=== PATIENT | female | born 1940 ===

== ENCOUNTER 2016-12-27 13:27 | Inpatient (IN) | payer MEDICARE, OTHER ==
[2016-12-27 13:27] VITALS: BMI 23.6
[2016-12-27] MEDS ORDERED: Albuterol-Ipratrop 3 mg / 0.5 (3 ml) UD ONE ×3 (13:31→19:40)
[2016-12-27] MEDS: Albuterol-Ipratrop 3 mg / 0.5 (3 ml) UD INH SCH ×2 (13:40→14:10)
[2016-12-27] MEDS ORDERED: Magnesium Sulfate 1 gm in D5W 200 ML IVPB ONE (13:47)
[2016-12-27 14:09] LABS: BASO # 0.1 K/uL (0.0-0.2); EOS # 0.5 K/uL (0.0-0.7); EOS % 6.2 % (0.0-4.0); LYMPH # 1.6 K/uL (1.0-4.3); LYMPH % 21.1 % (20.0-40.0); MEAN CELL VOLUME 73.1 fL (81.0-99.0); MEAN CORPUSCULAR HEMOGLOBIN 22.8 pg (27.0-31.0); MEAN CORPUSCULAR HGB CONC 31.2 g/dL (33.0-37.0); MEAN PLATELET VOLUME 8.6 fL (7.2-11.7); MONO # 0.5 K/uL (0.0-0.8); MONO % 6.4 % (0.0-10.0); RED CELL DISTRIBUTION WIDTH 17.7 % (11.5-14.5); WHITE BLOOD COUNT 7.8 K/uL (4.8-10.8)
[2016-12-27 14:13] LABS: CHLORIDE 101 mmol/L (98-107)
[2016-12-27 14:14] LABS: DRAW SITE RRA
[2016-12-27 14:14] LABS: POTASSIUM 4.4 mmol/L (3.6-5.2); SODIUM 138 mmol/L (132-148)
[2016-12-27 14:16] LABS: ALB/GLOB RATIO 1.4 (1.0-2.1); AST/SGOT 26 U/L (14-36); BILIRUBIN,TOTAL 0.2 mg/dL (0.2-1.3); BLOOD UREA NITROGEN 33 mg/dL (7-17); CARBON DIOXIDE 23 mmol/L (22-30); GFR AFRICAN-AMERICAN 44; TOTAL PROTEIN 7.4 g/dL (6.3-8.3)
[2016-12-27 14:17] LABS: ALKALINE PHOSPHATASE 54 U/L (38-126); ALT/SGPT 11 U/L (9-52); CALCIUM 9.2 mg/dl (8.6-10.4); GLUCOSE,RANDOM 108 mg/dL (65-105)
[2016-12-27] MEDS ORDERED: Albuterol 0.083% Inhal Sol (2.5 mg/3 mL) UD IH STA ×2 (14:49)
--- NOTE | 2016-12-27 15:22 | C.PDOC ---
History Of Present Illness 76 year old female presents to the ED C/O shortness of breath. Patient is audibly wheezing and speaking only 2-3 words at a time. Prior records reviewed show she has a history of asthma. HPI and ROS limited secondary to clinical condition. Time Seen by Provider: 12/27/16 13:41 Chief Complaint (Nursing): Respiratory Distress History Per: EMS History/Exam Limitations: clinical condition Onset/Duration Of Symptoms: Hrs Current Symptoms Are (Timing): Still Present Severity: Moderate Past Medical History Reviewed: Historical Data, Nursing Documentation, Vital Signs Vital Signs: Last Vital Signs Temp 98.4 F 01/01/17 07:00 Pulse 89 01/01/17 07:00 Resp 18 01/01/17 07:00 BP 147/81 01/01/17 07:00 Pulse Ox 98 01/01/17 07:00 - Medical History PMH: Anxiety, Arthritis, Asthma, Diabetes, Gastritis, HTN, Kidney Stones (3 MONTHS), Chronic Kidney Disease - [facility] Procedures INFLUENZA VACCINATION (09/24/14) VACCINATION NEC (07/20/13) Family History: States: Other Other Family History: noncontributory - Social History Hx Tobacco Use: No Hx Alcohol Use: No Hx Substance Use: No - Immunization History Hx Tetanus Toxoid Vaccination: No Hx Influenza Vaccination: No Hx Pneumococcal Vaccination: No Review Of Systems Review Of Systems: ROS cannot be obtained secondary to pt's inabilty to answer questions. (Limited secondary to clinical condition) Cardiovascular: Negative for: Chest Pain, Palpitations Respiratory: Positive for: Shortness of Breath, Wheezing Gastrointestinal: Negative for: Nausea, Vomiting, Abdominal Pain, Diarrhea Genitourinary: Negative for: Dysuria, Hematuria Physical Exam - Physical Exam Appears: Non-toxic, Other (+Moderate respiratory distress) Skin: Normal Color, Warm, Dry Head: Normacephalic Eye(s): bilateral: Normal Inspection Oral Mucosa: Moist Chest: Symmetrical, No Deformity Cardiovascular: Rhythm Regular (+Tachycardic) Respiratory: Accessory Muscle Use (+Moderate accessory muscle use), No Rales, No Rhonchi, Wheezing (+Diffuse expiratory wheezing bilaterally), Other (+ Audible wheezing, speaking in 1-2 word sentences) Gastrointestinal/Abdominal: Normal Exam, Bowel Sounds, Soft, No Tenderness Extremity: Normal ROM, No Pedal Edema, No Calf Tenderness, No Deformity Neurological/Psych: Oriented x3 ED Course And Treatment - Laboratory Results Result Diagrams: 01/01/17 11:09 01/01/17 11:09 ECG: Interpreted By Me, Viewed By Me ECG Rhythm: Sinus Tachycardia ECG Interpretation: Abnormal (tachycardic ) Interpretation Of ECG: Normal axis. No acute ST/T wave changes. Rate From EC (bpm) O2 Sat by Pulse Oximetry: 100 (RA) Pulse Ox Interpretation: Normal - Radiology CXR: Interpreted by Me, Viewed By Me (no infiltrates/effusions) Progress Note: Blood work, CXR, EKG ordered and reviewed. Patient placed on Bipap emergently. She was given IV solumedrol 125mg, IV magnesium sulfate 2g, Terbutaline SC, and duoneb treatments. Reevaluation Time: 15:35 Reassessment Condition: Improved (Patient reassessed, states she feels better. On exam, she has (decreased) expiratory wheezing B/L without accessory muscle use. Will need admission for asthma exacerbation.) - Physician Consult Information Physician Contacted: Valentina Farmer Outcome Of Conversation: Discussed patient with hospitalist, she agrees with admission for asthma exacerbation. Critical Care Time - Critical Care Note Total Time (in mins): 45 Documented critical care: time excludes all time spent performing seperately billable procedures. Medical Decision Making Medical Decision Making: differential diagnoses considered: asthma exacerbation, copd, chf, ID/ACS, pneumonia, PE, lung CA, pleural effusion, cardiac tamponade/pericardial effusion Disposition - Disposition Disposition: HOME/ ROUTINE Disposition Time: 15:43 Condition: FAIR - Clinical Impression Clinical Impression: Exacerbation of asthma, Dyspnea - Scribe Statement The provider has reviewed the documentation as recorded by the Scribe Santana Markham. Provider Attestation: All medical record entries made by the Scribe were at my direction and personally dictated by me. I have reviewed the chart and agree that the record accurately reflects my personal performance of the history, physical exam, medical decision making, and the department course for this patient. I have also personally directed, reviewed, and agree with the discharge instructions and disposition. Decision To Admit - Pt Status Changed To: Hospital Disposition Of: Inpatient - Admit Certification Admit to Inpatient:: After my assessment, the patient will require hospitalization for at least two midnights. This is because of the severity of symptoms shown, intensity of services needed, and/or the medical risk in this patient being treated as an outpatient. - InPatient: Physician Admission Certification: I certify that this patient requires 2 or more midnights of care for the following reason:: see notes - . Bed Request Type: Telemetry Admitting Physician: Valentina Farmer Patient Diagnosis: Exacerbation of asthma
[2016-12-27] MEDS ORDERED: Albuterol 0.083% Inhal Sol (2.5 mg/3 mL) UD ONE (15:38)
--- NOTE | 2016-12-27 15:50 | CP.PCM.HP ---
<Nilda Stafford - Last Filed: 12/27/16 17:30> History of Present Illness - History of Present Illness History of Present Illness: CC: shortness of breath for 2 days HPI: Patient is a 76 year old female with past medical history of DM, HTN, osteoporosis, asthma and shingles presenting with worsening shortness of breath and a cough for two days. Patient reports an extensive history of asthma but reports that over the past two days her symptoms would not resolve with her home medications. She also reported a cough over the past two days that was productive at first with yellow colored phlegm which was now more dry with some clear sputum. Patient was also complaining of body aches and pains in her legs bilaterally and in her lower back towards her left side. Patient denied any fever, chills, chest pain, palpitations, abdominal pain, nausea, vomiting, bowel /bladder complaints. Patient denied any recent travel or sick contacts. Patient denies ever being intubated. She was last seen and admitted at in September 2016 for similar complaints and was treated with IV steroids and nebulizers and had a negative septic workup and discharged on PO antibiotics and a medrol dose back and continued on her home medications. 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 absent: Chills, Fever - EENT Eyes: As Per HPI. absent: Change in Vision Ears: As Per HPI. absent: Dizziness Nose/Mouth/Throat: As Per HPI, Sore Throat. absent: Nasal Congestion - Cardiovascular Cardiovascular: As Per HPI, Dyspnea. absent: Chest Pain, Edema, Leg Edema, Palpitations - Respiratory Respiratory: As Per HPI, Cough, Dyspnea, Dyspnea on Exertion, Wheezing, Chest Congestion, Pain with Coughing. absent: Hemoptysis, Stridor, Excessive Mucous Production, Change in Mucous Color - Gastrointestinal Gastrointestinal: As Per HPI. absent: Abdominal Pain, Constipation, Diarrhea, Nausea, Vomiting - Genitourinary Genitourinary: As Per HPI. absent: Dysuria, Hematuria, Pyuria, Urinary Frequency - Musculoskeletal Musculoskeletal: As Per HPI, Arthralgias, Back Pain, Myalgias. absent: Numbness , Tingling - Integumentary Integumentary: As Per HPI. absent: Pruritus, Rash - Neurological Neurological: As Per HPI. absent: Dizziness, Weakness - Endocrine Endocrine: As Per HPI. absent: Palpitations - Hematologic/Lymphatic Hematologic: As Per HPI. absent: Easy Bleeding, Easy Bruising Past Patient History - Infectious Disease Hx of Infectious Diseases: None - Past Medical History & Family History Past Medical History?: Yes - Past Social History Smoking Status: Former Smoker - CARDIAC Hx Hypertension: Yes - PULMONARY Hx Asthma: Yes - NEUROLOGICAL Hx Neurological Disorder: No - HEENT Hx HEENT Problems: Yes Hx Cataracts: Yes - RENAL Hx Chronic Kidney Disease: Yes Hx Kidney Stones: Yes (3 MONTHS) - ENDOCRINE/METABOLIC Hx Endocrine Disorders: Yes Hx Diabetes Mellitus Type 2: Yes - HEMATOLOGICAL/ONCOLOGICAL Hx Blood Disorders: No - INTEGUMENTARY Hx Dermatological Problems: No - MUSCULOSKELETAL/RHEUMATOLOGICAL Hx Arthritis: Yes - GASTROINTESTINAL Hx Gastritis: Yes - GENITOURINARY/GYNECOLOGICAL Hx Genitourinary Disorders: No - PSYCHIATRIC Hx Anxiety: Yes Hx Substance Use: No - SURGICAL HISTORY Hx Surgeries: Yes Hx Section: Yes - ANESTHESIA Hx Anesthesia: Yes Hx Anesthesia Reactions: No Hx Malignant Hyperthermia: No Meds Allergies/Adverse Reactions: Allergies Allergy/AdvReac Type Severity Reaction Status Date / Time No Known Allergies Allergy Verified 02/05/17 15:52 Physical Exam - Constitutional Appears: Non-toxic, No Acute Distress - Head Exam Head Exam: NORMAL INSPECTION - Eye Exam Eye Exam: Normal appearance, PERRL. absent: Conjunctival injection, Scleral icterus Pupil Exam: NORMAL ACCOMODATION Additional comments: b/l cataracts - ENT Exam ENT Exam: Mucous Membranes Moist Additional comments: Patient on BiPAP - Neck Exam Neck exam: Positive for: Normal Inspection. Negative for: Lymphadenopathy, Tenderness - Respiratory Exam Respiratory Exam: Prolonged Expiratory Phase, Rhonchi (diffuse bilateral), Wheezes (diffuse bilateral). absent: Accessory Muscle Use, Chest Wall Tenderness, Clear to Auscultation Bilateral, Rales, Respiratory Distress, Stridor - Cardiovascular Exam Cardiovascular Exam: Tachycardia, REGULAR RHYTHM - GI/Abdominal Exam GI & Abdominal Exam: Normal Bowel Sounds, Soft. absent: Distended, Firm, Rigid , Tenderness - Extremities Exam Extremities exam: Positive for: normal inspection. Negative for: calf tenderness, pedal edema, tenderness - Back Exam Back exam: NORMAL INSPECTION. absent: rash noted, tenderness - Neurological Exam Neurological exam: Alert, Oriented x3 - Psychiatric Exam Psychiatric exam: Normal Affect, Normal Mood - Skin Skin Exam: Dry, Intact, Normal Color, Warm Results - Vital Signs Recent Vital Signs: Last Vital Signs Temp 97.9 F 12/27/16 13:36 Pulse 103 H 12/27/16 14:32 Resp 24 12/27/16 14:32 BP 161/67 H 12/27/16 14:32 Pulse Ox 100 12/27/16 15:28 - Labs Result Diagrams: 12/27/16 14:02 12/27/16 14:02 Labs: Laboratory Results - last 24 hr 12/27/16 12/27/16 12/27/16 13:40 14:02 14:08 WBC 7.8 RBC 3.97 Hgb 9.0 L Hct 29.0 L MCV 73.1 L D MCH 22.8 L MCHC 31.2 L RDW 17.7 H Plt Count 267 MPV 8.6 Neut % (Auto) 65.3 Lymph % (Auto) 21.1 [place] % (Auto) 6.4 Eos % (Auto) 6.2 H Baso % (Auto) 1.0 Neut # 5.1 Lymph # 1.6 [place] # 0.5 Eos # 0.5 Baso # 0.1 PT 11.5 INR 1.0 APTT 26 Puncture Site Rra pCO2 27 L pO2 326 H HCO3 26.3 ABG pH 7.54 H ABG Total CO2 23.9 ABG O2 Saturation 99.5 H ABG Base Excess 1.7 Yuri Test N/a ABG Potassium 3.9 A-a O2 Difference -3.0 Respiratory Index 0 Glucose 165 H Lactate 2.5 H FiO2 50.0 Inspiratory BiPAP 12 Expiratory BiPAP 6 Sodium 138 136.0 Potassium 4.4 Chloride 101 112.0 H Carbon Dioxide 23 Anion Gap 19 BUN 33 H Creatinine 1.4 H Est GFR ( Amer) 44 Est GFR (Non-Af Amer) 37 POC Glucose (mg/dL) 134 H Random Glucose 108 H Calcium 9.2 Total Bilirubin 0.2 AST 26 ALT 11 Alkaline Phosphatase 54 Total Creatine Kinase 157 H CK-MB (Mass) 4.08 H Troponin I < 0.0120 NT-Pro-B Natriuret Pep 476 Total Protein 7.4 Albumin 4.3 Globulin 3.1 Albumin/Globulin Ratio 1.4 Arterial Blood Potassium 3.9 Assessment & Plan - Assessment and Plan (Free Text) Assessment: 76 year old female PMHx asthma, DM, HTN, osteoporosis, shigles presenting with shortness of breath and cough for two days Plan: (1) Asthma Exacerbation Assessment and Plan: * In the ED, given Duonebs and Solumedrol 125mg IV X1, IV mag sulfate, terbutaline SC and placed on BiPAP * Solumedrol 40mg IV [id number] * Duoneb 3ml q4h * Peak flow: 40 * Singular 10mg PO HS * Phenergan with codeine for cough 5ml PO Q6H PRN * Mucinex 600mg PO BID * f/u repeat CXR in the AM * f/u d-dimer * f/u Strep pneumonaie, Legionella, Influenza AB, and Mycoplasma Igm * Avelox IVPB Q24 for pneumonia coverage Status: Acute (2) Chronic Anemia Assessment and Plan: * monitor H/H Status: chronic (3) Diabetes mellitus Assessment and Plan: * held metformin 500mg BID * ISS/Accuchecks ACHS * Gabapentin 100mg PO BID * follow up HgbA1c * Moderate consistent carb diet Status: Chronic (4) Hypertension Assessment and Plan: * verapamil 240mg po daily * HCTZ 25mg PO daily * hold SBP < 100, HR <60 Status: Chronic (5) Post herpetic neuralgia Assessment and Plan: * History of shingles * hold tramadol 50mg PO Q6hprn Status: Chronic (6) Lung nodule, solitary Assessment and Plan: * Patient with history on imaging CT chest noted for 3.5 nodule * Monitor Status: Chronic (7) Unspecified bladder mass Assessment and Plan: * Patient did not follow up with urology for cystoscopy * f/u UA and renal u/s Status: Chronic (8) Prophylactic measure Assessment and Plan: SCDs protonix 40mg IV daily heparin 5000 units [id number] NS @ 60cc/hr Heart healthy moderate consistent carb diet Status: Acute Plan discussed with Dr. Marleny Stafford PGY1 <Valentina Farmer V - Last Filed: 04/05/17 22:29> Results - Vital Signs Recent Vital Signs: Last Vital Signs Temp 98.3 F 01/05/17 15:12 Pulse 92 H 01/05/17 15:12 Resp 20 01/05/17 15:12 BP 165/85 H 01/05/17 15:12 Pulse Ox 99 01/05/17 15:12 - Labs Result Diagrams: 01/05/17 06:28 01/05/17 06:28 Attending/Attestation - Attestation I have personally seen and examined this patient.: Yes I have fully participated in the care of the patient.: Yes I have reviewed all pertinent clinical information: Yes Notes (Text): This is late computer entry for 12/27/16. Patient seen, examined, and case discussed with day-time resident. Discussed and agree with the assessment/plan written by the day-time resident.
[2016-12-27] MEDS ORDERED: Albuterol-Ipratrop 3 mg / 0.5 (3 ml) UD INH PRN ×2 (15:54→16:15)
[2016-12-27] MEDS ORDERED: Sodium Chloride 0.9% 1,000 ML IV SCH (16:45)
--- NOTE | 2016-12-27 16:57 | RAD ---
PROCEDURE: CHEST RADIOGRAPH, 1 VIEW HISTORY: SOB COMPARISON: Comparison made with chest radiograph 09/24/2016 and CTA chest 06/19/2016 FINDINGS: LUNGS: Hyperinflation with centrilobular emphysematous changes upper lobe predominance again noted however these changes were seen to better advantage on prior CTA. Suspect minor bibasilar atelectasis. Note is made of a curvilinear tubelike artifact overlying the right suprahilar and hilar region possibly representing overlying surface artifact. Clinical correlation with physical exam recommended. PLEURA: No pneumothorax or pleural fluid seen. CARDIOVASCULAR: Heart appears upper limits of normal/ borderline enlarged. OSSEOUS STRUCTURES: No significant abnormalities. VISUALIZED UPPER ABDOMEN: Normal. OTHER FINDINGS: None. IMPRESSION: Hyperinflation with centrilobular emphysematous changes upper lobe predominance again noted however these changes were seen to better advantage on prior CTA. Suspect minor bibasilar atelectasis. Note is made of a curvilinear tubelike artifact overlying the right suprahilar and hilar region possibly representing overlying surface artifact. Clinical correlation with physical exam recommended.
[2016-12-27] MEDS: MethylPREDNISolone 40 mg Vial IVP SCH (17:26)
[2016-12-27] MEDS: Moxifloxacin IV 400mg/250ml NS 250 ML IVPB SCH (17:36)
[2016-12-27] MEDS: guaiFENesin 600 mg ER Tab PO SCH (18:53)
[2016-12-27] MEDS: (Novolog) Insulin Aspart, Recombinant 100 u/ml 10 ml vial SC SCH (22:57)
[2016-12-27 23:00] LABS: VENOUS BLOOD GAS BASE EXCESS -7.6 mmol/L (0.0-2.0); VENOUS BLOOD GAS PCO2 27 mmHg (40-60); VENOUS BLOOD PH 7.38 (7.32-7.43)
--- NOTE | 2016-12-27 23:26 | CARD ---
APPROVED REPORT EKG Measurement Heart [id number] <Conclusion> Sinus tachycardia Otherwise normal ECG
[2016-12-27 23:34] LABS: VENOUS BLOOD GAS BASE EXCESS -6.5 mmol/L (0.0-2.0); VENOUS BLOOD GAS PCO2 25 mmHg (40-60); VENOUS BLOOD PH 7.42 (7.32-7.43)
[2016-12-28] MEDS: Sodium Chloride 0.9% 1,000 ML IV SCH ×4 (00:40→22:16)
[2016-12-28] MEDS: MethylPREDNISolone 40 mg Vial IVP SCH ×4 (01:00→23:50)
[2016-12-28] MEDS ORDERED: MethylPREDNISolone 40 mg Vial ONE ×2 (01:03→09:02)
[2016-12-28] MEDS ORDERED: Iohexol 240 (50 ml) ONE (01:36)
--- NOTE | 2016-12-28 03:57 | CT ---
EXAM: CT Abdomen and Pelvis With Intravenous Contrast CLINICAL HISTORY: 76 years old, female; Pain; Other: Lactic acidosis TECHNIQUE: Axial computed tomography images of the abdomen and pelvis with intravenous contrast. This CT exam was performed using one or more of the following dose reduction techniques: automated exposure control, adjustment of the mA and/or kV according to patient size, and/or use of iterative reconstruction technique. Coronal and sagittal reformatted images were created and reviewed. CONTRAST: 240 mL of oral administered intravenously. EXAM DATE/TIME: 12/28/2016 12:59 AM COMPARISON: No relevant prior studies available. FINDINGS: LIMITATIONS: Exam is somewhat limited by mild streak/motion artifact. LOWER THORAX: Very small pericardial effusion. Dense septum sign noted in the heart, a finding which can be seen with anemia. ABDOMEN: LIVER: No acute abnormality of the liver identified. GALLBLADDER AND BILE DUCTS: No CT evidence of acute cholecystitis. No evidence of significant biliary ductal dilatation. PANCREAS: No CT evidence of acute pancreatitis. SPLEEN: No acute abnormality of the spleen identified. ADRENALS: No acute abnormality of the adrenal glands identified. KIDNEYS AND URETERS: Moderate to severe right hydroureteronephrosis. No causative obstructing stones are seen, and this is suspected to be secondary to obstruction of the right ureter, at the level of the right UVJ, by the right sided bladder mass. Right renal cortical thinning, suggestive of chronic right hydronephrosis. Tiny, nonobstructing right renal stone. Low density lesion in the right kidney, measuring 2.8 cm, most likely a cyst. STOMACH AND BOWEL: Retained stool noted throughout the colon. No evidence of large bowel obstruction. No evidence of small bowel obstruction. No acute abnormality of the stomach or duodenum identified. APPENDIX: Appendix is seen, and is within normal limits in appearance. PELVIS: BLADDER: Rounded, masslike area of soft tissue density is seen in the bladder lumen posteriorly and on the right, which has a CT attenuation of 26 Hounsfield units. This measures 4.2 cm maximally, and is suspicious for a bladder mass, less likely resolving clot. Similar appearing but smaller round, masslike density in the bladder lumen anteriorly and on the left, measuring 1.1 cm, suspicious for a second bladder mass. REPRODUCTIVE:No acute abnormality of the reproductive organs is seen. No acute abnormality of the uterus identified. No evidence of large adnexal masses. ABDOMEN and PELVIS: INTRAPERITONEAL SPACE: No evidence of free intraperitoneal air or fluid. BONES/JOINTS: Small sclerotic lesion in the left ischial tuberosity. Tiny sclerotic lesion in the right iliac bone. These could represent bone islands, however, consider followup bone scan to exclude early sclerotic bony metastases, on a nonemergent basis. Bony structures appear demineralized. SOFT TISSUES: No acute abnormality of the visualized soft tissues is seen. VASCULATURE: No evidence of abdominal aortic aneurysm. No evidence of periaortic hemorrhage. LYMPH NODES: No evidence of diffuse lymphadenopathy. IMPRESSION: - Findings suspicious for bilateral bladder masses (less likely resolving bladder clot). The larger mass, located on the right posteriorly, measures 4.2 cm, and appears to be causing obstruction of the right ureter/right hydroureteronephrosis. Further workup is recommended. - Findings which can be seen with anemia. Recommend clinical correlation. - Small sclerotic bony lesions. See above. - See above for remaining findings.
[2016-12-28] MEDS ORDERED: Albuterol-Ipratrop 3 mg / 0.5 (3 ml) UD INH SCH (04:00)
[2016-12-28 04:24] LABS: BASO % 0.6 % (0.0-2.0); HEMATOCRIT 24.9 % (34.0-47.0); LYMPH # 0.7 K/uL (1.0-4.3); LYMPH % 12.8 % (20.0-40.0); MEAN CELL VOLUME 71.9 fL (81.0-99.0); MEAN CORPUSCULAR HEMOGLOBIN 23.1 pg (27.0-31.0); MEAN CORPUSCULAR HGB CONC 32.1 g/dL (33.0-37.0); MEAN PLATELET VOLUME 8.7 fL (7.2-11.7); MONO # 0.1 K/uL (0.0-0.8); RED CELL DISTRIBUTION WIDTH 17.3 % (11.5-14.5); WHITE BLOOD COUNT 5.7 K/uL (4.8-10.8)
[2016-12-28 04:43] LABS: POTASSIUM 4.1 mmol/L (3.6-5.2)
[2016-12-28 04:44] LABS: VENOUS BLOOD GAS BASE EXCESS -2.6 mmol/L (0.0-2.0); VENOUS BLOOD GAS PCO2 36 mmHg (40-60); VENOUS BLOOD PH 7.39 (7.32-7.43)
[2016-12-28 04:45] LABS: ALB/GLOB RATIO 1.3 (1.0-2.1); BILIRUBIN,TOTAL 0.2 mg/dL (0.2-1.3); TOTAL PROTEIN 6.9 g/dL (6.3-8.3)
[2016-12-28 04:46] LABS: CALCIUM 8.5 mg/dl (8.6-10.4); MAGNESIUM 1.8 mg/dL (1.6-2.3); PHOSPHOROUS 4.7 mg/dL (2.5-4.5)
[2016-12-28 05:15] LABS: RBC URINE 121 /hpf (0-3); URINE BILIRUBIN NEGATIVE (NEGATIVE); URINE BLOOD 2+ (NEGATIVE); URINE COLOR Yellow (YELLOW); URINE GLUCOSE (UA) NORMAL (Normal); URINE HYALINE CAST 0-2 /lpf (0-2); URINE KETONE NEGATIVE (NEGATIVE); URINE LEUKOCYTE ESTERASE NEG Leu/uL (Negative); URINE PROTEIN 2+ mg/dL (NEGATIVE); URINE UROBILINOGEN NORMAL mg/dL (0.2-1.0); WBC URINE 6 /hpf (0-5)
[2016-12-28] MEDS: (Novolog) Insulin Aspart, Recombinant 100 u/ml 10 ml vial SC SCH ×4 (09:02→22:08)
[2016-12-28] MEDS ORDERED: (Novolog) Insulin Aspart, Recombinant 100 u/ml 10 ml vial ONE ×2 (09:02→13:19)
[2016-12-28 09:52] LABS: VENOUS BLOOD GAS BASE EXCESS 0.4 mmol/L (0.0-2.0); VENOUS BLOOD GAS PCO2 31 mmHg (40-60); VENOUS BLOOD PH 7.48 (7.32-7.43)
[2016-12-28] MEDS: guaiFENesin 600 mg ER Tab PO SCH ×2 (10:01→18:07)
[2016-12-28] MEDS: Verapamil 240 mg ER Tab PO SCH (10:01)
--- NOTE | 2016-12-28 11:35 | RAD ---
HISTORY: cough COMPARISON: 12/27/2016 TECHNIQUE: Chest PA and lateral FINDINGS: LUNGS: Developing hazy opacities in the lung bases. PLEURA: Possible small right-sided pleural effusion. Biapical pleural parenchymal thickening noted. CARDIOVASCULAR: Normal. OSSEOUS STRUCTURES: The osseous structures demonstrate degenerative changes. Calcific tendinosis was in the right shoulder. VISUALIZED UPPER ABDOMEN: Upper abdomen is suboptimally evaluated. OTHER FINDINGS: None. IMPRESSION: Possible small right-sided pleural effusion. Developing hazy opacities in the lung bases. Underlying infection cannot be excluded.
--- NOTE | 2016-12-28 15:42 | US ---
PROCEDURE: Ultrasound of the Kidneys HISTORY: ckd COMPARISON: 06/22/2016 ultrasound of the kidneys. TECHNIQUE: Sonogram of the kidneys. FINDINGS: RIGHT KIDNEY: Measures: 10.7 x 4.9 x 4.4 cm. Thin and mildly echogenic renal cortex. Severe hydronephrosis with echogenic debris within the collecting system. LEFT KIDNEY: Measures: 9.1 x 5.1 x 5.2 cm. Mildly echogenic cortex. No hydronephrosis. OTHER FINDINGS: Heterogeneous echogenicity mass in the urinary bladder measuring 3.4 x 3.6 x 4.4 centimeters. Doppler interrogation demonstrates vascularity within it. Additional smaller mass measuring 1.5 x 1.4 x 1.5 centimeter also noted from the nondependent aspect of the urinary bladder wall. IMPRESSION: Re- demonstration severe hydronephrosis (worse than the prior ultrasound from 06/22/2016) of the right renal collecting system with echogenic debris within it. Bladder mass at least to identified the larger measuring 3.4 x 3.6 x 4.4 centimeters. This mass has increased in size since the prior ultrasound. Direct visualization with cystoscopy recommended. Bilateral echogenic cortex suggestive of renal parenchymal disease.
[2016-12-28] MEDS: Promethazine/Cod 6.25mg-10mg/5ml Syr UD PO PRN ×2 (17:12→23:58)
[2016-12-28] MEDS: Moxifloxacin IV 400mg/250ml NS 250 ML IVPB SCH (18:57)
--- NOTE | 2016-12-28 20:31 | CP.PCM.PN ---
<Phill Ruiz - Last Filed: 12/28/16 21:52> Subjective - Date & Time of Evaluation Date of Evaluation: 12/28/16 Time of Evaluation: 09:30 - Subjective Subjective: 76 year old female with past medical history of DM, HTN, osteoporosis, asthma and shingles presenting with worsening shortness of breath and productive cough for two days. Pt's lactic acid has been as high as 9.5, but has normalized over the last 2 days to 2.1. She has improved after breathing treatments and Solumedrol. Possible etiologies could be due to asthma exacerbation vs anemia vs tremors vs Metformin. Also, pt. failed to follow up with her urologist in regards to a bladder tumor, which has grown in size and is causing a right hydroureteronephrosis. Today, pt. was very pleasant, off her Bipap and denied headache, fever, chills, chest pain but has mild shortness of breath. Objective - Vital Signs/Intake and Output Vital Signs (last 24 hours): Temp Pulse Resp BP Pulse Ox 98.4 F 93 H 20 108/61 96 12/28/16 15:22 12/28/16 15:22 12/28/16 15:22 12/28/16 15:22 12/28/16 15:22 - Medications Medications: Current Medications Acetaminophen (Tylenol 325mg Tab) 650 mg PO Q6 PRN PRN Reason: Pain, moderate (4-7) Last Admin: 12/27/16 22:19 Dose: 650 mg Gabapentin (Neurontin) 100 mg PO BID [facility] Last Admin: 12/28/16 18:10 Dose: 100 mg Guaifenesin (Mucinex La) 600 mg PO BID [facility] Last Admin: 12/28/16 18:07 Dose: 600 mg Heparin Sodium (Porcine) (Heparin) 5,000 units SC Q12 [facility] Last Admin: 12/28/16 10:01 Dose: 5,000 units Hydrochlorothiazide (Hydrodiuril) 25 mg PO DAILY [facility] Last Admin: 12/28/16 10:00 Dose: 25 mg Moxifloxacin HCl (Avelox Iv 400mg/250ml Ns) 250 mls @ 167 mls/hr IVPB Q24H [facility] Last Admin: 12/28/16 18:57 Dose: 167 mls/hr Sodium Chloride (Sodium Chloride 0.9%) 1,000 mls @ 75 mls/hr IV .[id number] [facility] Last Admin: 12/28/16 15:50 Dose: 75 mls/hr Insulin Aspart (Novolog) 0 unit SC ACHS [facility] PRN Reason: Protocol Last Admin: 12/28/16 18:10 Dose: Not Given Methylprednisolone (Solu-Medrol) 40 mg IVP Q8H [facility] Last Admin: 12/28/16 17:11 Dose: 40 mg Montelukast Sodium (Singulair) 10 mg PO HS [facility] Last Admin: 12/27/16 22:18 Dose: 10 mg Pantoprazole Sodium (Protonix Inj) 40 mg IVP DAILY [facility] Last Admin: 12/28/16 10:00 Dose: 40 mg Promethazine HCl/Codeine (Phenergan/Codeine Oral Syrup) 5 ml PO Q6H PRN PRN Reason: Cough Last Admin: 12/28/16 17:12 Dose: 5 ml Verapamil HCl (Calan Sr Tab) 240 mg PO DAILY [facility] Last Admin: 12/28/16 10:01 Dose: 240 mg - Labs Labs: 12/28/16 04:20 12/28/16 04:20 PT 11.5 SECONDS (9.7-12.2) 12/27/16 14:02 INR 1.0 12/27/16 14:02 APTT 26 SECONDS (21-34) 12/27/16 14:02 - Constitutional Appears: No Acute Distress - Head Exam Head Exam: ATRAUMATIC, NORMOCEPHALIC - Eye Exam Eye Exam: EOMI - ENT Exam ENT Exam: Mucous Membranes Moist - Neck Exam Neck Exam: Full ROM, Normal Inspection. absent: Lymphadenopathy - Respiratory Exam Respiratory Exam: Wheezes, NORMAL BREATHING PATTERN - Cardiovascular Exam Cardiovascular Exam: REGULAR RHYTHM, RRR, +S1, +S2 - GI/Abdominal Exam GI & Abdominal Exam: Soft, Normal Bowel Sounds. absent: Tenderness - Extremities Exam Extremities Exam: Full ROM. absent: Joint Swelling - Neurological Exam Neurological Exam: Alert, Awake, Oriented x3 - Psychiatric Exam Psychiatric exam: Normal Affect, Normal Mood - Skin Skin Exam: Dry, Intact, Normal Color, Warm Assessment and Plan - Assessment and Plan (Free Text) Plan: (1) Asthma Exacerbation * In the ED, given Duonebs and Solumedrol 125mg IV X1, IV mag sulfate, terbutaline SC and placed on BiPAP * Solumedrol 40mg IV [id number] * Duoneb 3ml q4h * Peak flow: 40 * Singular 10mg PO HS * Phenergan with codeine for cough 5ml PO Q6H PRN * Mucinex 600mg PO BID * 12/27 CXR shows hyperinflation with centrilobular emphysematous changes in upper lobe - please see full report * 12/28 CXR shows possible small right-sided effusion, developing hazy opacities in the lung bases - please see full report * Blood Culture - received * Urine Culture - received * d-dimer negative * Strep pneumonaie ordered * Legionella ordered * Influenza AB negative * Mycoplasma IgM ordered * Procalcitonin ordered * Avelox IVPB Q24 for pneumonia coverage (2) Chronic Anemia * monitor H/H * dropped to 8.0 asymptomatic * Fe studies from Jun 2016 show Fe def and low Fe Saturation, with low normal ferritin * order Fe study * also possibly 2/2 to hydronephrosis (3) Diabetes mellitus * held metformin 500mg BID * ISS High Dose/Accuchecks ACHS * Gabapentin 100mg PO BID * HgbA1c 7.1 * Moderate consistent carb diet (4) Hypertension * verapamil 240mg po daily * HCTZ 25mg PO daily * hold SBP < 100, HR <60 (5) Post herpetic neuralgia * History of shingles * hold tramadol 50mg PO Q6hprn (6) Lung nodule, solitary * Patient with history on imaging CT chest noted for 3.5 nodule * Monitor (7) Unspecified bladder mass * Patient did not follow up with urology for cystoscopy * UA - postive for protein, RBCs, WBCs * Renal U/S - please see full report - severe hydronephrosis(worse from 06/21), of the right renal collecting system with echogenic debris - bladder mass has increased in size from previous - recommend cystoscopy - BL echogenic cortex suggestive of renal parenchymal disease * Abd/Pel CT PO Contrast only - please see full report -findings suspicious for BL bladder masses -larger mass causing right hydroureteronephrosis * consult Urology - Dr. Brock - Cytology - Bone Scan Whole Body (8) Prophylactic measure SCDs protonix 40mg IV daily heparin 5000 units [id number] NS @ 60cc/hr Heart healthy moderate consistent carb diet <Lex Herrmann - Last Filed: 12/30/16 15:36> Objective - Vital Signs/Intake and Output Vital Signs (last 24 hours): Temp Pulse Resp BP Pulse Ox 98.5 F 104 H 18 163/72 H 96 12/30/16 07:00 12/30/16 07:55 12/30/16 07:00 12/30/16 07:00 12/30/16 07:00 Intake and Output: 12/30/16 12/30/16 06:59 18:59 Intake Total 350 Balance 350 - Medications Medications: Current Medications Acetaminophen (Tylenol 325mg Tab) 650 mg PO Q6 PRN PRN Reason: Pain, moderate (4-7) Last Admin: 12/27/16 22:19 Dose: 650 mg Albuterol/Ipratropium (Duoneb 3 Mg/0.5 Mg (3 Ml) Ud) 3 ml INH RQ6 [facility] Last Admin: 12/30/16 13:39 Dose: 3 ml Calcium/Vitamin D (Oscal-D 250 Mg-125 Units Tab) 1 tab PO ONCE ONE Stop: 12/31/16 11:06 Gabapentin (Neurontin) 100 mg PO BID [facility] Last Admin: 12/30/16 10:01 Dose: 100 mg Guaifenesin (Mucinex La) 600 mg PO BID [facility] Last Admin: 12/30/16 10:02 Dose: 600 mg Heparin Sodium (Porcine) (Heparin) 5,000 units SC Q12 [facility] Last Admin: 12/30/16 10:02 Dose: 5,000 units Hydrochlorothiazide (Hydrodiuril) 25 mg PO DAILY [facility] Last Admin: 12/30/16 10:02 Dose: 25 mg Moxifloxacin HCl (Avelox Iv 400mg/250ml Ns) 250 mls @ 167 mls/hr IVPB Q24H [facility] Last Admin: 12/29/16 16:59 Dose: 167 mls/hr Insulin Aspart (Novolog) 0 unit SC ACHS [facility] PRN Reason: Protocol Last Admin: 12/30/16 12:27 Dose: 2 unit Methylprednisolone (Solu-Medrol) 40 mg IVP Q8H [facility] Last Admin: 12/30/16 08:29 Dose: 40 mg Montelukast Sodium (Singulair) 10 mg PO HS [facility] Last Admin: 04/25/17 21:14 Dose: 10 mg Pantoprazole Sodium (Protonix Inj) 40 mg IVP DAILY [facility] Last Admin: 12/30/16 10:01 Dose: 40 mg Promethazine HCl/Codeine (Phenergan/Codeine Oral Syrup) 5 ml PO Q6H PRN PRN Reason: Cough Last Admin: 12/30/16 00:55 Dose: 5 ml Verapamil HCl (Calan Sr Tab) 240 mg PO DAILY [facility] Last Admin: 12/30/16 10:01 Dose: 240 mg - Labs Labs: 12/30/16 06:18 12/30/16 06:18 PT 11.5 SECONDS (9.7-12.2) 12/27/16 14:02 INR 1.0 12/27/16 14:02 APTT 26 SECONDS (21-34) 12/27/16 14:02 Attending/Attestation - Attestation I have personally seen and examined this patient.: Yes I have fully participated in the care of the patient.: Yes I have reviewed all pertinent clinical information, including history, physical exam and plan: Yes Notes (Text): 12/30/16 15:31 Patient was seen and examined at bedside with the resident. She still complains of wheezing. We will request pulmonary evaluation Urology consultation requested. We will follow up recommendations regarding bladder mass Continue current medical management Agree with the above history and physical and assessment/plan but the resident.
[2016-12-29 06:23] LABS: ALB/GLOB RATIO 1.3 (1.0-2.1); BILIRUBIN,TOTAL 0.1 mg/dL (0.2-1.3); POTASSIUM 4.2 mmol/L (3.6-5.2); TOTAL PROTEIN 6.5 g/dL (6.3-8.3)
[2016-12-29 06:38] LABS: BASO % 0.1 % (0.0-2.0); HEMATOCRIT 25.1 % (34.0-47.0); LYMPH # 0.9 K/uL (1.0-4.3); MEAN CELL VOLUME 72.3 fL (81.0-99.0); MEAN CORPUSCULAR HEMOGLOBIN 22.6 pg (27.0-31.0); MEAN CORPUSCULAR HGB CONC 31.3 g/dL (33.0-37.0); MEAN PLATELET VOLUME 8.9 fL (7.2-11.7); MONO # 0.3 K/uL (0.0-0.8); MONO % 1.7 % (0.0-10.0); PLATELET COUNT 222 K/uL (130-400); RED CELL DISTRIBUTION WIDTH 17.8 % (11.5-14.5); WHITE BLOOD COUNT 17.1 K/uL (4.8-10.8)
[2016-12-29] MEDS: (Novolog) Insulin Aspart, Recombinant 100 u/ml 10 ml vial SC SCH ×4 (08:16→21:14)
[2016-12-29 09:11] LABS: NEUTROPHIL 94 % (50-75); TOTAL CELLS COUNTED 100
[2016-12-29 09:12] LABS: LARGE PLATELETS PRESENT
[2016-12-29] MEDS: MethylPREDNISolone 40 mg Vial IVP SCH ×3 (09:41→23:53)
[2016-12-29] MEDS: guaiFENesin 600 mg ER Tab PO SCH ×2 (09:42→17:13)
[2016-12-29] MEDS: Verapamil 240 mg ER Tab PO SCH (09:50)
--- NOTE | 2016-12-29 10:27 | CP.PCM.PN ---
<Phill Ruiz - Last Filed: 12/29/16 20:27> Subjective - Date & Time of Evaluation Date of Evaluation: 12/29/16 Time of Evaluation: 07:20 - Subjective Subjective: 76 year old female with past medical history of DM, HTN, osteoporosis, asthma and shingles presenting with worsening shortness of breath and productive cough for two days. Overnight, she had an episode of asthma which was relieved with Albuterol and complained of incrasing abdominal pain, which she stated was constant and 2/10. Today, it was explained to the pt. she had multiple bladder masses. She was unaware of having a tumor or remember having to follow up with Dr. Bingham. She still remains in an optimistic mood. She denies headache, fever, chills, chest pain. She complains of shortness of breath and abdominal pain. Objective - Vital Signs/Intake and Output Vital Signs (last 24 hours): Temp Pulse Resp BP Pulse Ox 98.1 F 101 H 20 140/69 98 12/29/16 07:00 12/29/16 09:10 12/29/16 07:00 12/29/16 07:00 12/29/16 07:00 Intake and Output: 12/29/16 12/29/16 06:59 18:59 Intake Total 900 Balance 900 - Medications Medications: Current Medications Acetaminophen (Tylenol 325mg Tab) 650 mg PO Q6 PRN PRN Reason: Pain, moderate (4-7) Last Admin: 12/27/16 22:19 Dose: 650 mg Gabapentin (Neurontin) 100 mg PO BID [facility] Last Admin: 12/29/16 09:41 Dose: 100 mg Guaifenesin (Mucinex La) 600 mg PO BID [facility] Last Admin: 12/29/16 09:42 Dose: 600 mg Heparin Sodium (Porcine) (Heparin) 5,000 units SC Q12 [facility] Last Admin: 12/29/16 09:42 Dose: 5,000 units Hydrochlorothiazide (Hydrodiuril) 25 mg PO DAILY [facility] Last Admin: 12/29/16 09:58 Dose: 25 mg Moxifloxacin HCl (Avelox Iv 400mg/250ml Ns) 250 mls @ 167 mls/hr IVPB Q24H [facility] Last Admin: 12/28/16 18:57 Dose: 167 mls/hr Sodium Chloride (Sodium Chloride 0.9%) 1,000 mls @ 75 mls/hr IV .[id number] [facility] Last Admin: 12/28/16 22:16 Dose: 75 mls/hr Insulin Aspart (Novolog) 0 unit SC ACHS [facility] PRN Reason: Protocol Last Admin: 12/29/16 08:16 Dose: 2 unit Methylprednisolone (Solu-Medrol) 40 mg IVP Q8H [facility] Last Admin: 12/29/16 09:41 Dose: 40 mg Montelukast Sodium (Singulair) 10 mg PO HS [facility] Last Admin: 12/28/16 22:08 Dose: 10 mg Pantoprazole Sodium (Protonix Inj) 40 mg IVP DAILY [facility] Last Admin: 12/29/16 09:42 Dose: 40 mg Promethazine HCl/Codeine (Phenergan/Codeine Oral Syrup) 5 ml PO Q6H PRN PRN Reason: Cough Last Admin: 12/28/16 23:58 Dose: 5 ml Verapamil HCl (Calan Sr Tab) 240 mg PO DAILY [facility] Last Admin: 12/29/16 09:50 Dose: 240 mg - Labs Labs: 12/29/16 06:30 12/29/16 06:48 PT 11.5 SECONDS (9.7-12.2) 12/27/16 14:02 INR 1.0 12/27/16 14:02 APTT 26 SECONDS (21-34) 12/27/16 14:02 - Constitutional Appears: Non-toxic, No Acute Distress - Head Exam Head Exam: ATRAUMATIC, NORMOCEPHALIC - Eye Exam Eye Exam: EOMI - ENT Exam ENT Exam: Mucous Membranes Moist - Respiratory Exam Respiratory Exam: Wheezes, NORMAL BREATHING PATTERN - Cardiovascular Exam Cardiovascular Exam: REGULAR RHYTHM, RRR, +S1, +S2 - GI/Abdominal Exam GI & Abdominal Exam: Soft, Tenderness, Normal Bowel Sounds - Extremities Exam Extremities Exam: Full ROM. absent: Joint Swelling, Pedal Edema - Neurological Exam Neurological Exam: Alert, Awake, Oriented x3 - Psychiatric Exam Psychiatric exam: Normal Affect, Normal Mood - Skin Skin Exam: Dry, Intact, Normal Color, Warm Assessment and Plan - Assessment and Plan (Free Text) Plan: (1) Asthma Exacerbation * In the ED, given Duonebs and Solumedrol 125mg IV X1, IV mag sulfate, terbutaline SC and placed on BiPAP * Solumedrol 40mg IV [id number] * Duoneb 3ml q6h restarted due to episode of difficulty breathing overnight * Peak flow: 40 * Singular 10mg PO HS * Phenergan with codeine for cough 5ml PO Q6H PRN * Mucinex 600mg PO BID * 12/27 CXR shows hyperinflation with centrilobular emphysematous changes in upper lobe - please see full report * 12/28 CXR shows possible small right-sided effusion, developing hazy opacities in the lung bases - please see full report * 12/29 CT Chest please see full report -left pleural effusion possible -emphysetmatous changes -left upper lobe 5-6mm nodule similar to 06/21 study - consider f/u CT in 12 months -right parapelvic cysts and left adrenal hyperplasia and/or small benign adenoma * Blood Culture - No growth after 24 hours * Urine Culture - no growth * d-dimer negative * Strep pneumonaie ordered * Legionella ordered * Influenza AB negative * Mycoplasma IgM ordered * Procalcitonin has been collected * Avelox IVPB Q24 for pneumonia coverage (2) Chronic Anemia * monitor H/H * dropped to 8.0 asymptomatic * Fe studies from Jun 2016 show Fe def and low Fe Saturation, with low normal ferritin * Fe study shows Fe def with low Fe sat @ 7.8 and normal TIBC * also possibly 2/2 to hydronephrosis (3) Diabetes mellitus * held metformin 500mg BID * ISS High Dose/Accuchecks ACHS * Gabapentin 100mg PO BID * HgbA1c 7.1 * Moderate consistent carb diet (4) Hypertension * verapamil 240mg po daily * HCTZ 25mg PO daily * hold SBP < 100, HR <60 (5) Post herpetic neuralgia * History of shingles * hold tramadol 50mg PO Q6hprn (6) Lung nodule, solitary * Patient with history on imaging CT chest noted for 3.5 nodule * Monitor (7) Unspecified bladder mass * Patient did not follow up with urology for cystoscopy * UA - postive for protein, RBCs, WBCs * Renal U/S - please see full report - severe hydronephrosis(worse from 06/21), of the right renal collecting system with echogenic debris - bladder mass has increased in size from previous - recommend cystoscopy - BL echogenic cortex suggestive of renal parenchymal disease * Abd/Pel CT PO Contrast only - please see full report -findings suspicious for BL bladder masses -larger mass causing right hydroureteronephrosis * consult Urology - Dr. Brock - Cytology - Bone Scan Whole Body - please see full report -Indeterminate finding anterior right 7th rib (8) Prophylactic measure SCDs protonix 40mg IV daily heparin 5000 units [id number] NS @ 60cc/hr Heart healthy moderate consistent carb diet <Lex Herrmann - Last Filed: 12/30/16 17:53> Objective - Vital Signs/Intake and Output Vital Signs (last 24 hours): Temp Pulse Resp BP Pulse Ox 98.2 F 92 H 20 162/65 H 95 12/30/16 15:28 12/30/16 15:55 12/30/16 15:28 12/30/16 15:28 12/30/16 15:28 Intake and Output: 12/30/16 12/30/16 06:59 18:59 Intake Total 350 Balance 350 - Medications Medications: Current Medications Acetaminophen (Tylenol 325mg Tab) 650 mg PO Q6 PRN PRN Reason: Pain, moderate (4-7) Last Admin: 12/27/16 22:19 Dose: 650 mg Albuterol/Ipratropium (Duoneb 3 Mg/0.5 Mg (3 Ml) Ud) 3 ml INH RQ6 [facility] Last Admin: 12/30/16 13:39 Dose: 3 ml Calcium/Vitamin D (Oscal-D 250 Mg-125 Units Tab) 1 tab PO ONCE ONE Stop: 12/31/16 11:06 Ferrous Sulfate (Feosol) 325 mg PO DAILY [facility] Gabapentin (Neurontin) 100 mg PO BID [facility] Last Admin: 12/30/16 17:44 Dose: 100 mg Guaifenesin (Mucinex La) 600 mg PO BID [facility] Last Admin: 12/30/16 17:45 Dose: 600 mg Heparin Sodium (Porcine) (Heparin) 5,000 units SC Q12 [facility] Last Admin: 12/30/16 10:02 Dose: 5,000 units Hydrochlorothiazide (Hydrodiuril) 25 mg PO DAILY [facility] Last Admin: 12/30/16 10:02 Dose: 25 mg Moxifloxacin HCl (Avelox Iv 400mg/250ml Ns) 250 mls @ 167 mls/hr IVPB Q24H [facility] Last Admin: 12/30/16 17:42 Dose: 167 mls/hr Insulin Aspart (Novolog) 0 unit SC ACHS [facility] PRN Reason: Protocol Last Admin: 12/30/16 17:44 Dose: 10 unit Methylprednisolone (Solu-Medrol) 40 mg IVP Q8H [facility] Last Admin: 12/30/16 17:43 Dose: 40 mg Montelukast Sodium (Singulair) 10 mg PO HS [facility] Last Admin: 12/29/16 21:14 Dose: 10 mg Pantoprazole Sodium (Protonix Inj) 40 mg IVP DAILY [facility] Last Admin: 12/30/16 10:01 Dose: 40 mg Promethazine HCl/Codeine (Phenergan/Codeine Oral Syrup) 5 ml PO Q6H PRN PRN Reason: Cough Last Admin: 12/30/16 00:55 Dose: 5 ml Verapamil HCl (Calan Sr Tab) 240 mg PO DAILY [facility] Last Admin: 12/30/16 10:01 Dose: 240 mg - Labs Labs: 12/30/16 06:18 12/30/16 06:18 PT 11.5 SECONDS (9.7-12.2) 12/27/16 14:02 INR 1.0 12/27/16 14:02 APTT 26 SECONDS (21-34) 12/27/16 14:02 Attending/Attestation - Attestation I have personally seen and examined this patient.: Yes I have fully participated in the care of the patient.: Yes I have reviewed all pertinent clinical information, including history, physical exam and plan: Yes Notes (Text): 12/30/16 17:52 Patient was seen and examined at bedside with the resident Continue IV steroids and nebulizing treatment and pulmonary evaluation requested Urology evaluation requested for bladder mass I discussed the plan of care with the resident and I agree with the above history and physical and assessment/plan but the resident.
[2016-12-29] MEDS: Albuterol-Ipratrop 3 mg / 0.5 (3 ml) UD INH SCH ×2 (13:41→19:16)
--- NOTE | 2016-12-29 14:40 | CT ---
PROCEDURE: CT Chest without contrast HISTORY: opacity in lung bases COMPARISON: 06/19/2016 angio chest PE protocol. Chest x-ray two views 06/29/2017 and a 03/07/2016 study TECHNIQUE: Contiguous axial images were obtained through the chest without intravenous contrast enhancement. Sagittal and coronal reconstructions were performed. Radiation dose (DLP): 190 mGy-cm. This CT exam was performed using one or more of the following dose reduction techniques: Automated exposure control, adjustment of the mA and/or kV according to patient size, and/or use of iterative reconstruction technique. FINDINGS: LUNGS: Left lower lobe posterior subsegmental atelectasis contiguous pleural thickening. Possible minimal left pleural effusion. Bilateral patchy centri lobular emphysematous changes. No large blebs or bulla Minimal central bilateral fairly symmetrical peribronchial thickening/minimal bronchiectasis -not significantly changed with 06/19/2016. Biapical tiny granulomatous changes -similar. A 5 to 6 mm left upper lobe solid-appearing nodule with minimal lobulation suggested this is unchanged with the 06/19/2016 study. Continued surveillance recommended. Tiny right upper lobe subpleural 1 to 3 mm nodules -similar-appearing. Possible tiny subpleural lymph nodes MEDIASTINUM: Atherosclerotic vascular calcification -thoracic aorta. No aneurysm. Normal sized heart. Main pulmonary artery unremarkable. No vascular congestion. No lymphadenopathy. Benign-appearing few lymph nodes noted PLEURA: Left lower lobe posterior/ dependent pleural thickening with adjacent to subsegmental atelectasis No pneumothorax. BONES: No fracture. No destructive lesion. Spondylosis UPPER ABDOMEN: Right parapelvic renal cysts suggested - similar appearing. Similar-appearing left adrenal nodular hyperplasia and/or small incidental adenoma OTHER FINDINGS: None. IMPRESSION: Left lower lobe posterior segmental consolidation consistent with an infiltrate with left pleural thickening. Small minimal concomitant left pleural effusion possible. Emphysematous changes Left upper lobe 5 to 6 mm solid nodule as detailed above similar to the 03/07/2016 study. Continued surveillance recommended . Consider follow-up CT chest in 12 months. . Right parapelvic cysts and left adrenal hyperplasia and or small benign adenoma -most likely -both similar-appearing
--- NOTE | 2016-12-29 14:41 | NM ---
PROCEDURE: Whole Body Bone Scan HISTORY: bladder masses with possible bone pathology on ct COMPARISON: December 28, 2016. CT scan abdomen and pelvis. Summary of findings on the comparison examination: Small sclerotic bone lesion left ischial tuberosity. Tiny sclerotic lesion right iliac bone. TECHNIQUE: Following administration of 24.2 miCu of Tc MDP multiplanar whole body images were obtained. FINDINGS: Evidence for bony metastatic disease: Focal increased uptake right antro lateral 7th rib. Degenerative uptake: None. Physiologic uptake: Normal physiologic activity in the kidneys. Other findings: Increased uptake L3 vertebral body corresponds to endplate sclerosis associated with loss of height of the vertebral body. Likely the sequela of remote trauma. IMPRESSION: Indeterminate finding anterior right 7th rib. No additional suspicious abnormalities. Particular attention directed to the osseous structures of the pelvis and visualized thoracolumbar spine and sacrum.
[2016-12-29] MEDS: Moxifloxacin IV 400mg/250ml NS 250 ML IVPB SCH (16:59)
[2016-12-30] MEDS: Promethazine/Cod 6.25mg-10mg/5ml Syr UD PO PRN ×2 (00:55→23:48)
[2016-12-30] MEDS: Albuterol-Ipratrop 3 mg / 0.5 (3 ml) UD INH SCH ×4 (01:19→19:28)
[2016-12-30 06:28] LABS: BASO % 0.1 % (0.0-2.0); LYMPH # 0.5 K/uL (1.0-4.3); MEAN CELL VOLUME 72.1 fL (81.0-99.0); MEAN CORPUSCULAR HEMOGLOBIN 22.4 pg (27.0-31.0); MEAN CORPUSCULAR HGB CONC 31.1 g/dL (33.0-37.0); MEAN PLATELET VOLUME 8.8 fL (7.2-11.7); MONO # 0.2 K/uL (0.0-0.8); MONO % 1.4 % (0.0-10.0); PLATELET COUNT 248 K/uL (130-400); RED CELL DISTRIBUTION WIDTH 17.7 % (11.5-14.5); WHITE BLOOD COUNT 13.1 K/uL (4.8-10.8)
[2016-12-30 06:50] LABS: CHLORIDE 108 mmol/L (98-107)
[2016-12-30 06:51] LABS: POTASSIUM 3.6 mmol/L (3.6-5.2); SODIUM 141 mmol/L (132-148)
[2016-12-30 06:53] LABS: BILIRUBIN,TOTAL < 0.1 mg/dL (0.2-1.3); GFR AFRICAN-AMERICAN 44
[2016-12-30 06:54] LABS: ALB/GLOB RATIO 1.4 (1.0-2.1); ALKALINE PHOSPHATASE 53 U/L (38-126); ALT/SGPT 12 U/L (9-52); AST/SGOT 17 U/L (14-36); BLOOD UREA NITROGEN 41 mg/dL (7-17); CALCIUM 8.1 mg/dl (8.6-10.4); CARBON DIOXIDE 20 mmol/L (22-30); GLUCOSE,RANDOM 206 mg/dL (65-105); MAGNESIUM 1.9 mg/dL (1.6-2.3); TOTAL PROTEIN 6.5 g/dL (6.3-8.3)
[2016-12-30] MEDS: (Novolog) Insulin Aspart, Recombinant 100 u/ml 10 ml vial SC SCH ×4 (08:28→21:21)
[2016-12-30] MEDS: MethylPREDNISolone 40 mg Vial IVP SCH ×3 (08:29→23:48)
[2016-12-30 08:46] LABS: LARGE PLATELETS PRESENT; NEUTROPHIL 92 % (50-75); TOTAL CELLS COUNTED 100
[2016-12-30] MEDS: Verapamil 240 mg ER Tab PO SCH (10:01)
[2016-12-30] MEDS: guaiFENesin 600 mg ER Tab PO SCH ×2 (10:02→17:45)
--- NOTE | 2016-12-30 11:28 | PN ---
DATE: 12/30/2016 TIME OF FOLLOWUP: Roughly 11 a.m. The patient is currently still being treated for her asthma and she still has some wheezing at this time, and she feels a little bit better, but not completely better at this time since her admission for shortness of breath. The patient had a bone scan done for an incidental finding in the 7th rib and this case was discussed with Dr. Harrell, radiology, and he thinks there is less than a 50% chance of this being metastatic disease from bladder cancer at this time. A chest CT done also one 12/29/2016, which is the same date as the bone scan, showed left lower lobe posterior segmental atelectasis, contiguous pleural thickening and possible minimal left pleural effusion and bilateral patchy centrilobular emphysematous changes. There is also a left upper lobe 5- 6 mm solid nodule, similar to the 03/07/2016 study and continued surveillance recommended and recommending a followup CT of the chest in 12 months. DIAGNOSTIC IMPRESSION: 1. Microscopic hematuria. 2. Right worsening hydroureteronephrosis, secondary to obstruction at the right ureterovesical junction from a 4.2 cm bladder mass. The patient also has an additional bladder mass on the left side. PLAN: For this patient at this time is to schedule the patient for a cystoscopy with bladder biopsy as soon as the patient becomes stable regarding her pulmonary pathology. Jesus Brock MD cc: [id number] TT: 12/30/2016 11:28:25 Confirmation # [id number] Dictation # [id number] [id number]
--- NOTE | 2016-12-30 11:46 | CON ---
DATE: 12/28/2016 Re-dictating a urologic consultation originally dictated on 12/28/2016 at 7:52 p.m. secondary to both a computer malfunction and dictation malfunction occurring both at the same time. BRIEF HISTORY: This patient is a 76-year-old female from the [place] who originally presented in 06/2016 and was found to have a bladder mass at that time and was originally seen by Dr. Otilia Jr. and was supposed to follow up with Dr. Bingham for treatment and she did not follow up with Dr. Bingham. She now presents to [facility] Emergency Room with difficulty breathing and shortness of breath with a history of asthma and was currently admitted for this treatment. She also complains of some left-sided abdominal discomfort and a renal ultrasound was ordered, which showed severe right hydronephrosis secondary to an enlarging bladder mass, compared with x- ray studies done in 06/2016 during her previous admission. This was done on and a followup CT done on 12/28/2016 shows a 4.2 cm right-sided bladder mass blocking the right ureter at the ureterovesical junction. She also has a new left-sided bladder mass measuring 1.1 cm since her last x-rays and the right -sided bladder mass is enlarged compared to the previous study in 06/2016. PAST SOCIAL HISTORY: Includes cigarette smoking as a teenager, but stopped smoking many, many years ago. She has no history of any alcohol use. ALLERGIES: She denies any allergies, especially to medications. PAST SURGICAL HISTORY: At this time is none. PHYSICAL EXAMINATION: GENERAL: She is a well-developed, well-nourished, female. HEENT: Grossly within normal limits. NECK: Supple. Thyroid was not palpable. ABDOMEN: Soft, not distended or tender in the right side or upper abdomen. However, she did have some left lower quadrant tenderness. She has no CVA tenderness and no suprapubic tenderness. It is difficult to find her admission laboratory evaluation at this time. However, her vital signs have remained very stable during this admission. She has remained relatively afebrile. Her pulse rate has been very stable and her blood pressure has been relatively stable. Also, her respiratory rate has been relatively stable and her O2 sat also has remained relatively stable. DIAGNOSTIC IMPRESSION: For this patient: 1. Microscopic hematuria. 2. Worsening right hydronephrosis down to the right ureterovesical junction, secondary to most likely obstruction from an enlarging right bladder mass encroaching on the right ureterovesical junction, which is now 4.2 cm, and also a new bladder mass measuring 1.1 cm on the left bladder wall. PLAN: For this patient will be to schedule the patient for cystoscopy as soon as the patient becomes stable regarding her pulmonary pathology. Jesus Brock MD cc: [id number] TT: 12/30/2016 11:45:53 Confirmation # [id number] Dictation # [id number] en MTDD
--- NOTE | 2016-12-30 13:45 | CP.PCM.CON ---
History of Present Illness - History of Present Illness History of Present Illness: Reason for consultation: Shortness of breath/COPD exacerbation 76 year old female with past medical history of DM, HTN, osteoporosis, copd and shingles presenting with worsening shortness of breath and a cough for two days. She also reported a cough productive of yellow colored phlegm. Patient was also complaining of body aches and pains in her legs bilaterally and in her lower back towards her left side. Patient denies ever being intubated. She was last seen and admitted at in September 2016 for similar complaints and was treated with IV steroids and nebulizers and had a negative septic workup and discharged on PO antibiotics and a medrol dose back and continued on her home medications. Review of Systems - Review of Systems All systems: reviewed and no additional remarkable complaints except (Shortness of breath and cough) Past Patient History - Infectious Disease Hx of Infectious Diseases: None - Past Medical History & Family History Past Medical History?: Yes - Past Social History Smoking Status: Former Smoker - CARDIAC Hx Hypertension: Yes - PULMONARY Hx Asthma: Yes - NEUROLOGICAL Hx Neurological Disorder: No - HEENT Hx HEENT Problems: Yes Hx Cataracts: Yes - RENAL Hx Chronic Kidney Disease: Yes Hx Kidney Stones: Yes (3 MONTHS) - ENDOCRINE/METABOLIC Hx Endocrine Disorders: Yes Hx Diabetes Mellitus Type 2: Yes - HEMATOLOGICAL/ONCOLOGICAL Hx Blood Disorders: No - INTEGUMENTARY Hx Dermatological Problems: No - MUSCULOSKELETAL/RHEUMATOLOGICAL Hx Falls: No - GASTROINTESTINAL Hx Gastritis: Yes - GENITOURINARY/GYNECOLOGICAL Hx Genitourinary Disorders: No - PSYCHIATRIC Hx Substance Use: No - SURGICAL HISTORY Hx Surgeries: Yes Hx Section: Yes - ANESTHESIA Hx Anesthesia: Yes Hx Anesthesia Reactions: No Hx Malignant Hyperthermia: No Meds Allergies/Adverse Reactions: Allergies Allergy/AdvReac Type Severity Reaction Status Date / Time No Known Allergies Allergy Verified 12/27/16 13:38 - Medications Medications: Current Medications Acetaminophen (Tylenol 325mg Tab) 650 mg PO Q6 PRN PRN Reason: Pain, moderate (4-7) Last Admin: 12/27/16 22:19 Dose: 650 mg Albuterol/Ipratropium (Duoneb 3 Mg/0.5 Mg (3 Ml) Ud) 3 ml INH RQ6 [facility] Last Admin: 12/30/16 13:39 Dose: 3 ml Calcium/Vitamin D (Oscal-D 250 Mg-125 Units Tab) 1 tab PO ONCE ONE Stop: 12/31/16 11:06 Gabapentin (Neurontin) 100 mg PO BID [facility] Last Admin: 12/30/16 10:01 Dose: 100 mg Guaifenesin (Mucinex La) 600 mg PO BID [facility] Last Admin: 12/30/16 10:02 Dose: 600 mg Heparin Sodium (Porcine) (Heparin) 5,000 units SC Q12 [facility] Last Admin: 12/30/16 10:02 Dose: 5,000 units Hydrochlorothiazide (Hydrodiuril) 25 mg PO DAILY [facility] Last Admin: 12/30/16 10:02 Dose: 25 mg Moxifloxacin HCl (Avelox Iv 400mg/250ml Ns) 250 mls @ 167 mls/hr IVPB Q24H [facility] Last Admin: 12/29/16 16:59 Dose: 167 mls/hr Insulin Aspart (Novolog) 0 unit SC ACHS [facility] PRN Reason: Protocol Last Admin: 12/30/16 12:27 Dose: 2 unit Methylprednisolone (Solu-Medrol) 40 mg IVP Q8H [facility] Last Admin: 12/30/16 08:29 Dose: 40 mg Montelukast Sodium (Singulair) 10 mg PO HS [facility] Last Admin: 12/29/16 21:14 Dose: 10 mg Pantoprazole Sodium (Protonix Inj) 40 mg IVP DAILY [facility] Last Admin: 12/30/16 10:01 Dose: 40 mg Promethazine HCl/Codeine (Phenergan/Codeine Oral Syrup) 5 ml PO Q6H PRN PRN Reason: Cough Last Admin: 12/30/16 00:55 Dose: 5 ml Verapamil HCl (Calan Sr Tab) 240 mg PO DAILY [facility] Last Admin: 12/30/16 10:01 Dose: 240 mg Physical Exam - Constitutional Appears: No Acute Distress - Head Exam Head Exam: ATRAUMATIC, NORMOCEPHALIC - Eye Exam Eye Exam: Normal appearance - ENT Exam ENT Exam: Mucous Membranes Moist - Neck Exam Neck exam: Positive for: Normal Inspection - Respiratory Exam Respiratory Exam: Decreased Breath Sounds - Cardiovascular Exam Cardiovascular Exam: REGULAR RHYTHM - GI/Abdominal Exam GI & Abdominal Exam: Normal Bowel Sounds - Extremities Exam Extremities exam: Positive for: normal inspection - Neurological Exam Neurological exam: Alert, Oriented x3 Results - Vital Signs Recent Vital Signs: Last Vital Signs Temp 98.5 F 12/30/16 07:00 Pulse 104 H 12/30/16 07:55 Resp 18 12/30/16 07:00 BP 163/72 H 12/30/16 07:00 Pulse Ox 96 12/30/16 07:00 - Labs Result Diagrams: 12/30/16 06:18 12/30/16 06:18 Labs: Laboratory Results - last 24 hr 12/28/16 12/29/16 12/29/16 04:20 17:05 21:55 WBC RBC Hgb Hct MCV MCH MCHC RDW Plt Count MPV Neut % (Auto) Lymph % (Auto) [place] % (Auto) Eos % (Auto) Baso % (Auto) Neut # Lymph # [place] # Eos # Baso # Neutrophils % (Manual) Band Neutrophils % Lymphocytes % (Manual) Monocytes % (Manual) Platelet Estimate Large Platelets Hypochromasia (manual) Poikilocytosis (manual Anisocytosis (manual) Target Cells Sodium Potassium Chloride Carbon Dioxide Anion Gap BUN Creatinine Est GFR ( Amer) Est GFR (Non-Af Amer) POC Glucose (mg/dL) 190 H 319 H Random Glucose Calcium Magnesium Total Bilirubin AST ALT Alkaline Phosphatase Total Protein Albumin Globulin Albumin/Globulin Ratio Mycoplasma pneumon IgG 1.19 H 12/30/16 12/30/16 12/30/16 06:18 06:18 06:18 WBC 13.1 H RBC 3.60 L Hgb 8.1 L Hct 26.0 L MCV 72.1 L MCH 22.4 L MCHC 31.1 L RDW 17.7 H Plt Count 248 MPV 8.8 Neut % (Auto) 94.5 H Lymph % (Auto) 4.0 L [place] % (Auto) 1.4 Eos % (Auto) 0.0 Baso % (Auto) 0.1 Neut # 12.4 H Lymph # 0.5 L [place] # 0.2 Eos # 0.0 Baso # 0.0 Neutrophils % (Manual) 92 H Band Neutrophils % 2 Lymphocytes % (Manual) 5 L Monocytes % (Manual) 1 Platelet Estimate Normal Large Platelets Present Hypochromasia (manual) Slight Poikilocytosis (manual Slight Anisocytosis (manual) Slight Target Cells Slight Sodium 141 Potassium 3.6 Chloride 108 H Carbon Dioxide 20 L Anion Gap 17 BUN 41 H Creatinine 1.4 H Est GFR ( Amer) 44 Est GFR (Non-Af Amer) 37 POC Glucose (mg/dL) 241 H Random Glucose 206 H Calcium 8.1 L Magnesium 1.9 Total Bilirubin < 0.1 L AST 17 ALT 12 Alkaline Phosphatase 53 Total Protein 6.5 Albumin 3.8 Globulin 2.7 Albumin/Globulin Ratio 1.4 Mycoplasma pneumon IgG 12/30/16 11:35 WBC RBC Hgb Hct MCV MCH MCHC RDW Plt Count MPV Neut % (Auto) Lymph % (Auto) [place] % (Auto) Eos % (Auto) Baso % (Auto) Neut # Lymph # [place] # Eos # Baso # Neutrophils % (Manual) Band Neutrophils % Lymphocytes % (Manual) Monocytes % (Manual) Platelet Estimate Large Platelets Hypochromasia (manual) Poikilocytosis (manual Anisocytosis (manual) Target Cells Sodium Potassium Chloride Carbon Dioxide Anion Gap BUN Creatinine Est GFR ( Amer) Est GFR (Non-Af Amer) POC Glucose (mg/dL) 171 H Random Glucose Calcium Magnesium Total Bilirubin AST ALT Alkaline Phosphatase Total Protein Albumin Globulin Albumin/Globulin Ratio Mycoplasma pneumon IgG Assessment & Plan (1) COPD exacerbation Status: Acute Comment: Continue IV steroids, nebulizer treatment and antibiotics. Repeat CAT scan of the chest showed no change in size of lung nodule but consistent with small lung infiltrate (2) Lung nodule, solitary Status: Acute
--- NOTE | 2016-12-30 16:18 | CP.PCM.PN ---
<Phill Ruiz - Last Filed: 12/30/16 17:21> Subjective - Date & Time of Evaluation Date of Evaluation: 12/30/16 Time of Evaluation: 07:20 - Subjective Subjective: 76 year old female with past medical history of DM, HTN, osteoporosis, asthma and shingles presenting with worsening shortness of breath and productive cough for two days. Overnight, she complained of increasing abdominal pain and left leg pain, which she stated was constant and 2/10. She is currently waiting to be evaluated by pulmonology before undergoing a cystoscopy to assess the bladder tumors. She denies headache, fever, chills, chest pain and difficulty breathing. Objective - Vital Signs/Intake and Output Vital Signs (last 24 hours): Temp Pulse Resp BP Pulse Ox 98.2 F 84 20 162/65 H 95 12/30/16 15:28 12/30/16 15:28 12/30/16 15:28 12/30/16 15:28 12/30/16 15:28 Intake and Output: 12/30/16 12/30/16 06:59 18:59 Intake Total 350 Balance 350 - Medications Medications: Current Medications Acetaminophen (Tylenol 325mg Tab) 650 mg PO Q6 PRN PRN Reason: Pain, moderate (4-7) Last Admin: 12/27/16 22:19 Dose: 650 mg Albuterol/Ipratropium (Duoneb 3 Mg/0.5 Mg (3 Ml) Ud) 3 ml INH RQ6 [facility] Last Admin: 12/30/16 13:39 Dose: 3 ml Calcium/Vitamin D (Oscal-D 250 Mg-125 Units Tab) 1 tab PO ONCE ONE Stop: 12/31/16 11:06 Gabapentin (Neurontin) 100 mg PO BID [facility] Last Admin: 12/30/16 10:01 Dose: 100 mg Guaifenesin (Mucinex La) 600 mg PO BID [facility] Last Admin: 12/30/16 10:02 Dose: 600 mg Heparin Sodium (Porcine) (Heparin) 5,000 units SC Q12 [facility] Last Admin: 12/30/16 10:02 Dose: 5,000 units Hydrochlorothiazide (Hydrodiuril) 25 mg PO DAILY [facility] Last Admin: 12/30/16 10:02 Dose: 25 mg Moxifloxacin HCl (Avelox Iv 400mg/250ml Ns) 250 mls @ 167 mls/hr IVPB Q24H [facility] Last Admin: 12/29/16 16:59 Dose: 167 mls/hr Insulin Aspart (Novolog) 0 unit SC ACHS [facility] PRN Reason: Protocol Last Admin: 12/30/16 12:27 Dose: 2 unit Methylprednisolone (Solu-Medrol) 40 mg IVP Q8H [facility] Last Admin: 12/30/16 08:29 Dose: 40 mg Montelukast Sodium (Singulair) 10 mg PO HS [facility] Last Admin: 12/29/16 21:14 Dose: 10 mg Pantoprazole Sodium (Protonix Inj) 40 mg IVP DAILY [facility] Last Admin: 12/30/16 10:01 Dose: 40 mg Promethazine HCl/Codeine (Phenergan/Codeine Oral Syrup) 5 ml PO Q6H PRN PRN Reason: Cough Last Admin: 12/30/16 00:55 Dose: 5 ml Verapamil HCl (Calan Sr Tab) 240 mg PO DAILY [facility] Last Admin: 12/30/16 10:01 Dose: 240 mg - Labs Labs: 12/30/16 06:18 12/30/16 06:18 PT 11.5 SECONDS (9.7-12.2) 12/27/16 14:02 INR 1.0 12/27/16 14:02 APTT 26 SECONDS (21-34) 12/27/16 14:02 - Constitutional Appears: No Acute Distress - Head Exam Head Exam: ATRAUMATIC, NORMOCEPHALIC - Eye Exam Eye Exam: EOMI - ENT Exam ENT Exam: Mucous Membranes Moist - Neck Exam Neck Exam: Full ROM, Normal Inspection. absent: Lymphadenopathy - Respiratory Exam Respiratory Exam: Wheezes (decreased from previous day), NORMAL BREATHING PATTERN - Cardiovascular Exam Cardiovascular Exam: REGULAR RHYTHM, +S1, +S2. absent: JVD - GI/Abdominal Exam GI & Abdominal Exam: Soft, Tenderness, Normal Bowel Sounds - Extremities Exam Extremities Exam: absent: Joint Swelling, Pedal Edema - Back Exam Back Exam: absent: paraspinal tenderness, rash noted - Neurological Exam Neurological Exam: Alert, Awake, Oriented x3 - Psychiatric Exam Psychiatric exam: Normal Affect, Normal Mood - Skin Skin Exam: Dry, Intact, Normal Color, Warm Assessment and Plan - Assessment and Plan (Free Text) Plan: (1) Asthma Exacerbation * In the ED, given Duonebs and Solumedrol 125mg IV X1, IV mag sulfate, terbutaline SC and placed on BiPAP * Solumedrol 40mg IV [id number] * Duoneb 3ml q6h restarted due to episode of difficulty breathing overnight * Peak flow: 40 * Singular 10mg PO HS * Phenergan with codeine for cough 5ml PO Q6H PRN * Mucinex 600mg PO BID * 12/27 CXR shows hyperinflation with centrilobular emphysematous changes in upper lobe - please see full report * 12/28 CXR shows possible small right-sided effusion, developing hazy opacities in the lung bases - please see full report * 12/29 CT Chest please see full report -left pleural effusion possible -emphysetmatous changes -left upper lobe 5-6mm nodule similar to 06/21 study - consider f/u CT in 12 months -right parapelvic cysts and left adrenal hyperplasia and/or small benign adenoma * Blood Culture - No growth after 48 hours * Urine Culture - no growth * d-dimer negative * Strep pneumonaie pending * Legionella ordered * Influenza AB negative * Mycoplasma IgM 309 normal * Mycoplasma IgG 1.19 high * Procalcitonin has been collected * Avelox IVPB Q24 for pneumonia coverage * Pulm consult - Dr. Almazan (2) Chronic Anemia * monitor H/H * dropped to 8.0 asymptomatic * Fe studies from Jun 2016 show Fe def and low Fe Saturation, with low normal ferritin * Fe study shows Fe def with low Fe sat @ 7.8 and normal TIBC * also possibly 2/2 to hydronephrosis * started on Ferrous Sulfate 325 tab daily (3) Diabetes mellitus * held metformin 500mg BID * ISS High Dose/Accuchecks ACHS * Gabapentin 100mg PO BID * HgbA1c 7.1 * Moderate consistent carb diet (4) Hypertension * verapamil 240mg po daily * HCTZ 25mg PO daily * hold SBP < 100, HR <60 (5) Post herpetic neuralgia * History of shingles * hold tramadol 50mg PO Q6hprn (6) Lung nodule, solitary * Patient with history on imaging CT chest noted for 3.5 nodule * Monitor (7) Unspecified bladder mass * Patient did not follow up with urology for cystoscopy * UA - postive for protein, RBCs, WBCs * Renal U/S - please see full report - severe hydronephrosis(worse from 06/21), of the right renal collecting system with echogenic debris - bladder mass has increased in size from previous - recommend cystoscopy - BL echogenic cortex suggestive of renal parenchymal disease * Abd/Pel CT PO Contrast only - please see full report -findings suspicious for BL bladder masses -larger mass causing right hydroureteronephrosis * consult Urology - Dr. Brock - Cytology - Bone Scan Whole Body - please see full report -Indeterminate finding anterior right 7th rib - possible cystoscopy tomorrow after evaluation from Pul (8) Prophylactic measure SCDs protonix 40mg IV daily heparin 5000 units [id number] Heart healthy moderate consistent carb diet <Lex Herrmann - Last Filed: 12/30/16 18:29> Objective - Vital Signs/Intake and Output Vital Signs (last 24 hours): Temp Pulse Resp BP Pulse Ox 98.2 F 92 H 20 162/65 H 95 12/30/16 15:28 12/30/16 15:55 12/30/16 15:28 12/30/16 15:28 12/30/16 15:28 Intake and Output: 12/30/16 12/30/16 06:59 18:59 Intake Total 350 Balance 350 - Medications Medications: Current Medications Acetaminophen (Tylenol 325mg Tab) 650 mg PO Q6 PRN PRN Reason: Pain, moderate (4-7) Last Admin: 12/27/16 22:19 Dose: 650 mg Albuterol/Ipratropium (Duoneb 3 Mg/0.5 Mg (3 Ml) Ud) 3 ml INH RQ6 [facility] Last Admin: 12/30/16 13:39 Dose: 3 ml Calcium/Vitamin D (Oscal-D 250 Mg-125 Units Tab) 1 tab PO ONCE ONE Stop: 12/31/16 11:06 Ferrous Sulfate (Feosol) 325 mg PO DAILY [facility] Gabapentin (Neurontin) 100 mg PO BID [facility] Last Admin: 12/30/16 17:44 Dose: 100 mg Guaifenesin (Mucinex La) 600 mg PO BID [facility] Last Admin: 12/30/16 17:45 Dose: 600 mg Heparin Sodium (Porcine) (Heparin) 5,000 units SC Q12 [facility] Last Admin: 12/30/16 10:02 Dose: 5,000 units Hydrochlorothiazide (Hydrodiuril) 25 mg PO DAILY [facility] Last Admin: 12/30/16 10:02 Dose: 25 mg Moxifloxacin HCl (Avelox Iv 400mg/250ml Ns) 250 mls @ 167 mls/hr IVPB Q24H [facility] Last Admin: 12/30/16 17:42 Dose: 167 mls/hr Insulin Aspart (Novolog) 0 unit SC ACHS [facility] PRN Reason: Protocol Last Admin: 12/30/16 17:44 Dose: 10 unit Methylprednisolone (Solu-Medrol) 40 mg IVP Q8H [facility] Last Admin: 12/30/16 17:43 Dose: 40 mg Montelukast Sodium (Singulair) 10 mg PO HS [facility] Last Admin: 12/29/16 21:14 Dose: 10 mg Pantoprazole Sodium (Protonix Inj) 40 mg IVP DAILY [facility] Last Admin: 12/30/16 10:01 Dose: 40 mg Promethazine HCl/Codeine (Phenergan/Codeine Oral Syrup) 5 ml PO Q6H PRN PRN Reason: Cough Last Admin: 12/30/16 00:55 Dose: 5 ml Verapamil HCl (Calan Sr Tab) 240 mg PO DAILY [facility] Last Admin: 12/30/16 10:01 Dose: 240 mg - Labs Labs: 12/30/16 06:18 12/30/16 06:18 PT 11.5 SECONDS (9.7-12.2) 12/27/16 14:02 INR 1.0 12/27/16 14:02 APTT 26 SECONDS (21-34) 12/27/16 14:02 Attending/Attestation - Attestation I have personally seen and examined this patient.: Yes I have fully participated in the care of the patient.: Yes I have reviewed all pertinent clinical information, including history, physical exam and plan: Yes Notes (Text): 12/30/16 18:27 Patient was seen and examined at bedside Wheezing is improved. We will continue current management for asthma sex of admission Urology evaluation seen in [facility] for bladder mass Patient will need a cystoscopy once she is cleared by pulmonary I discussed the plan of care with the resident and I agree with the above history and physical and assessment/plan but the resident.
[2016-12-30] MEDS: Moxifloxacin IV 400mg/250ml NS 250 ML IVPB SCH (17:42)
[2016-12-31] MEDS: Albuterol-Ipratrop 3 mg / 0.5 (3 ml) UD INH SCH ×4 (01:40→19:35)
[2016-12-31 06:14] LABS: BASO % 0.1 % (0.0-2.0); HEMATOCRIT 26.5 % (34.0-47.0); LYMPH # 0.9 K/uL (1.0-4.3); LYMPH % 10.9 % (20.0-40.0); MEAN CELL VOLUME 71.4 fL (81.0-99.0); MEAN CORPUSCULAR HEMOGLOBIN 22.7 pg (27.0-31.0); MEAN CORPUSCULAR HGB CONC 31.8 g/dL (33.0-37.0); MEAN PLATELET VOLUME 8.5 fL (7.2-11.7); MONO # 0.2 K/uL (0.0-0.8); MONO % 2.9 % (0.0-10.0); RED CELL DISTRIBUTION WIDTH 17.5 % (11.5-14.5); WHITE BLOOD COUNT 8.4 K/uL (4.8-10.8)
[2016-12-31 07:29] LABS: POTASSIUM 3.2 mmol/L (3.6-5.2)
[2016-12-31 07:31] LABS: BILIRUBIN,TOTAL 0.5 mg/dL (0.2-1.3)
[2016-12-31 07:32] LABS: ALB/GLOB RATIO 1.4 (1.0-2.1); TOTAL PROTEIN 6.5 g/dL (6.3-8.3)
[2016-12-31 07:33] LABS: CALCIUM 8.2 mg/dl (8.6-10.4)
[2016-12-31] MEDS: (Novolog) Insulin Aspart, Recombinant 100 u/ml 10 ml vial SC SCH ×4 (08:40→21:23)
[2016-12-31] MEDS: MethylPREDNISolone 40 mg Vial IVP SCH ×3 (09:05→23:58)
[2016-12-31] MEDS: Verapamil 240 mg ER Tab PO SCH (09:42)
--- NOTE | 2016-12-31 10:51 | CP.PCM.PN ---
Subjective - Date & Time of Evaluation Date of Evaluation: 12/31/16 Objective - Vital Signs/Intake and Output Vital Signs (last 24 hours): Temp Pulse Resp BP Pulse Ox 98.3 F 116 H 20 177/75 H 96 12/31/16 07:00 12/31/16 09:00 12/31/16 07:00 12/31/16 07:00 12/31/16 07:00 Intake and Output: 12/31/16 12/31/16 06:59 18:59 Intake Total 10 Balance 10 - Medications Medications: Current Medications Acetaminophen (Tylenol 325mg Tab) 650 mg PO Q6 PRN PRN Reason: Pain, moderate (4-7) Last Admin: 12/27/16 22:19 Dose: 650 mg Albuterol/Ipratropium (Duoneb 3 Mg/0.5 Mg (3 Ml) Ud) 3 ml INH RQ6 [facility] Last Admin: 12/31/16 09:20 Dose: 3 ml Calcium/Vitamin D (Oscal-D 250 Mg-125 Units Tab) 1 tab PO ONCE ONE Stop: 12/31/16 11:06 Ferrous Sulfate (Feosol) 325 mg PO DAILY [facility] Last Admin: 12/31/16 09:41 Dose: 325 mg Gabapentin (Neurontin) 100 mg PO BID [facility] Last Admin: 12/31/16 09:41 Dose: 100 mg Guaifenesin (Mucinex La) 600 mg PO BID [facility] Last Admin: 12/30/16 17:45 Dose: 600 mg Hydrochlorothiazide (Hydrodiuril) 25 mg PO DAILY [facility] Last Admin: 12/31/16 09:41 Dose: 25 mg Moxifloxacin HCl (Avelox Iv 400mg/250ml Ns) 250 mls @ 167 mls/hr IVPB Q24H [facility] Last Admin: 12/30/16 17:42 Dose: 167 mls/hr Insulin Aspart (Novolog) 0 unit SC ACHS [facility] PRN Reason: Protocol Last Admin: 12/31/16 08:40 Dose: 4 unit Methylprednisolone (Solu-Medrol) 40 mg IVP Q8H [facility] Last Admin: 12/31/16 09:05 Dose: 40 mg Montelukast Sodium (Singulair) 10 mg PO HS [facility] Last Admin: 12/30/16 21:18 Dose: 10 mg Pantoprazole Sodium (Protonix Inj) 40 mg IVP DAILY [facility] Last Admin: 12/31/16 09:40 Dose: 40 mg Promethazine HCl/Codeine (Phenergan/Codeine Oral Syrup) 5 ml PO Q6H PRN PRN Reason: Cough Last Admin: 12/30/16 23:48 Dose: 5 ml Verapamil HCl (Calan Sr Tab) 240 mg PO DAILY [facility] Last Admin: 12/31/16 09:42 Dose: 240 mg - Labs Labs: 12/31/16 06:08 12/31/16 06:08 PT 11.5 SECONDS (9.7-12.2) 12/27/16 14:02 INR 1.0 12/27/16 14:02 APTT 26 SECONDS (21-34) 12/27/16 14:02 - Constitutional Appears: Non-toxic, No Acute Distress - Head Exam Head Exam: ATRAUMATIC, NORMOCEPHALIC - Eye Exam Eye Exam: EOMI - ENT Exam ENT Exam: Mucous Membranes Moist - Neck Exam Neck Exam: absent: Lymphadenopathy, Thyromegaly - Respiratory Exam Respiratory Exam: Wheezes, NORMAL BREATHING PATTERN - Cardiovascular Exam Cardiovascular Exam: REGULAR RHYTHM, +S1, +S2. absent: JVD - GI/Abdominal Exam GI & Abdominal Exam: Soft, Tenderness, Normal Bowel Sounds - Neurological Exam Neurological Exam: Alert, Awake, Oriented x3 - Psychiatric Exam Psychiatric exam: Normal Affect, Normal Mood - Skin Skin Exam: Dry, Intact, Normal Color, Warm
[2016-12-31] MEDS ORDERED: Calcium-Vit D 250 mg-125 Units Tab UD PO ONE (11:05)
--- NOTE | 2016-12-31 11:15 | CP.PCM.PN ---
Subjective - Date & Time of Evaluation Date of Evaluation: 12/31/16 Time of Evaluation: 09:00 - Subjective Subjective: Patient seen and examined. Sitting comfortably in no acute distress but complaining of dyspnea on exertion and wheezing and coughing Afebrile with no chest pain Objective - Vital Signs/Intake and Output Vital Signs (last 24 hours): Temp Pulse Resp BP Pulse Ox 98.3 F 116 H 20 177/75 H 96 12/31/16 07:00 12/31/16 09:00 12/31/16 07:00 12/31/16 07:00 12/31/16 07:00 Intake and Output: 12/31/16 12/31/16 06:59 18:59 Intake Total 10 Balance 10 - Medications Medications: Current Medications Acetaminophen (Tylenol 325mg Tab) 650 mg PO Q6 PRN PRN Reason: Pain, moderate (4-7) Last Admin: 12/27/16 22:19 Dose: 650 mg Albuterol/Ipratropium (Duoneb 3 Mg/0.5 Mg (3 Ml) Ud) 3 ml INH RQ6 [facility] Last Admin: 12/31/16 09:20 Dose: 3 ml Ferrous Sulfate (Feosol) 325 mg PO DAILY [facility] Last Admin: 12/31/16 09:41 Dose: 325 mg Gabapentin (Neurontin) 100 mg PO BID [facility] Last Admin: 12/31/16 09:41 Dose: 100 mg Guaifenesin (Mucinex La) 600 mg PO BID [facility] Last Admin: 12/30/16 17:45 Dose: 600 mg Hydrochlorothiazide (Hydrodiuril) 25 mg PO DAILY [facility] Last Admin: 12/31/16 09:41 Dose: 25 mg Moxifloxacin HCl (Avelox Iv 400mg/250ml Ns) 250 mls @ 167 mls/hr IVPB Q24H [facility] Last Admin: 12/30/16 17:42 Dose: 167 mls/hr Insulin Aspart (Novolog) 0 unit SC ACHS [facility] PRN Reason: Protocol Last Admin: 12/31/16 08:40 Dose: 4 unit Methylprednisolone (Solu-Medrol) 40 mg IVP Q8H [facility] Last Admin: 12/31/16 09:05 Dose: 40 mg Montelukast Sodium (Singulair) 10 mg PO HS [facility] Last Admin: 12/30/16 21:18 Dose: 10 mg Pantoprazole Sodium (Protonix Inj) 40 mg IVP DAILY [facility] Last Admin: 12/31/16 09:40 Dose: 40 mg Promethazine HCl/Codeine (Phenergan/Codeine Oral Syrup) 5 ml PO Q6H PRN PRN Reason: Cough Last Admin: 12/30/16 23:48 Dose: 5 ml Verapamil HCl (Calan Sr Tab) 240 mg PO DAILY [facility] Last Admin: 12/31/16 09:42 Dose: 240 mg - Labs Labs: 12/31/16 06:08 12/31/16 06:08 PT 11.5 SECONDS (9.7-12.2) 12/27/16 14:02 INR 1.0 12/27/16 14:02 APTT 26 SECONDS (21-34) 12/27/16 14:02 - Head Exam Head Exam: ATRAUMATIC, NORMOCEPHALIC - Eye Exam Eye Exam: Normal appearance - ENT Exam ENT Exam: Mucous Membranes Moist - Neck Exam Neck Exam: Normal Inspection - Respiratory Exam Respiratory Exam: Rhonchi, Wheezes - Cardiovascular Exam Cardiovascular Exam: REGULAR RHYTHM - GI/Abdominal Exam GI & Abdominal Exam: Soft, Normal Bowel Sounds - Neurological Exam Neurological Exam: Alert, Oriented x3 Assessment and Plan (1) COPD exacerbation Assessment & Plan: Patient condition improving but still wheezing with some shortness of breath Continue IV steroids and nebulizer treatment and Spiriva ABG room air Not cleared for cystoscopy as patient still symptomatic Status: Acute (2) Lung nodule, solitary Status: Acute
[2016-12-31 11:18] LABS: ABG ALLEN TEST A; ARTERIAL BLOOD HGB O2 SAT 96.6 % (95.0-98.0); CARBOXYHEMOGLOBIN 1.9 % (0.5-1.5); DRAW SITE RRA; HHB 0.5 % (0.0-5.0); METHEMOGLOBIN 0.9 % (0.0-3.0)
[2016-12-31] MEDS: guaiFENesin 600 mg ER Tab PO SCH ×2 (12:05→17:07)
[2016-12-31] MEDS ORDERED: Potassium Chloride 20 mEq ER Tab PO STA (13:06)
[2016-12-31] MEDS ORDERED: POLYETHYLENE GLYCOL 3350 17 GM/Dose PACKET PO ONE (14:00)
--- NOTE | 2016-12-31 16:01 | CP.PCM.PN ---
<Phill Ruiz - Last Filed: 12/31/16 19:12> Subjective - Date & Time of Evaluation Date of Evaluation: 12/31/16 Time of Evaluation: 07:10 - Subjective Subjective: Patient is seen and examined. Patient reports difficulty sleeping overnight. Patient insomnia is unresolved, and reports overnight benadryl did not help. Patient reports SOB is still present but improved from on admission. Patient complains of constipation with assoc. abdominal pain. Patient also admits to cough. Patient denies fever, chills, MONTANO, chest pain, palpitations, nausea, vomiting, numbness, and tingling. Objective - Vital Signs/Intake and Output Vital Signs (last 24 hours): Temp Pulse Resp BP Pulse Ox 98.3 F 116 H 20 177/75 H 96 12/31/16 07:00 12/31/16 09:00 12/31/16 07:00 12/31/16 07:00 12/31/16 07:00 Intake and Output: 12/31/16 12/31/16 06:59 18:59 Intake Total 10 Balance 10 - Medications Medications: Current Medications Acetaminophen (Tylenol 325mg Tab) 650 mg PO Q6 PRN PRN Reason: Pain, moderate (4-7) Last Admin: 12/27/16 22:19 Dose: 650 mg Albuterol/Ipratropium (Duoneb 3 Mg/0.5 Mg (3 Ml) Ud) 3 ml INH RQ6 [facility] Last Admin: 12/31/16 13:59 Dose: 3 ml Docusate Sodium (Colace) 100 mg PO BID [facility] Ferrous Sulfate (Feosol) 325 mg PO DAILY [facility] Last Admin: 12/31/16 09:41 Dose: 325 mg Gabapentin (Neurontin) 100 mg PO BID [facility] Last Admin: 12/31/16 09:41 Dose: 100 mg Guaifenesin (Mucinex La) 600 mg PO BID [facility] Last Admin: 12/31/16 12:05 Dose: 600 mg Hydrochlorothiazide (Hydrodiuril) 25 mg PO DAILY [facility] Last Admin: 12/31/16 09:41 Dose: 25 mg Moxifloxacin HCl (Avelox Iv 400mg/250ml Ns) 250 mls @ 167 mls/hr IVPB Q24H [facility] Last Admin: 12/30/16 17:42 Dose: 167 mls/hr Insulin Aspart (Novolog) 0 unit SC ACHS [facility] PRN Reason: Protocol Last Admin: 12/31/16 12:54 Dose: 6 unit Methylprednisolone (Solu-Medrol) 40 mg IVP Q8H [facility] Last Admin: 12/31/16 09:05 Dose: 40 mg Montelukast Sodium (Singulair) 10 mg PO HS [facility] Last Admin: 12/30/16 21:18 Dose: 10 mg Pantoprazole Sodium (Protonix Inj) 40 mg IVP DAILY [facility] Last Admin: 12/31/16 09:40 Dose: 40 mg Promethazine HCl/Codeine (Phenergan/Codeine Oral Syrup) 5 ml PO Q6H PRN PRN Reason: Cough Last Admin: 12/30/16 23:48 Dose: 5 ml Verapamil HCl (Calan Sr Tab) 240 mg PO DAILY [facility] Last Admin: 12/31/16 09:42 Dose: 240 mg Zolpidem Tartrate (Ambien) 5 mg PO HS PRN PRN Reason: Insomnia - Labs Labs: 12/31/16 06:08 12/31/16 06:08 PT 11.5 SECONDS (9.7-12.2) 12/27/16 14:02 INR 1.0 12/27/16 14:02 APTT 26 SECONDS (21-34) 12/27/16 14:02 - Constitutional Appears: Non-toxic, No Acute Distress - Head Exam Head Exam: ATRAUMATIC, NORMOCEPHALIC - Eye Exam Eye Exam: Normal appearance - ENT Exam ENT Exam: Mucous Membranes Moist - Respiratory Exam Respiratory Exam: Rhonchi, Wheezes, NORMAL BREATHING PATTERN - Cardiovascular Exam Cardiovascular Exam: Tachycardia, +S1, +S2. absent: Gallop, Rubs, Murmur - GI/Abdominal Exam GI & Abdominal Exam: Soft, Tenderness, Hypoactive Bowel Sounds - Extremities Exam Extremities Exam: absent: Calf Tenderness, Pedal Edema - Back Exam Back Exam: NORMAL INSPECTION. absent: CVA tenderness (L), CVA tenderness (R) - Neurological Exam Neurological Exam: Alert, Awake, Oriented x3 - Psychiatric Exam Psychiatric exam: Normal Affect, Normal Mood - Skin Skin Exam: Dry, Intact Assessment and Plan - Assessment and Plan (Free Text) Plan: (1) Asthma Exacerbation * In the ED, given Duonebs and Solumedrol 125mg IV X1, IV mag sulfate, terbutaline SC and placed on BiPAP * Solumedrol 40mg IV [id number] * Duoneb 3ml q6h restarted due to episode of difficulty breathing overnight * Peak flow: 40 * Singular 10mg PO HS * Phenergan with codeine for cough 5ml PO Q6H PRN * Mucinex 600mg PO BID * 12/27 CXR shows hyperinflation with centrilobular emphysematous changes in upper lobe - please see full report * 12/28 CXR shows possible small right-sided effusion, developing hazy opacities in the lung bases - please see full report * 12/29 CT Chest please see full report -left pleural effusion possible -emphysetmatous changes -left upper lobe 5-6mm nodule similar to 06/21 study - consider f/u CT in 12 months -right parapelvic cysts and left adrenal hyperplasia and/or small benign adenoma * Blood Culture - No growth after 3 days * Urine Culture - no growth * d-dimer negative * Strep pneumonaie negative * Legionella ordered * Influenza AB negative * Mycoplasma IgM 309 normal * Mycoplasma IgG 1.19 high * Procalcitonin has been collected * Avelox IVPB Q24 for pneumonia coverage * Pulm consult - Dr. Almazan (2) Chronic Anemia * monitor H/H * dropped to 8.0 asymptomatic * Fe studies from Jun 2016 show Fe def and low Fe Saturation, with low normal ferritin * Fe study shows Fe def with low Fe sat @ 7.8 and normal TIBC * also possibly 2/2 to hydronephrosis * started on Ferrous Sulfate 325 tab daily (3) Diabetes mellitus * held metformin 500mg BID * ISS High Dose/Accuchecks ACHS * Gabapentin 100mg PO BID * HgbA1c 7.1 * Moderate consistent carb diet (4) Hypertension * verapamil 240mg po daily * HCTZ 25mg PO daily * hold SBP < 100, HR <60 (5) Post herpetic neuralgia * History of shingles * hold tramadol 50mg PO Q6hprn (6) Lung nodule, solitary * Patient with history on imaging CT chest noted for 3.5 nodule * Monitor (7) Unspecified bladder mass * Patient did not follow up with urology for cystoscopy * UA - postive for protein, RBCs, WBCs * Renal U/S - please see full report - severe hydronephrosis(worse from 06/21), of the right renal collecting system with echogenic debris - bladder mass has increased in size from previous - recommend cystoscopy - BL echogenic cortex suggestive of renal parenchymal disease * Abd/Pel CT PO Contrast only - please see full report -findings suspicious for BL bladder masses -larger mass causing right hydroureteronephrosis * consult Urology - Dr. Brock - Cytology -Single scattered highly atypical urothelial cells, in the background of squamous cells, mixed inflammatory cells and RBCs - Bone Scan Whole Body - please see full report -Indeterminate finding anterior right 7th rib - cystoscopy pending evaluation from Pulm, per Pulm note not cleared for procedure (8) Insomnia Ambien 5mg (9) Prophylactic measure SCDs protonix 40mg IV daily Heart healthy moderate consistent carb diet <Lex Herrmann - Last Filed: 01/01/17 09:06> Objective - Vital Signs/Intake and Output Vital Signs (last 24 hours): Temp Pulse Resp BP Pulse Ox 98.4 F 89 18 147/81 98 01/01/17 07:00 01/01/17 07:00 01/01/17 07:00 01/01/17 07:00 01/01/17 07:00 Intake and Output: 01/01/17 01/01/17 06:59 18:59 Intake Total 20 Balance 20 - Medications Medications: Current Medications Acetaminophen (Tylenol 325mg Tab) 650 mg PO Q6 PRN PRN Reason: Pain, moderate (4-7) Last Admin: 12/27/16 22:19 Dose: 650 mg Albuterol/Ipratropium (Duoneb 3 Mg/0.5 Mg (3 Ml) Ud) 3 ml INH RQ6 [facility] Last Admin: 01/01/17 08:26 Dose: 3 ml Docusate Sodium (Colace) 100 mg PO BID [facility] Last Admin: 12/31/16 17:07 Dose: 100 mg Ferrous Sulfate (Feosol) 325 mg PO DAILY [facility] Last Admin: 12/31/16 09:41 Dose: 325 mg Gabapentin (Neurontin) 100 mg PO BID [facility] Last Admin: 12/31/16 17:07 Dose: 100 mg Guaifenesin (Mucinex La) 600 mg PO BID [facility] Last Admin: 12/31/16 17:07 Dose: 600 mg Hydrochlorothiazide (Hydrodiuril) 25 mg PO DAILY [facility] Last Admin: 12/31/16 09:41 Dose: 25 mg Insulin Aspart (Novolog) 0 unit SC ACHS [facility] PRN Reason: Protocol Last Admin: 12/31/16 21:23 Dose: Not Given Methylprednisolone (Solu-Medrol) 40 mg IVP Q8H [facility] Last Admin: 01/01/17 08:53 Dose: 40 mg Montelukast Sodium (Singulair) 10 mg PO HS [facility] Last Admin: 12/31/16 21:23 Dose: 10 mg Moxifloxacin HCl (Avelox) 400 mg PO DAILY [facility] Pantoprazole Sodium (Protonix Inj) 40 mg IVP DAILY [facility] Last Admin: 12/31/16 09:40 Dose: 40 mg Promethazine HCl/Codeine (Phenergan/Codeine Oral Syrup) 5 ml PO Q6H PRN PRN Reason: Cough Last Admin: 12/30/16 23:48 Dose: 5 ml Verapamil HCl (Calan Sr Tab) 240 mg PO DAILY [facility] Last Admin: 12/31/16 09:42 Dose: 240 mg Zolpidem Tartrate (Ambien) 5 mg PO HS PRN PRN Reason: Insomnia Last Admin: 12/31/16 23:58 Dose: 5 mg - Labs Labs: 12/31/16 06:08 12/31/16 06:08 PT 11.5 SECONDS (9.7-12.2) 12/27/16 14:02 INR 1.0 12/27/16 14:02 APTT 26 SECONDS (21-34) 12/27/16 14:02 Attending/Attestation - Attestation I have personally seen and examined this patient.: Yes I have fully participated in the care of the patient.: Yes I have reviewed all pertinent clinical information, including history, physical exam and plan: Yes Notes (Text): 01/01/17 09:04 Patient was seen and examined at bedside with the resident Wheezing is present but improved since admission We will continue treatment with IV steroids and nebulizing treatment Pulmonary follow-up seen in appreciated. Patient is not cleared for cystoscopy by pulmonary Bladder mass follow-up as per urology. Patient will need cystoscopy once medically cleared. Patient also complained of constipation and started on bowel regimen. I discussed the plan of care with the resident and agree with the above history and physical and assessment/plan by the resident.
[2016-12-31] MEDS: Moxifloxacin IV 400mg/250ml NS 250 ML IVPB SCH (16:40)
[2016-12-31 18:36] LABS: STREP PNEMONIAE 1 AB IgG 0.9 mcg/mL; STREP PNEMONIAE 12 AB IgG <0.3 mcg/mL; STREP PNEMONIAE 19 AB IgG 0.6 mcg/mL; STREP PNEMONIAE 23 AB IgG <0.3 mcg/mL; STREP PNEMONIAE 26 AB IgG <0.3 mcg/mL; STREP PNEMONIAE 3 AB IgG <0.3 mcg/mL; STREP PNEMONIAE 4 AB IgG <0.3 mcg/mL; STREP PNEMONIAE 5 AB IgG 0.8 mcg/mL; STREP PNEMONIAE 51 AB IgG 3.2 mcg/mL; STREP PNEMONIAE 56 AB IgG 0.3 mcg/mL; STREP PNEMONIAE 68 AB IgG <0.3 mcg/mL; STREP PNEMONIAE 8 AB IgG <0.3 mcg/mL; STREP PNEMONIAE 9 AB IgG 0.4 mcg/mL
[2017-01-01] MEDS: Albuterol-Ipratrop 3 mg / 0.5 (3 ml) UD INH SCH ×4 (01:16→19:04)
[2017-01-01] MEDS: MethylPREDNISolone 40 mg Vial IVP SCH ×2 (08:53→16:23)
[2017-01-01] MEDS: (Novolog) Insulin Aspart, Recombinant 100 u/ml 10 ml vial SC SCH ×4 (09:35→21:24)
[2017-01-01] MEDS: Verapamil 240 mg ER Tab PO SCH (10:45)
[2017-01-01 11:19] LABS: BASO % 0.4 % (0.0-2.0); HEMATOCRIT 27.9 % (34.0-47.0); LYMPH # 0.5 K/uL (1.0-4.3); LYMPH % 7.6 % (20.0-40.0); MEAN CELL VOLUME 71.1 fL (81.0-99.0); MEAN CORPUSCULAR HEMOGLOBIN 22.6 pg (27.0-31.0); MEAN CORPUSCULAR HGB CONC 31.7 g/dL (33.0-37.0); MEAN PLATELET VOLUME 8.6 fL (7.2-11.7); MONO # 0.5 K/uL (0.0-0.8); MONO % 8.4 % (0.0-10.0); NRBC % 0.1 % (0.0-2.0); PLATELET COUNT 242 K/uL (130-400); RED CELL DISTRIBUTION WIDTH 17.7 % (11.5-14.5)
[2017-01-01] MEDS: guaiFENesin 600 mg ER Tab PO SCH ×2 (11:34→18:23)
[2017-01-01 11:45] LABS: POTASSIUM 3.8 mmol/L (3.6-5.2)
[2017-01-01 11:47] LABS: ALB/GLOB RATIO 1.4 (1.0-2.1); BILIRUBIN,TOTAL 0.5 mg/dL (0.2-1.3); TOTAL PROTEIN 6.7 g/dL (6.3-8.3)
[2017-01-01 11:48] LABS: CALCIUM 8.4 mg/dl (8.6-10.4)
[2017-01-01 12:19] LABS: NEUTROPHIL 83 % (50-75); TOTAL CELLS COUNTED 100
--- NOTE | 2017-01-01 14:03 | CP.PCM.PN ---
<RuizPhill - Last Filed: 01/01/17 23:45> Subjective - Date & Time of Evaluation Date of Evaluation: 01/01/17 Time of Evaluation: 08:10 - Subjective Subjective: Patient is seen and examined. Patient reports SOB is still improving with current treatment. Once pt. is no longer wheezes, she can be evaluated again for cystoscopy. Per nusre, patient's insomnia is unresolved and was disoriented overnight. Will give Restoril instead. Also, patient still complains of constipation with assoc. abdominal pain. Patient also admits to mild cough. Patient denies fever, chills, MONTANO, chest pain, palpitations, nausea, vomiting, numbness, and tingling. Objective - Vital Signs/Intake and Output Vital Signs (last 24 hours): Temp Pulse Resp BP Pulse Ox 98.4 F 89 18 147/81 98 01/01/17 07:00 01/01/17 07:00 01/01/17 07:00 01/01/17 07:00 01/01/17 07:00 Intake and Output: 01/01/17 01/01/17 06:59 18:59 Intake Total 20 Balance 20 - Medications Medications: Current Medications Acetaminophen (Tylenol 325mg Tab) 650 mg PO Q6 PRN PRN Reason: Pain, moderate (4-7) Last Admin: 12/27/16 22:19 Dose: 650 mg Albuterol/Ipratropium (Duoneb 3 Mg/0.5 Mg (3 Ml) Ud) 3 ml INH RQ6 [facility] Last Admin: 01/01/17 08:26 Dose: 3 ml Docusate Sodium (Colace) 100 mg PO BID [facility] Last Admin: 01/01/17 10:46 Dose: 100 mg Ferrous Sulfate (Feosol) 325 mg PO DAILY [facility] Last Admin: 01/01/17 10:47 Dose: 325 mg Gabapentin (Neurontin) 100 mg PO BID [facility] Last Admin: 01/01/17 10:43 Dose: 100 mg Guaifenesin (Mucinex La) 600 mg PO BID [facility] Last Admin: 01/01/17 11:34 Dose: 600 mg Hydrochlorothiazide (Hydrodiuril) 25 mg PO DAILY [facility] Last Admin: 01/01/17 10:44 Dose: 25 mg Insulin Aspart (Novolog) 0 unit SC ACHS [facility] PRN Reason: Protocol Last Admin: 01/01/17 12:24 Dose: 8 unit Methylprednisolone (Solu-Medrol) 40 mg IVP Q8H [facility] Last Admin: 01/01/17 08:53 Dose: 40 mg Montelukast Sodium (Singulair) 10 mg PO HS [facility] Last Admin: 12/31/16 21:23 Dose: 10 mg Moxifloxacin HCl (Avelox) 400 mg PO DAILY [facility] Last Admin: 01/01/17 10:46 Dose: 400 mg Pantoprazole Sodium (Protonix Inj) 40 mg IVP DAILY [facility] Last Admin: 01/01/17 09:43 Dose: 40 mg Promethazine HCl/Codeine (Phenergan/Codeine Oral Syrup) 5 ml PO Q6H PRN PRN Reason: Cough Last Admin: 12/30/16 23:48 Dose: 5 ml Verapamil HCl (Calan Sr Tab) 240 mg PO DAILY [facility] Last Admin: 01/01/17 10:45 Dose: 240 mg Zolpidem Tartrate (Ambien) 5 mg PO HS PRN PRN Reason: Insomnia Last Admin: 12/31/16 23:58 Dose: 5 mg - Labs Labs: 01/01/17 11:09 01/01/17 11:09 PT 11.5 SECONDS (9.7-12.2) 12/27/16 14:02 INR 1.0 12/27/16 14:02 APTT 26 SECONDS (21-34) 12/27/16 14:02 - Constitutional Appears: Non-toxic, No Acute Distress - Head Exam Head Exam: ATRAUMATIC, NORMOCEPHALIC - Eye Exam Eye Exam: EOMI - ENT Exam ENT Exam: Mucous Membranes Moist - Respiratory Exam Respiratory Exam: Wheezes, NORMAL BREATHING PATTERN - Cardiovascular Exam Cardiovascular Exam: REGULAR RHYTHM, RRR, +S1, +S2. absent: JVD - GI/Abdominal Exam GI & Abdominal Exam: Soft, Tenderness, Normal Bowel Sounds - Neurological Exam Neurological Exam: Alert, Awake, CN II-XII Intact, Normal Gait, Oriented x3 - Psychiatric Exam Psychiatric exam: Normal Affect, Normal Mood - Skin Skin Exam: Dry, Intact, Normal Color, Warm Assessment and Plan - Assessment and Plan (Free Text) Plan: (1) Asthma Exacerbation * In the ED, given Duonebs and Solumedrol 125mg IV X1, IV mag sulfate, terbutaline SC and placed on BiPAP * Solumedrol 40mg IV [id number] * Duoneb 3ml q6h restarted due to episode of difficulty breathing overnight * Peak flow: 40 * Singular 10mg PO HS * Phenergan with codeine for cough 5ml PO Q6H PRN * Mucinex 600mg PO BID * 12/27 CXR shows hyperinflation with centrilobular emphysematous changes in upper lobe - please see full report * 12/28 CXR shows possible small right-sided effusion, developing hazy opacities in the lung bases - please see full report * 12/29 CT Chest please see full report -left pleural effusion possible -emphysetmatous changes -left upper lobe 5-6mm nodule similar to 06/21 study - consider f/u CT in 12 months -right parapelvic cysts and left adrenal hyperplasia and/or small benign adenoma * Blood Culture - No growth after 4 days * Urine Culture - no growth * d-dimer negative * Strep pneumonaie negative * Legionella ordered * Influenza AB negative * Mycoplasma IgM 309 normal * Mycoplasma IgG 1.19 high * Procalcitonin has been collected * Avelox IVPB Q24 for pneumonia coverage * Pulm consult - Dr. Almazan (2) Chronic Anemia * monitor H/H * increased to 8.9 asymptomatic * Fe studies from Jun 2016 show Fe def and low Fe Saturation, with low normal ferritin * Fe study shows Fe def with low Fe sat @ 7.8 and normal TIBC * also possibly 2/2 to hydronephrosis * started on Ferrous Sulfate 325 tab daily (3) Diabetes mellitus * held metformin 500mg BID * ISS High Dose/Accuchecks ACHS * Gabapentin 100mg PO BID * HgbA1c 7.1 * Moderate consistent carb diet (4) Hypertension * verapamil 240mg po daily * HCTZ 25mg PO daily * hold SBP < 100, HR <60 (5) Post herpetic neuralgia * History of shingles * hold tramadol 50mg PO Q6hprn (6) Lung nodule, solitary * Patient with history on imaging CT chest noted for 3.5 nodule * Monitor (7) Unspecified bladder mass * Patient did not follow up with urology for cystoscopy * UA - postive for protein, RBCs, WBCs * Renal U/S - please see full report - severe hydronephrosis(worse from 06/21), of the right renal collecting system with echogenic debris - bladder mass has increased in size from previous - recommend cystoscopy - BL echogenic cortex suggestive of renal parenchymal disease * Abd/Pel CT PO Contrast only - please see full report -findings suspicious for BL bladder masses -larger mass causing right hydroureteronephrosis * consult Urology - Dr. Brock - Eventually schedule to cystoscopy and biopsy, can do as outpatient - Cytology -Single scattered highly atypical urothelial cells, in the background of squamous cells, mixed inflammatory cells and RBCs - Bone Scan Whole Body - please see full report -Indeterminate finding anterior right 7th rib - cystoscopy pending evaluation from Pulm, per Pulm note not cleared for procedure (8) Insomnia Restoril 15mg (9) Prophylactic measure SCDs protonix 40mg IV daily Heart healthy moderate consistent carb diet <Lex Herrmann - Last Filed: 01/02/17 09:03> Objective - Vital Signs/Intake and Output Vital Signs (last 24 hours): Temp Pulse Resp BP Pulse Ox 98.3 F 20 L 20 161/74 H 97 01/02/17 07:00 01/02/17 07:00 01/02/17 07:00 01/02/17 07:00 01/02/17 07:00 Intake and Output: 01/02/17 01/02/17 06:59 18:59 Intake Total 120 Balance 120 - Medications Medications: Current Medications Acetaminophen (Tylenol 325mg Tab) 650 mg PO Q6 PRN PRN Reason: Pain, moderate (4-7) Last Admin: 01/02/17 04:39 Dose: 650 mg Albuterol/Ipratropium (Duoneb 3 Mg/0.5 Mg (3 Ml) Ud) 3 ml INH RQ6 [facility] Last Admin: 01/02/17 08:35 Dose: 3 ml Docusate Sodium (Colace) 100 mg PO BID [facility] Last Admin: 01/01/17 17:47 Dose: 100 mg Ferrous Sulfate (Feosol) 325 mg PO DAILY [facility] Last Admin: 01/01/17 10:47 Dose: 325 mg Gabapentin (Neurontin) 100 mg PO BID [facility] Last Admin: 01/01/17 17:46 Dose: 100 mg Guaifenesin (Mucinex La) 600 mg PO BID [facility] Last Admin: 01/01/17 18:23 Dose: Not Given Hydrochlorothiazide (Hydrodiuril) 25 mg PO DAILY [facility] Last Admin: 01/01/17 10:44 Dose: 25 mg Insulin Aspart (Novolog) 0 unit SC ACHS [facility] PRN Reason: Protocol Last Admin: 01/02/17 08:39 Dose: 10 unit Methylprednisolone (Solu-Medrol) 40 mg IVP Q8H [facility] Last Admin: 01/02/17 08:40 Dose: 40 mg Montelukast Sodium (Singulair) 10 mg PO HS [facility] Last Admin: 01/01/17 21:33 Dose: 10 mg Moxifloxacin HCl (Avelox) 400 mg PO DAILY [facility] Last Admin: 01/01/17 10:46 Dose: 400 mg Pantoprazole Sodium (Protonix Inj) 40 mg IVP DAILY [facility] Last Admin: 01/01/17 09:43 Dose: 40 mg Promethazine HCl/Codeine (Phenergan/Codeine Oral Syrup) 5 ml PO Q6H PRN PRN Reason: Cough Last Admin: 01/02/17 00:16 Dose: 5 ml Temazepam (Restoril) 15 mg PO HS PRN PRN Reason: Insomnia Verapamil HCl (Calan Sr Tab) 240 mg PO DAILY [facility] Last Admin: 01/01/17 10:45 Dose: 240 mg - Labs Labs: 01/02/17 06:50 01/02/17 06:50 PT 11.5 SECONDS (9.7-12.2) 12/27/16 14:02 INR 1.0 12/27/16 14:02 APTT 26 SECONDS (21-34) 12/27/16 14:02 Attending/Attestation - Attestation I have personally seen and examined this patient.: Yes I have fully participated in the care of the patient.: Yes I have reviewed all pertinent clinical information, including history, physical exam and plan: Yes Notes (Text): 01/02/17 09:02 Patient was seen and examined at bedside with the resident Continue current management for asthma exacerbation Pulmonary is on board. Follow up recommendations. Discussed with urology. Patient will have cystoscopy as outpatient when she is medically cleared I discussed the plan of care with the resident and agree with the above history and physical and assessment/plan by the resident.
[2017-01-01] MEDS ORDERED: Bisacodyl 5mg EC Tab PO ONE (14:09)
--- NOTE | 2017-01-01 15:00 | PN ---
DATE: 01/01/2017 TIME: Roughly about 2:35 p.m. The patient says she is feeling much, much better today. Her breathing supposedly is better. She is voiding elena urine well without any complaints. She has no dysuria, gross hematuria, renal colic, or abdominal pain. PHYSICAL EXAMINATION: VITAL SIGNS: Show a temperature of 98.4, pulse rate is 89, blood pressure is 147/81, respiratory rate is 18, and her O2 sat on nasal cannula is 98%. Her urine culture on 12/28/2016 showed no growth. Blood cultures also are showing no growth after 4 days. LABORATORY EVALUATION: Today 01/01/2017 shows a CBC with a WBC count of 6.0, hemoglobin of ____ and hematocrit of 27.9 with a platelet count of 242,000 indicating a severe anemia. Her chem profile shows a sodium of 140, potassium 3.8, chloride 102, CO2 22, BUN and creatinine of 40 and 1.6, respectively with a GFR of 31 indicating a severe chronic kidney disease stage III. Her glucose max today was 345 which appears to still be not controlled. Calcium was 8.4. Her AST is 16, ALT was 21. Alk phos is 52. DIAGNOSTIC IMPRESSION: Bladder masses, larger on the right measuring 4.2 cm causing distal right ureteral obstruction at the right ureterovesical with right hydronephrosis. The second bladder mass in the left bladder wall measuring about 1.1 cm. PLAN: To eventually schedule the patient for cystoscopy with possible bladder biopsy. This can be done as an outpatient. The patient so far has still not been cleared by pulmonary for this procedure. This case was discussed with Dr. Herrmann. If the patient does get discharged this weekend, pulmonary clearance will have to be faxed to my office and my fax # is [phone]. Office f/u 1 week.. Jesus Brock MD cc: [id number] TT: 01/01/2017 14:58:52 Confirmation # [id number] Dictation # [id number] ivana PEREZ
--- NOTE | 2017-01-01 18:18 | CP.PCM.PN ---
Subjective - Date & Time of Evaluation Date of Evaluation: 01/01/17 Time of Evaluation: 17:35 - Subjective Subjective: Patient seen and examined sitting comfortably in no acute distress but still complaining of slight cough and wheezing. Denies fever or chills, denies chest pain Objective - Vital Signs/Intake and Output Vital Signs (last 24 hours): Temp Pulse Resp BP Pulse Ox 98.4 F 97 H 20 136/73 96 01/01/17 15:12 01/01/17 15:12 01/01/17 15:12 01/01/17 15:12 01/01/17 15:12 Intake and Output: 01/01/17 01/01/17 06:59 18:59 Intake Total 20 Balance 20 - Medications Medications: Current Medications Acetaminophen (Tylenol 325mg Tab) 650 mg PO Q6 PRN PRN Reason: Pain, moderate (4-7) Last Admin: 12/27/16 22:19 Dose: 650 mg Albuterol/Ipratropium (Duoneb 3 Mg/0.5 Mg (3 Ml) Ud) 3 ml INH RQ6 [facility] Last Admin: 01/01/17 14:05 Dose: 3 ml Docusate Sodium (Colace) 100 mg PO BID [facility] Last Admin: 01/01/17 17:47 Dose: 100 mg Ferrous Sulfate (Feosol) 325 mg PO DAILY [facility] Last Admin: 01/01/17 10:47 Dose: 325 mg Gabapentin (Neurontin) 100 mg PO BID [facility] Last Admin: 01/01/17 17:46 Dose: 100 mg Guaifenesin (Mucinex La) 600 mg PO BID [facility] Last Admin: 01/01/17 11:34 Dose: 600 mg Hydrochlorothiazide (Hydrodiuril) 25 mg PO DAILY [facility] Last Admin: 01/01/17 10:44 Dose: 25 mg Insulin Aspart (Novolog) 0 unit SC ACHS [facility] PRN Reason: Protocol Last Admin: 01/01/17 17:47 Dose: 2 unit Methylprednisolone (Solu-Medrol) 40 mg IVP Q8H [facility] Last Admin: 01/01/17 16:23 Dose: 40 mg Montelukast Sodium (Singulair) 10 mg PO HS [facility] Last Admin: 12/31/16 21:23 Dose: 10 mg Moxifloxacin HCl (Avelox) 400 mg PO DAILY [facility] Last Admin: 01/01/17 10:46 Dose: 400 mg Pantoprazole Sodium (Protonix Inj) 40 mg IVP DAILY [facility] Last Admin: 01/01/17 09:43 Dose: 40 mg Promethazine HCl/Codeine (Phenergan/Codeine Oral Syrup) 5 ml PO Q6H PRN PRN Reason: Cough Last Admin: 12/30/16 23:48 Dose: 5 ml Temazepam (Restoril) 15 mg PO HS PRN PRN Reason: Insomnia Verapamil HCl (Calan Sr Tab) 240 mg PO DAILY [facility] Last Admin: 01/01/17 10:45 Dose: 240 mg Zolpidem Tartrate (Ambien) 5 mg PO HS PRN PRN Reason: Insomnia Last Admin: 12/31/16 23:58 Dose: 5 mg - Labs Labs: 01/01/17 11:09 01/01/17 11:09 PT 11.5 SECONDS (9.7-12.2) 12/27/16 14:02 INR 1.0 12/27/16 14:02 APTT 26 SECONDS (21-34) 12/27/16 14:02 - Head Exam Head Exam: ATRAUMATIC, NORMOCEPHALIC - Eye Exam Eye Exam: Normal appearance - ENT Exam ENT Exam: Mucous Membranes Moist - Neck Exam Neck Exam: Normal Inspection - Respiratory Exam Respiratory Exam: Rhonchi, Wheezes - Cardiovascular Exam Cardiovascular Exam: REGULAR RHYTHM - GI/Abdominal Exam GI & Abdominal Exam: Soft, Normal Bowel Sounds - Extremities Exam Extremities Exam: Full ROM Assessment and Plan (1) COPD exacerbation Assessment & Plan: Continue nebulizer treatment and steroids ABG consistent with respiratory alkalosis Status: Acute (2) Lung nodule, solitary Status: Acute
[2017-01-02] MEDS: Promethazine/Cod 6.25mg-10mg/5ml Syr UD PO PRN (00:16)
[2017-01-02] MEDS: MethylPREDNISolone 40 mg Vial IVP SCH ×3 (00:16→21:19)
[2017-01-02] MEDS: Albuterol-Ipratrop 3 mg / 0.5 (3 ml) UD INH SCH ×4 (01:16→19:13)
[2017-01-02] MEDS ORDERED: Magnesium Hydroxide Susp 30 ml UD PO ONE (04:15)
[2017-01-02 07:25] LABS: BASO % 0.3 % (0.0-2.0); EOS % 0.1 % (0.0-4.0); LYMPH # 0.4 K/uL (1.0-4.3); MEAN CELL VOLUME 70.9 fL (81.0-99.0); MEAN CORPUSCULAR HEMOGLOBIN 22.7 pg (27.0-31.0); MEAN CORPUSCULAR HGB CONC 32.1 g/dL (33.0-37.0); MEAN PLATELET VOLUME 8.9 fL (7.2-11.7); MONO # 0.4 K/uL (0.0-0.8); MONO % 6.2 % (0.0-10.0); NRBC % 0.1 % (0.0-2.0); PLATELET COUNT 240 K/uL (130-400); RED CELL DISTRIBUTION WIDTH 17.6 % (11.5-14.5); WHITE BLOOD COUNT 6.6 K/uL (4.8-10.8)
[2017-01-02 07:43] LABS: ALB/GLOB RATIO 1.5 (1.0-2.1); BILIRUBIN,TOTAL 0.5 mg/dL (0.2-1.3); CALCIUM 8.3 mg/dl (8.6-10.4); TOTAL PROTEIN 6.2 g/dL (6.3-8.3)
[2017-01-02] MEDS: (Novolog) Insulin Aspart, Recombinant 100 u/ml 10 ml vial SC SCH ×4 (08:39→21:20)
[2017-01-02 09:29] LABS: EOSINOPHIL 1 % (0-4); NEUTROPHIL 83 % (50-75); TOTAL CELLS COUNTED 100
[2017-01-02] MEDS ORDERED: (Lantus) Insulin Glargine, Recombinant SC SCH (09:30)
[2017-01-02] MEDS: Verapamil 240 mg ER Tab PO SCH (09:51)
[2017-01-02] MEDS: guaiFENesin 600 mg ER Tab PO SCH ×2 (09:56→17:29)
[2017-01-02] MEDS ORDERED: Magnesium Citrate Oral SOL (300 ml) PO ONE (10:17)
--- NOTE | 2017-01-02 12:09 | CP.PCM.PN ---
<Astrid Burrell - Last Filed: 01/02/17 13:20> Subjective - Date & Time of Evaluation Date of Evaluation: 01/02/17 Time of Evaluation: 08:00 - Subjective Subjective: Medicine Progress Note- Dr. Herrmann's Service: Patient seen and examined at bedside this AM. Patient reports she is breathing better but she is still wheezing. She is complaining of constipation. She has not had BM since admission. Denies fevers, chills, nausea, vomiting, dysuria. Admits to left flank pain that is always present as per patient. Objective - Vital Signs/Intake and Output Vital Signs (last 24 hours): Temp Pulse Resp BP Pulse Ox 98.3 F 98 H 20 161/74 H 97 01/02/17 07:00 01/02/17 07:50 01/02/17 07:00 01/02/17 07:00 01/02/17 07:00 Intake and Output: 01/02/17 01/02/17 06:59 18:59 Intake Total 120 Balance 120 - Medications Medications: Current Medications Acetaminophen (Tylenol 325mg Tab) 650 mg PO Q6 PRN PRN Reason: Pain, moderate (4-7) Last Admin: 01/02/17 04:39 Dose: 650 mg Albuterol/Ipratropium (Duoneb 3 Mg/0.5 Mg (3 Ml) Ud) 3 ml INH RQ6 [facility] Last Admin: 01/02/17 08:35 Dose: 3 ml Docusate Sodium (Colace) 100 mg PO BID [facility] Last Admin: 01/02/17 09:51 Dose: 100 mg Ferrous Sulfate (Feosol) 325 mg PO DAILY [facility] Last Admin: 01/02/17 09:52 Dose: 325 mg Gabapentin (Neurontin) 100 mg PO BID [facility] Last Admin: 01/02/17 09:50 Dose: 100 mg Guaifenesin (Mucinex La) 600 mg PO BID [facility] Last Admin: 01/02/17 09:56 Dose: 600 mg Hydrochlorothiazide (Hydrodiuril) 25 mg PO DAILY [facility] Last Admin: 01/01/17 10:44 Dose: 25 mg Insulin Aspart (Novolog) 0 unit SC ACHS [facility] PRN Reason: Protocol Last Admin: 01/02/17 08:39 Dose: 10 unit Insulin Glargine (Lantus) 10 unit SC DAILY [facility] Last Admin: 01/02/17 09:56 Dose: 10 u Methylprednisolone (Solu-Medrol) 40 mg IVP Q8H [facility] Last Admin: 01/02/17 08:40 Dose: 40 mg Montelukast Sodium (Singulair) 10 mg PO HS [facility] Last Admin: 01/01/17 21:33 Dose: 10 mg Moxifloxacin HCl (Avelox) 400 mg PO DAILY [facility] Last Admin: 01/01/17 10:46 Dose: 400 mg Pantoprazole Sodium (Protonix Inj) 40 mg IVP DAILY [facility] Last Admin: 01/02/17 09:50 Dose: 40 mg Promethazine HCl/Codeine (Phenergan/Codeine Oral Syrup) 5 ml PO Q6H PRN PRN Reason: Cough Last Admin: 01/02/17 00:16 Dose: 5 ml Temazepam (Restoril) 15 mg PO HS PRN PRN Reason: Insomnia Verapamil HCl (Calan Sr Tab) 240 mg PO DAILY [facility] Last Admin: 01/02/17 09:51 Dose: 240 mg - Labs Labs: 01/02/17 06:50 01/02/17 06:50 PT 11.5 SECONDS (9.7-12.2) 12/27/16 14:02 INR 1.0 12/27/16 14:02 APTT 26 SECONDS (21-34) 12/27/16 14:02 - Constitutional Appears: No Acute Distress - Head Exam Head Exam: NORMAL INSPECTION, NORMOCEPHALIC - Eye Exam Eye Exam: EOMI, Normal appearance - ENT Exam ENT Exam: Mucous Membranes Moist - Neck Exam Neck Exam: Full ROM - Respiratory Exam Respiratory Exam: Wheezes, NORMAL BREATHING PATTERN - Cardiovascular Exam Cardiovascular Exam: REGULAR RHYTHM, +S1, +S2 - GI/Abdominal Exam GI & Abdominal Exam: Soft. absent: Distended, Tenderness - Extremities Exam Extremities Exam: Full ROM - Back Exam Back Exam: NORMAL INSPECTION - Neurological Exam Neurological Exam: Alert, Oriented x3 - Psychiatric Exam Psychiatric exam: Normal Affect, Normal Mood - Skin Skin Exam: Dry, Normal Color, Warm Assessment and Plan - Assessment and Plan (Free Text) Assessment: (1) Asthma Exacerbation * In the ED, given Duonebs and Solumedrol 125mg IV X1, IV mag sulfate, terbutaline SC and placed on BiPAP * Solumedrol 40mg IV [id number]- Will begin to taper down to Q12H. * Duoneb 3ml q6h r * Singular 10mg PO HS * Phenergan with codeine for cough 5ml PO Q6H PRN * Mucinex 600mg PO BID * 12/27 CXR shows hyperinflation with centrilobular emphysematous changes in upper lobe - please see full report * 12/28 CXR shows possible small right-sided effusion, developing hazy opacities in the lung bases - please see full report * 12/29 CT Chest please see full report -left pleural effusion possible -emphysetmatous changes -left upper lobe 5-6mm nodule similar to 06/21 study - consider f/u CT in 12 months -right parapelvic cysts and left adrenal hyperplasia and/or small benign adenoma * Blood Culture - No growth after 4 days * Urine Culture - no growth * d-dimer negative * Strep pneumonaie negative * Legionella ordered * Influenza AB negative * Mycoplasma IgM 309 normal * Mycoplasma IgG 1.19 high * Procalcitonin has been collected * Avelox IVPB Q24 for pneumonia coverage * Pulm consult - Dr. Almazan (2) Chronic Anemia * monitor H/H * increased to 8.7 asymptomatic * Fe studies from Jun 2016 show Fe def and low Fe Saturation, with low normal ferritin * Fe study shows Fe def with low Fe sat @ 7.8 and normal TIBC * Continue Ferrous Sulfate 325 tab daily (3) Diabetes mellitus * held metformin 500mg BID * ISS High Dose/Accuchecks ACHS * Gabapentin 100mg PO BID * HgbA1c 7.1 * Moderate consistent carb diet (4) Hypertension * Verapamil 240mg po daily * HCTZ 25mg PO daily * hold SBP < 100, HR <60 (5) Post herpetic neuralgia * History of shingles * hold tramadol 50mg PO Q6hprn (6) Lung nodule, solitary * Patient with history on imaging CT chest noted for 3.5 nodule * Monitor (7) Unspecified bladder mass * Patient did not follow up with urology for cystoscopy * UA - postive for protein, RBCs, WBCs * Renal U/S - please see full report - severe hydronephrosis(worse from 06/21), of the right renal collecting system with echogenic debris - bladder mass has increased in size from previous - recommend cystoscopy - BL echogenic cortex suggestive of renal parenchymal disease * Abd/Pel CT PO Contrast only - please see full report -findings suspicious for BL bladder masses -larger mass causing right hydroureteronephrosis * consult Urology - Dr. Brock - Eventually schedule to cystoscopy and biopsy, can do as outpatient - Cytology: Single scattered highly atypical urothelial cells, in the background of squamous cells, mixed inflammatory cells and RBCs - Bone Scan Whole Body: please see full report. Indeterminate finding anterior right 7th rib - cystoscopy pending evaluation from Pulm, per Pulm note not cleared for procedure (8) Insomnia Restoril 15mg (9) Prophylactic measure SCDs protonix 40mg IV daily Heart healthy moderate consistent carb diet <Lex Herrmann - Last Filed: 01/02/17 15:49> Objective - Vital Signs/Intake and Output Vital Signs (last 24 hours): Temp Pulse Resp BP Pulse Ox 98.3 F 98 H 20 161/74 H 97 01/02/17 07:00 01/02/17 07:50 01/02/17 07:00 01/02/17 07:00 01/02/17 07:00 Intake and Output: 01/02/17 01/02/17 06:59 18:59 Intake Total 120 Balance 120 - Medications Medications: Current Medications Acetaminophen (Tylenol 325mg Tab) 650 mg PO Q6 PRN PRN Reason: Pain, moderate (4-7) Last Admin: 01/02/17 04:39 Dose: 650 mg Albuterol/Ipratropium (Duoneb 3 Mg/0.5 Mg (3 Ml) Ud) 3 ml INH RQ6 [facility] Last Admin: 01/02/17 13:17 Dose: 3 ml Docusate Sodium (Colace) 100 mg PO BID [facility] Last Admin: 01/02/17 09:51 Dose: 100 mg Ferrous Sulfate (Feosol) 325 mg PO DAILY [facility] Last Admin: 01/02/17 09:52 Dose: 325 mg Gabapentin (Neurontin) 100 mg PO BID [facility] Last Admin: 01/02/17 09:50 Dose: 100 mg Guaifenesin (Mucinex La) 600 mg PO BID [facility] Last Admin: 01/02/17 09:56 Dose: 600 mg Hydrochlorothiazide (Hydrodiuril) 25 mg PO DAILY [facility] Last Admin: 01/02/17 09:56 Dose: 25 mg Insulin Aspart (Novolog) 0 unit SC ACHS [facility] PRN Reason: Protocol Last Admin: 01/02/17 12:54 Dose: 1 unit Insulin Glargine (Lantus) 10 unit SC DAILY [facility] Last Admin: 01/02/17 09:56 Dose: 10 u Methylprednisolone (Solu-Medrol) 40 mg IVP Q12H [facility] Montelukast Sodium (Singulair) 10 mg PO HS [facility] Last Admin: 01/01/17 21:33 Dose: 10 mg Moxifloxacin HCl (Avelox) 400 mg PO DAILY [facility] Last Admin: 01/02/17 09:56 Dose: 400 mg Pantoprazole Sodium (Protonix Inj) 40 mg IVP DAILY [facility] Last Admin: 01/02/17 09:50 Dose: 40 mg Promethazine HCl/Codeine (Phenergan/Codeine Oral Syrup) 5 ml PO Q6H PRN PRN Reason: Cough Last Admin: 01/02/17 00:16 Dose: 5 ml Temazepam (Restoril) 15 mg PO HS PRN PRN Reason: Insomnia Verapamil HCl (Calan Sr Tab) 240 mg PO DAILY [facility] Last Admin: 01/02/17 09:51 Dose: 240 mg - Labs Labs: 01/02/17 06:50 01/02/17 06:50 PT 11.5 SECONDS (9.7-12.2) 12/27/16 14:02 INR 1.0 12/27/16 14:02 APTT 26 SECONDS (21-34) 12/27/16 14:02 Attending/Attestation - Attestation I have personally seen and examined this patient.: Yes I have fully participated in the care of the patient.: Yes I have reviewed all pertinent clinical information, including history, physical exam and plan: Yes Notes (Text): 01/02/17 15:46 Patient was seen and examined at bedside She complains of constipation. She is has not had a bowel movement the last few days e patient is on a bowel regimen. We will administer magnesium citrate today. Patient continues to have the wheezing. Continue IV steroids and nebulizing treatment. We will titrate down the steroids. Discharge when cleared by pulmonary.
[2017-01-03] MEDS: Albuterol-Ipratrop 3 mg / 0.5 (3 ml) UD INH SCH ×3 (02:45→12:59)
[2017-01-03 06:21] LABS: BASO % 0.2 % (0.0-2.0); EOS % 0.1 % (0.0-4.0); HEMATOCRIT 27.3 % (34.0-47.0); LYMPH # 0.6 K/uL (1.0-4.3); LYMPH % 7.7 % (20.0-40.0); MEAN CORPUSCULAR HEMOGLOBIN 23.4 pg (27.0-31.0); MEAN CORPUSCULAR HGB CONC 32.9 g/dL (33.0-37.0); MEAN PLATELET VOLUME 8.5 fL (7.2-11.7); MONO # 0.7 K/uL (0.0-0.8); MONO % 9.1 % (0.0-10.0); PLATELET COUNT 228 K/uL (130-400); RED CELL DISTRIBUTION WIDTH 17.4 % (11.5-14.5); WHITE BLOOD COUNT 7.8 K/uL (4.8-10.8)
[2017-01-03 06:25] LABS: POTASSIUM 4.8 mmol/L (3.6-5.2)
[2017-01-03 06:27] LABS: ALB/GLOB RATIO 1.4 (1.0-2.1); BILIRUBIN,TOTAL 0.5 mg/dL (0.2-1.3); TOTAL PROTEIN 6.2 g/dL (6.3-8.3)
[2017-01-03] MEDS: MethylPREDNISolone 40 mg Vial IVP SCH ×2 (08:05→21:22)
[2017-01-03] MEDS: (Novolog) Insulin Aspart, Recombinant 100 u/ml 10 ml vial SC SCH ×4 (08:05→21:31)
[2017-01-03 08:14] LABS: NEUTROPHIL 83 % (50-75); TOTAL CELLS COUNTED 100
[2017-01-03 08:15] LABS: LARGE PLATELETS PRESENT
[2017-01-03] MEDS ORDERED: POLYETHYLENE GLYCOL 3350 17 GM/Dose PACKET PO SCH (10:00)
[2017-01-03] MEDS: (Lantus) Insulin Glargine, Recombinant SC SCH (10:36)
[2017-01-03] MEDS: guaiFENesin 600 mg ER Tab PO SCH ×2 (10:38→17:31)
[2017-01-03] MEDS: Verapamil 240 mg ER Tab PO SCH (10:39)
--- NOTE | 2017-01-03 15:29 | CP.PCM.PN ---
<Astrid Burrell - Last Filed: 01/03/17 15:22> Subjective - Date & Time of Evaluation Date of Evaluation: 01/03/17 Time of Evaluation: 08:35 - Subjective Subjective: Medicine Progress Note- Dr. Herrmann's Service Patient seen and examined at bedside this AM. Patient is complaining of continued constipation earlier this AM. She states she feels abdominal fullness and pressure in her left lower quadrant. She also experienced SOB secondary to feeling "so full" at 3 am last night. SOB improved with 2 treatments of duonebs. She denies diarrhea, fevers, chills nausea, vomiting, straining. She denies any other issues at this time. Later in the morning patient had BM with new bowel regiment. Objective - Vital Signs/Intake and Output Vital Signs (last 24 hours): Temp Pulse Resp BP Pulse Ox 98.4 F 90 18 155/73 H 98 01/03/17 08:35 01/03/17 08:35 01/03/17 08:35 01/03/17 08:35 01/03/17 08:35 - Medications Medications: Current Medications Acetaminophen (Tylenol 325mg Tab) 650 mg PO Q6 PRN PRN Reason: Pain, moderate (4-7) Last Admin: 01/02/17 04:39 Dose: 650 mg Docusate Sodium (Colace) 100 mg PO BID [facility] Last Admin: 01/03/17 10:37 Dose: 100 mg Ferrous Sulfate (Feosol) 325 mg PO DAILY [facility] Last Admin: 01/02/17 09:52 Dose: 325 mg Gabapentin (Neurontin) 100 mg PO BID [facility] Last Admin: 01/03/17 10:39 Dose: 100 mg Guaifenesin (Mucinex La) 600 mg PO BID [facility] Last Admin: 01/03/17 10:38 Dose: 600 mg Hydrochlorothiazide (Hydrodiuril) 25 mg PO DAILY [facility] Last Admin: 01/03/17 10:37 Dose: 25 mg Insulin Aspart (Novolog) 0 unit SC ACHS [facility] PRN Reason: Protocol Last Admin: 01/03/17 12:38 Dose: 1 unit Insulin Glargine (Lantus) 12 unit SC DAILY [facility] Last Admin: 01/03/17 10:36 Dose: 12 u Methylprednisolone (Solu-Medrol) 40 mg IVP Q12H [facility] Last Admin: 01/03/17 08:05 Dose: 40 mg Montelukast Sodium (Singulair) 10 mg PO HS [facility] Last Admin: 01/02/17 21:19 Dose: 10 mg Moxifloxacin HCl (Avelox) 400 mg PO DAILY [facility] Last Admin: 01/03/17 10:37 Dose: 400 mg Pantoprazole Sodium (Protonix Inj) 40 mg IVP DAILY [facility] Last Admin: 01/03/17 10:38 Dose: 40 mg Polyethylene Glycol (Miralax) 17 gm PO DAILY [facility] Promethazine HCl/Codeine (Phenergan/Codeine Oral Syrup) 5 ml PO Q6H PRN PRN Reason: Cough Last Admin: 01/02/17 00:16 Dose: 5 ml Temazepam (Restoril) 15 mg PO HS PRN PRN Reason: Insomnia Verapamil HCl (Calan Sr Tab) 240 mg PO DAILY [facility] Last Admin: 01/03/17 10:39 Dose: 240 mg - Labs Labs: 01/03/17 06:10 01/03/17 06:10 PT 11.5 SECONDS (9.7-12.2) 12/27/16 14:02 INR 1.0 12/27/16 14:02 APTT 26 SECONDS (21-34) 12/27/16 14:02 - Constitutional Appears: No Acute Distress - Head Exam Head Exam: NORMAL INSPECTION, NORMOCEPHALIC - Eye Exam Eye Exam: EOMI, Normal appearance - ENT Exam ENT Exam: Mucous Membranes Moist - Neck Exam Neck Exam: Full ROM, Normal Inspection - Respiratory Exam Respiratory Exam: Wheezes, NORMAL BREATHING PATTERN - Cardiovascular Exam Cardiovascular Exam: REGULAR RHYTHM, +S1, +S2 - GI/Abdominal Exam GI & Abdominal Exam: Soft. absent: Distended, Tenderness - Extremities Exam Extremities Exam: Full ROM, Normal Inspection - Back Exam Back Exam: NORMAL INSPECTION - Neurological Exam Neurological Exam: Alert, Awake, Oriented x3 - Psychiatric Exam Psychiatric exam: Normal Affect, Normal Mood - Skin Skin Exam: Normal Color, Warm Assessment and Plan - Assessment and Plan (Free Text) Assessment: (1) Asthma Exacerbation * In the ED, given Duonebs and Solumedrol 125mg IV X1, IV mag sulfate, terbutaline SC and placed on BiPAP * Solumedrol 40mg IV [id number]- Will begin to taper down to Q12H. * Duoneb 3ml q6h r * Singular 10mg PO HS * Phenergan with codeine for cough 5ml PO Q6H PRN * Mucinex 600mg PO BID * 12/27 CXR shows hyperinflation with centrilobular emphysematous changes in upper lobe - please see full report * 12/28 CXR shows possible small right-sided effusion, developing hazy opacities in the lung bases - please see full report * 12/29 CT Chest please see full report -left pleural effusion possible -emphysetmatous changes -left upper lobe 5-6mm nodule similar to 06/21 study - consider f/u CT in 12 months -right parapelvic cysts and left adrenal hyperplasia and/or small benign adenoma * Blood Culture - No growth after 4 days * Urine Culture - no growth * d-dimer negative * Strep pneumonaie negative * Legionella ordered * Influenza AB negative * Mycoplasma IgM 309 normal * Mycoplasma IgG 1.19 high * Procalcitonin has been collected * Avelox IVPB Q24 for pneumonia coverage * Pulm consult - Dr. Almazan * When patient is medically cleared for cystoscopy, the clearance report is to be faxed by the medical team to Dr. Andrews's office at fax #[phone]. (2) Chronic Anemia * monitor H/H * increased to 9.0 asymptomatic * Fe studies from Jun 2016 show Fe def and low Fe Saturation, with low normal ferritin * Fe study shows Fe def with low Fe sat @ 7.8 and normal TIBC * D/C Ferrous Sulfate 2/2 constipation (3) Diabetes mellitus * held metformin 500mg BID * ISS High Dose/Accuchecks ACHS * Gabapentin 100mg PO BID * HgbA1c 7.1 * Moderate consistent carb diet (4) Hypertension * Verapamil 240mg po daily * HCTZ 25mg PO daily * hold SBP < 100, HR <60 (5) Post herpetic neuralgia * History of shingles * hold tramadol 50mg PO Q6hprn (6) Lung nodule, solitary * Patient with history on imaging CT chest noted for 3.5 nodule * Monitor (7) Unspecified bladder mass * Patient did not follow up with urology for cystoscopy * UA - postive for protein, RBCs, WBCs * Renal U/S - please see full report - severe hydronephrosis(worse from 06/21), of the right renal collecting system with echogenic debris - bladder mass has increased in size from previous - recommend cystoscopy - BL echogenic cortex suggestive of renal parenchymal disease * Abd/Pel CT PO Contrast only - please see full report -findings suspicious for BL bladder masses -larger mass causing right hydroureteronephrosis * consult Urology - Dr. Brock - Eventually schedule to cystoscopy and biopsy, can do as outpatient - Cytology: Single scattered highly atypical urothelial cells, in the background of squamous cells, mixed inflammatory cells and RBCs - Bone Scan Whole Body: please see full report. Indeterminate finding anterior right 7th rib - cystoscopy pending evaluation from Pulm, per Pulm note not cleared for procedure (8) Constipation * Lactulose given once this AM with resulting BM * Start Miralax 17 mg PO daily * Continue Colace 100 mg PO BID (9) Insomnia Restoril 15mg (10) Prophylactic measure SCDs protonix 40mg IV daily Heart healthy moderate consistent carb diet <Lex Herrmann - Last Filed: 01/03/17 17:13> Objective - Vital Signs/Intake and Output Vital Signs (last 24 hours): Temp Pulse Resp BP Pulse Ox 98.7 F 87 20 143/75 100 01/03/17 15:00 01/03/17 15:00 01/03/17 15:00 01/03/17 15:00 01/03/17 15:00 - Medications Medications: Current Medications Acetaminophen (Tylenol 325mg Tab) 650 mg PO Q6 PRN PRN Reason: Pain, moderate (4-7) Last Admin: 01/02/17 04:39 Dose: 650 mg Docusate Sodium (Colace) 100 mg PO BID [facility] Last Admin: 01/03/17 10:37 Dose: 100 mg Ferrous Sulfate (Feosol) 325 mg PO DAILY [facility] Last Admin: 01/02/17 09:52 Dose: 325 mg Gabapentin (Neurontin) 100 mg PO BID [facility] Last Admin: 01/03/17 10:39 Dose: 100 mg Guaifenesin (Mucinex La) 600 mg PO BID [facility] Last Admin: 01/03/17 10:38 Dose: 600 mg Hydrochlorothiazide (Hydrodiuril) 25 mg PO DAILY [facility] Last Admin: 01/03/17 10:37 Dose: 25 mg Insulin Aspart (Novolog) 0 unit SC ACHS [facility] PRN Reason: Protocol Last Admin: 01/03/17 12:38 Dose: 1 unit Insulin Glargine (Lantus) 12 unit SC DAILY [facility] Last Admin: 01/03/17 10:36 Dose: 12 u Methylprednisolone (Solu-Medrol) 40 mg IVP Q12H [facility] Last Admin: 01/03/17 08:05 Dose: 40 mg Montelukast Sodium (Singulair) 10 mg PO HS [facility] Last Admin: 01/02/17 21:19 Dose: 10 mg Moxifloxacin HCl (Avelox) 400 mg PO DAILY [facility] Last Admin: 01/03/17 10:37 Dose: 400 mg Pantoprazole Sodium (Protonix Inj) 40 mg IVP DAILY [facility] Last Admin: 01/03/17 10:38 Dose: 40 mg Polyethylene Glycol (Miralax) 17 gm PO DAILY [facility] Promethazine HCl/Codeine (Phenergan/Codeine Oral Syrup) 5 ml PO Q6H PRN PRN Reason: Cough Last Admin: 01/02/17 00:16 Dose: 5 ml Temazepam (Restoril) 15 mg PO HS PRN PRN Reason: Insomnia Verapamil HCl (Calan Sr Tab) 240 mg PO DAILY [facility] Last Admin: 01/03/17 10:39 Dose: 240 mg - Labs Labs: 01/03/17 06:10 01/03/17 06:10 PT 11.5 SECONDS (9.7-12.2) 12/27/16 14:02 INR 1.0 12/27/16 14:02 APTT 26 SECONDS (21-34) 12/27/16 14:02 Attending/Attestation - Attestation I have personally seen and examined this patient.: Yes I have fully participated in the care of the patient.: Yes I have reviewed all pertinent clinical information, including history, physical exam and plan: Yes Notes (Text): 01/03/17 17:12 Patient was seen and examined at bedside She stated that she is feeling better On auscultation wheezing has improved We will continue IV Solu-Medrol. Patient is currently on 40 mg every 12 hours. Patient also had a bowel movement today. We will continue bowel regimen Plan is for discharge the patient to home when cleared by pulmonary so that patient can follow up with the Dr. Brock in his office for evaluation of bladder mass and for cystoscopy/biopsy. Medical clearance to be faxed to the office of Dr. Brock. I discussed the plan of care with the resident and agree with the above history and physical and assessment/plan by the resident.
[2017-01-03 15:31] VITALS: RESP 20
[2017-01-04] MEDS ORDERED: Albuterol-Ipratrop 3 mg / 0.5 (3 ml) UD INH STA ×2 (05:50)
[2017-01-04 06:36] LABS: POTASSIUM 4.9 mmol/L (3.6-5.2)
[2017-01-04 06:38] LABS: BILIRUBIN,TOTAL 0.5 mg/dL (0.2-1.3)
[2017-01-04 06:39] LABS: ALB/GLOB RATIO 1.3 (1.0-2.1); PHOSPHOROUS 4.5 mg/dL (2.5-4.5); TOTAL PROTEIN 6.1 g/dL (6.3-8.3)
[2017-01-04 06:40] LABS: CALCIUM 8.3 mg/dl (8.6-10.4); MAGNESIUM 2.1 mg/dL (1.6-2.3)
[2017-01-04 06:43] LABS: BASO % 0.2 % (0.0-2.0); HEMATOCRIT 29.1 % (34.0-47.0); LYMPH # 1.1 K/uL (1.0-4.3); LYMPH % 12.3 % (20.0-40.0); MEAN CELL VOLUME 70.9 fL (81.0-99.0); MEAN CORPUSCULAR HEMOGLOBIN 22.7 pg (27.0-31.0); MEAN PLATELET VOLUME 8.7 fL (7.2-11.7); MONO # 0.4 K/uL (0.0-0.8); RED CELL DISTRIBUTION WIDTH 17.6 % (11.5-14.5); WHITE BLOOD COUNT 8.5 K/uL (4.8-10.8)
[2017-01-04] MEDS: (Novolog) Insulin Aspart, Recombinant 100 u/ml 10 ml vial SC SCH ×4 (08:07→21:52)
[2017-01-04] MEDS: MethylPREDNISolone 40 mg Vial IVP SCH ×2 (08:08→20:30)
[2017-01-04] MEDS: POLYETHYLENE GLYCOL 3350 17 GM/Dose PACKET PO SCH (10:39)
[2017-01-04] MEDS: Verapamil 240 mg ER Tab PO SCH (10:40)
[2017-01-04] MEDS: guaiFENesin 600 mg ER Tab PO SCH ×2 (10:41→17:40)
[2017-01-04] MEDS: (Lantus) Insulin Glargine, Recombinant SC SCH (10:50)
[2017-01-04] MEDS: Albuterol-Ipratrop 3 mg / 0.5 (3 ml) UD INH SCH ×2 (13:35→19:39)
--- NOTE | 2017-01-04 17:53 | CP.PCM.PN ---
Subjective - Date & Time of Evaluation Date of Evaluation: 01/04/17 Time of Evaluation: 09:00 - Subjective Subjective: Patient seen and examined. Sitting comfortably in no acute distress and is ambulatory without any shortness of breath Denies cough, denies fever or chills Objective - Vital Signs/Intake and Output Vital Signs (last 24 hours): Temp Pulse Resp BP Pulse Ox 98.6 F 82 20 118/69 99 01/04/17 15:00 01/04/17 16:00 01/04/17 15:00 01/04/17 15:00 01/04/17 15:00 - Medications Medications: Current Medications Acetaminophen (Tylenol 325mg Tab) 650 mg PO Q6 PRN PRN Reason: Pain, moderate (4-7) Last Admin: 01/02/17 04:39 Dose: 650 mg Albuterol/Ipratropium (Duoneb 3 Mg/0.5 Mg (3 Ml) Ud) 3 ml INH RQ6 [facility] Last Admin: 01/04/17 13:35 Dose: 3 ml Docusate Sodium (Colace) 100 mg PO BID [facility] Last Admin: 01/04/17 17:40 Dose: 100 mg Ferrous Sulfate (Feosol) 325 mg PO DAILY [facility] Last Admin: 01/02/17 09:52 Dose: 325 mg Gabapentin (Neurontin) 100 mg PO BID [facility] Last Admin: 01/04/17 17:40 Dose: 100 mg Guaifenesin (Mucinex La) 600 mg PO BID [facility] Last Admin: 01/04/17 17:40 Dose: 600 mg Hydrochlorothiazide (Hydrodiuril) 25 mg PO DAILY [facility] Last Admin: 01/04/17 10:40 Dose: 25 mg Insulin Aspart (Novolog) 0 unit SC [facility] PRN Reason: Protocol Last Admin: 01/04/17 17:26 Dose: Not Given Insulin Glargine (Lantus) 12 unit SC DAILY [facility] Last Admin: 01/04/17 10:50 Dose: 12 u Methylprednisolone (Solu-Medrol) 40 mg IVP Q12H [facility] Last Admin: 01/04/17 08:08 Dose: 40 mg Montelukast Sodium (Singulair) 10 mg PO HS [facility] Last Admin: 01/03/17 21:22 Dose: 10 mg Moxifloxacin HCl (Avelox) 400 mg PO DAILY [facility] Last Admin: 01/04/17 10:41 Dose: 400 mg Pantoprazole Sodium (Protonix Inj) 40 mg IVP DAILY [facility] Last Admin: 01/04/17 10:42 Dose: 40 mg Polyethylene Glycol (Miralax) 17 gm PO DAILY [facility] Last Admin: 01/04/17 10:39 Dose: 17 gm Promethazine HCl/Codeine (Phenergan/Codeine Oral Syrup) 5 ml PO Q6H PRN PRN Reason: Cough Last Admin: 01/02/17 00:16 Dose: 5 ml Temazepam (Restoril) 15 mg PO HS PRN PRN Reason: Insomnia Verapamil HCl (Calan Sr Tab) 240 mg PO DAILY [facility] Last Admin: 01/04/17 10:40 Dose: 240 mg - Labs Labs: 01/04/17 06:22 01/04/17 06:22 PT 11.5 SECONDS (9.7-12.2) 12/27/16 14:02 INR 1.0 12/27/16 14:02 APTT 26 SECONDS (21-34) 12/27/16 14:02 - Head Exam Head Exam: ATRAUMATIC - Eye Exam Eye Exam: Normal appearance - ENT Exam ENT Exam: Mucous Membranes Moist - Neck Exam Neck Exam: Normal Inspection - Respiratory Exam Respiratory Exam: Clear to Ausculation Bilateral - Cardiovascular Exam Cardiovascular Exam: REGULAR RHYTHM - GI/Abdominal Exam GI & Abdominal Exam: Soft, Normal Bowel Sounds Assessment and Plan (1) COPD exacerbation Assessment & Plan: Continue by mouth prednisone and stable for discharge home Status: Acute (2) Lung nodule, solitary Status: Acute
--- NOTE | 2017-01-04 20:22 | CP.PCM.PN ---
<Phill Ruiz - Last Filed: 01/04/17 20:09> Subjective - Date & Time of Evaluation Date of Evaluation: 01/04/17 Time of Evaluation: 07:30 - Subjective Subjective: Medicine Progress Note- Dr. Nguyen's Service Patient seen and examined at bedside this AM. She states she feels abdominal pressure/pain in her left lower and upper quadrant. She also still have difficulty breathing, but it has improved with duoneb treatment. She denies headache fevers, chills, chest pain, nausea, vomiting, diarrhea. She denies any other issues at this time. Objective - Vital Signs/Intake and Output Vital Signs (last 24 hours): Temp Pulse Resp BP Pulse Ox 98.6 F 82 20 118/69 99 01/04/17 15:00 01/04/17 16:00 01/04/17 15:00 01/04/17 15:00 01/04/17 15:00 - Medications Medications: Current Medications Acetaminophen (Tylenol 325mg Tab) 650 mg PO Q6 PRN PRN Reason: Pain, moderate (4-7) Last Admin: 01/02/17 04:39 Dose: 650 mg Albuterol/Ipratropium (Duoneb 3 Mg/0.5 Mg (3 Ml) Ud) 3 ml INH RQ6 [facility] Last Admin: 01/04/17 19:39 Dose: 3 ml Docusate Sodium (Colace) 100 mg PO BID [facility] Last Admin: 01/04/17 17:40 Dose: 100 mg Ferrous Sulfate (Feosol) 325 mg PO DAILY [facility] Last Admin: 01/02/17 09:52 Dose: 325 mg Gabapentin (Neurontin) 100 mg PO BID [facility] Last Admin: 01/04/17 17:40 Dose: 100 mg Guaifenesin (Mucinex La) 600 mg PO BID [facility] Last Admin: 01/04/17 17:40 Dose: 600 mg Hydrochlorothiazide (Hydrodiuril) 25 mg PO DAILY [facility] Last Admin: 01/04/17 10:40 Dose: 25 mg Insulin Aspart (Novolog) 0 unit SC [facility] PRN Reason: Protocol Last Admin: 01/04/17 17:26 Dose: Not Given Insulin Glargine (Lantus) 12 unit SC DAILY [facility] Last Admin: 01/04/17 10:50 Dose: 12 u Methylprednisolone (Solu-Medrol) 40 mg IVP Q12H [facility] Last Admin: 01/04/17 08:08 Dose: 40 mg Montelukast Sodium (Singulair) 10 mg PO HS [facility] Last Admin: 01/03/17 21:22 Dose: 10 mg Moxifloxacin HCl (Avelox) 400 mg PO DAILY [facility] Last Admin: 01/04/17 10:41 Dose: 400 mg Pantoprazole Sodium (Protonix Inj) 40 mg IVP DAILY [facility] Last Admin: 01/04/17 10:42 Dose: 40 mg Polyethylene Glycol (Miralax) 17 gm PO DAILY [facility] Last Admin: 01/04/17 10:39 Dose: 17 gm Promethazine HCl/Codeine (Phenergan/Codeine Oral Syrup) 5 ml PO Q6H PRN PRN Reason: Cough Last Admin: 01/02/17 00:16 Dose: 5 ml Temazepam (Restoril) 15 mg PO HS PRN PRN Reason: Insomnia Verapamil HCl (Calan Sr Tab) 240 mg PO DAILY [facility] Last Admin: 01/04/17 10:40 Dose: 240 mg - Labs Labs: 01/04/17 06:22 01/04/17 06:22 PT 11.5 SECONDS (9.7-12.2) 12/27/16 14:02 INR 1.0 12/27/16 14:02 APTT 26 SECONDS (21-34) 12/27/16 14:02 - Constitutional Appears: No Acute Distress - Head Exam Head Exam: ATRAUMATIC, NORMAL INSPECTION - Eye Exam Eye Exam: EOMI - ENT Exam ENT Exam: Mucous Membranes Moist - Neck Exam Neck Exam: Full ROM, Normal Inspection - Respiratory Exam Respiratory Exam: Wheezes (expirtartory), NORMAL BREATHING PATTERN - Cardiovascular Exam Cardiovascular Exam: REGULAR RHYTHM, RRR, +S1, +S2. absent: JVD - GI/Abdominal Exam GI & Abdominal Exam: Soft, Tenderness, Normal Bowel Sounds - Extremities Exam Extremities Exam: Full ROM. absent: Joint Swelling, Pedal Edema - Back Exam Back Exam: Full ROM - Neurological Exam Neurological Exam: Alert, Awake, CN II-XII Intact, Normal Gait, Oriented x3 - Psychiatric Exam Psychiatric exam: Normal Affect, Normal Mood - Skin Skin Exam: Dry, Intact, Normal Color, Warm Assessment and Plan - Assessment and Plan (Free Text) Plan: (1) Asthma Exacerbation * In the ED, given Adarshonebs and Solumedrol 125mg IV X1, IV mag sulfate, terbutaline SC and placed on BiPAP * Solumedrol 40mg IV R0ilffu- Will begin to taper down to Q12H. * Duoneb 3ml q6h r * Singular 10mg PO HS * Phenergan with codeine for cough 5ml PO Q6H PRN * Mucinex 600mg PO BID * 12/27 CXR shows hyperinflation with centrilobular emphysematous changes in upper lobe - please see full report * 12/28 CXR shows possible small right-sided effusion, developing hazy opacities in the lung bases - please see full report * 12/29 CT Chest please see full report -left pleural effusion possible -emphysetmatous changes -left upper lobe 5-6mm nodule similar to 06/21 study - consider f/u CT in 12 months -right parapelvic cysts and left adrenal hyperplasia and/or small benign adenoma * Blood Culture - No growth after 5 days * Urine Culture - no growth * d-dimer negative * Strep pneumonaie negative * Legionella ordered * Influenza AB negative * Mycoplasma IgM 309 normal * Mycoplasma IgG 1.19 high * Procalcitonin has been collected * Avelox IVPB Q24 for pneumonia coverage * Pulm consult - Dr. Almazan * When patient is medically cleared for cystoscopy, the clearance report is to be faxed by the medical team to Dr. Andrews's office at fax #[phone]. (2) Chronic Anemia * monitor H/H * increased to 9.0 asymptomatic * Fe studies from Jun 2016 show Fe def and low Fe Saturation, with low normal ferritin * Fe study shows Fe def with low Fe sat @ 7.8 and normal TIBC * D/C Ferrous Sulfate 2/2 constipation (3) Diabetes mellitus * held metformin 500mg BID * ISS High Dose/Accuchecks ACHS * Gabapentin 100mg PO BID * HgbA1c 7.1 * Moderate consistent carb diet (4) Hypertension * Verapamil 240mg po daily * HCTZ 25mg PO daily * hold SBP < 100, HR <60 (5) Post herpetic neuralgia * History of shingles * hold tramadol 50mg PO Q6hprn (6) Lung nodule, solitary * Patient with history on imaging CT chest noted for 3.5 nodule * Monitor (7) Unspecified bladder mass * Patient did not follow up with urology for cystoscopy * UA - postive for protein, RBCs, WBCs * Renal U/S - please see full report - severe hydronephrosis(worse from 06/21), of the right renal collecting system with echogenic debris - bladder mass has increased in size from previous - recommend cystoscopy - BL echogenic cortex suggestive of renal parenchymal disease * Abd/Pel CT PO Contrast only - please see full report -findings suspicious for BL bladder masses -larger mass causing right hydroureteronephrosis * consult Urology - Dr. Brock - Eventually schedule to cystoscopy and biopsy, can do as outpatient - Cytology: Single scattered highly atypical urothelial cells, in the background of squamous cells, mixed inflammatory cells and RBCs - Bone Scan Whole Body: please see full report. Indeterminate finding anterior right 7th rib - cystoscopy pending evaluation from Pulm, per Pulm cleared pt. for cystoscopy on 01/04 (8) Constipation * Lactulose given once this AM with resulting BM * Start Miralax 17 mg PO daily * Continue Colace 100 mg PO BID (9) Insomnia Restoril 15mg (10) Prophylactic measure SCDs protonix 40mg IV daily Heart healthy moderate consistent carb diet Dispo PT evaluation tomorrow <Jonathan Nguyen H - Last Filed: 01/05/17 17:03> Objective - Vital Signs/Intake and Output Vital Signs (last 24 hours): Temp Pulse Resp BP Pulse Ox 98.3 F 92 H 20 165/85 H 99 01/05/17 15:12 01/05/17 15:12 01/05/17 15:12 01/05/17 15:12 01/05/17 15:12 Intake and Output: 01/05/17 01/05/17 06:59 18:59 Intake Total 400 Balance 400 - Medications Medications: Current Medications Acetaminophen (Tylenol 325mg Tab) 650 mg PO Q6 PRN PRN Reason: Pain, moderate (4-7) Last Admin: 01/02/17 04:39 Dose: 650 mg Albuterol/Ipratropium (Duoneb 3 Mg/0.5 Mg (3 Ml) Ud) 3 ml INH RQ4 [facility] Last Admin: 01/05/17 15:35 Dose: 3 ml Docusate Sodium (Colace) 100 mg PO BID [facility] Last Admin: 01/05/17 10:03 Dose: 100 mg Ferrous Sulfate (Feosol) 325 mg PO DAILY [facility] Last Admin: 01/02/17 09:52 Dose: 325 mg Gabapentin (Neurontin) 100 mg PO BID [facility] Last Admin: 01/05/17 10:04 Dose: 100 mg Guaifenesin (Mucinex La) 600 mg PO BID [facility] Last Admin: 01/05/17 10:03 Dose: 600 mg Insulin Aspart (Novolog) 0 unit SC [facility] PRN Reason: Protocol Last Admin: 01/05/17 13:03 Dose: 4 unit Insulin Glargine (Lantus) 12 unit SC DAILY [facility] Last Admin: 01/05/17 10:02 Dose: 12 u Losartan Potassium (Cozaar) 25 mg PO DAILY [facility] Methylprednisolone (Solu-Medrol) 40 mg IVP Q12H [facility] Last Admin: 01/05/17 08:39 Dose: 40 mg Montelukast Sodium (Singulair) 10 mg PO HS [facility] Last Admin: 01/04/17 21:52 Dose: 10 mg Moxifloxacin HCl (Avelox) 400 mg PO DAILY [facility] Last Admin: 01/05/17 10:04 Dose: 400 mg Pantoprazole Sodium (Protonix Ec Tab) 40 mg PO DAILY [facility] Last Admin: 01/05/17 10:31 Dose: 40 mg Polyethylene Glycol (Miralax) 17 gm PO DAILY [facility] Last Admin: 01/05/17 10:03 Dose: 17 gm Promethazine HCl/Codeine (Phenergan/Codeine Oral Syrup) 5 ml PO Q6H PRN PRN Reason: Cough Last Admin: 01/02/17 00:16 Dose: 5 ml Fluticasone/Salmeterol (Advair Diskus 250/50) 1 puff INH RQ12 [facility] Temazepam (Restoril) 15 mg PO HS PRN PRN Reason: Insomnia Verapamil HCl (Calan Sr Tab) 240 mg PO DAILY [facility] Last Admin: 01/05/17 10:05 Dose: 240 mg - Labs Labs: 01/05/17 06:28 01/05/17 06:28 PT 11.5 SECONDS (9.7-12.2) 12/27/16 14:02 INR 1.0 12/27/16 14:02 APTT 26 SECONDS (21-34) 12/27/16 14:02 Attending/Attestation - Attestation I have personally seen and examined this patient.: Yes I have fully participated in the care of the patient.: Yes I have reviewed all pertinent clinical information, including history, physical exam and plan: Yes Notes (Text): Medical attending: Patient was seen and examined by me, agrees the above note by medical record consultant. The patient's breathing is somewhat improved from before, she still getting Solu-Medrol at this time. We did consider discharging the patient later on in the afternoon however from what I understand she was having a lot of difficulty walking at this time will get a PT/OT evaluation, the patient may need to go to subacute rehabilitation From what I understand the patient needs to follow-up with urology outpatient, pulmonology has given the okay clearance for the procedure at this time Thank you very much, Jonathan Nguyen 01/05/17 17:02
[2017-01-05] MEDS: Albuterol-Ipratrop 3 mg / 0.5 (3 ml) UD INH SCH ×4 (01:07→15:35)
[2017-01-05 06:58] LABS: POTASSIUM 4.6 mmol/L (3.6-5.2)
[2017-01-05 07:00] LABS: BILIRUBIN,TOTAL 0.5 mg/dL (0.2-1.3)
[2017-01-05 07:01] LABS: ALB/GLOB RATIO 1.4 (1.0-2.1); CALCIUM 8.4 mg/dl (8.6-10.4); MAGNESIUM 1.8 mg/dL (1.6-2.3); PHOSPHOROUS 5.3 mg/dL (2.5-4.5)
[2017-01-05 07:32] LABS: BASO % 0.2 % (0.0-2.0); HEMATOCRIT 28.1 % (34.0-47.0); LYMPH # 1.4 K/uL (1.0-4.3); LYMPH % 14.1 % (20.0-40.0); MEAN CELL VOLUME 70.9 fL (81.0-99.0); MEAN CORPUSCULAR HEMOGLOBIN 22.5 pg (27.0-31.0); MEAN CORPUSCULAR HGB CONC 31.7 g/dL (33.0-37.0); MEAN PLATELET VOLUME 8.8 fL (7.2-11.7); MONO # 0.7 K/uL (0.0-0.8); MONO % 7.5 % (0.0-10.0); RED CELL DISTRIBUTION WIDTH 17.5 % (11.5-14.5)
[2017-01-05] MEDS: MethylPREDNISolone 40 mg Vial IVP SCH (08:39)
[2017-01-05] MEDS: (Novolog) Insulin Aspart, Recombinant 100 u/ml 10 ml vial SC SCH ×3 (08:39→17:07)
[2017-01-05] MEDS: (Lantus) Insulin Glargine, Recombinant SC SCH (10:02)
[2017-01-05] MEDS: POLYETHYLENE GLYCOL 3350 17 GM/Dose PACKET PO SCH (10:03)
[2017-01-05] MEDS: guaiFENesin 600 mg ER Tab PO SCH (10:03)
[2017-01-05] MEDS: Verapamil 240 mg ER Tab PO SCH (10:05)
[2017-01-05] MEDS ORDERED: Pantoprazole 40 mg EC Tab PO SCH (10:30)
--- NOTE | 2017-01-05 13:30 | CP.PCM.DIS ---
<Phill Ruiz - Last Filed: 01/06/17 21:17> Provider - Provider Date of Admission: 12/27/16 15:43 Attending physician: Lex Herrmann MD Time Spent in preparation of Discharge (in minutes): 35 Hospital Course - Lab Results Lab Results: Micro Results 12/28/16 06:00 Urine Urine Culture - Final No Growth (<1,000 CFU/ML) Most Recent Lab Values WBC 10.0 K/uL (4.8-10.8) 01/05/17 06:28 RBC 3.96 Mil/uL (3.80-5.20) 01/05/17 06:28 Hgb 8.9 g/dL (11.0-16.0) L 01/05/17 06:28 Hct 28.1 % (34.0-47.0) L 01/05/17 06:28 MCV 70.9 fL (81.0-99.0) L 01/05/17 06:28 MCH 22.5 pg (27.0-31.0) L 01/05/17 06:28 MCHC 31.7 g/dL (33.0-37.0) L 01/05/17 06:28 RDW 17.5 % (11.5-14.5) H 01/05/17 06:28 Plt Count 258 K/uL (130-400) 01/05/17 06:28 MPV 8.8 fL (7.2-11.7) 01/05/17 06:28 Neut % (Auto) 78.2 % (50.0-75.0) H 01/05/17 06:28 Lymph % (Auto) 14.1 % (20.0-40.0) L 01/05/17 06:28 [place] % (Auto) 7.5 % (0.0-10.0) 01/05/17 06:28 Eos % (Auto) 0.0 % (0.0-4.0) 01/05/17 06:28 Baso % (Auto) 0.2 % (0.0-2.0) 01/05/17 06:28 Neut # 7.8 K/uL (1.8-7.0) H 01/05/17 06:28 Lymph # 1.4 K/uL (1.0-4.3) 01/05/17 06:28 [place] # 0.7 K/uL (0.0-0.8) 01/05/17 06:28 Eos # 0.0 K/uL (0.0-0.7) 01/05/17 06:28 Baso # 0.0 K/uL (0.0-0.2) 01/05/17 06:28 Neutrophils % (Manual) 83 % (50-75) H 01/03/17 06:10 Band Neutrophils % 1 % (0-2) 01/02/17 06:50 Lymphocytes % (Manual) 7 % (20-40) L 01/03/17 06:10 Monocytes % (Manual) 10 % (0-10) 01/03/17 06:10 Eosinophils % (Manual) 1 % (0-4) 01/02/17 06:50 Platelet Estimate Normal (NORMAL) 01/03/17 06:10 Large Platelets Present 01/03/17 06:10 Hypochromasia (manual) Slight 01/03/17 06:10 Poikilocytosis (manual Slight 01/02/17 06:50 Anisocytosis (manual) Slight 01/03/17 06:10 Microcytosis (manual) Slight 01/03/17 06:10 Macrocytosis (manual) Slight 01/01/17 11:09 Target Cells Slight 12/30/16 06:18 Ovalocytes Slight 01/03/17 06:10 Lu Cells Slight 01/01/17 11:09 Schistocytes Slight 01/03/17 06:10 PT 11.5 SECONDS (9.7-12.2) 12/27/16 14:02 INR 1.0 12/27/16 14:02 APTT 26 SECONDS (21-34) 12/27/16 14:02 D-Dimer, Quantitative < 200 ng/mlDDU (0-243) 12/27/16 20:35 Puncture Site Rra 12/31/16 11:00 pCO2 28 mm/Hg (35-45) L 12/31/16 11:00 pO2 88 mm/Hg (80-100) 12/31/16 11:00 HCO3 25.3 mmol/L (21-28) 12/31/16 11:00 ABG pH 7.52 (7.35-7.45) H 12/31/16 11:00 ABG Total CO2 23.8 mmol/L (22-28) 12/31/16 11:00 ABG O2 Saturation 99.5 % (95-98) H 12/31/16 11:00 ABG Base Excess 0.4 mmol/L (-2.0-3.0) 12/31/16 11:00 ABG Hemoglobin 8.3 g/dL (11.7-17.4) L 12/31/16 11:00 ABG Carboxyhemoglobin 1.9 % (0.5-1.5) H 12/31/16 11:00 POC ABG HHb (Measured) 0.5 % (0.0-5.0) 12/31/16 11:00 ABG Methemoglobin 0.9 % (0.0-3.0) 12/31/16 11:00 Yuri Test A 12/31/16 11:00 ABG Potassium 3.9 mmol/L (3.6-5.2) 12/27/16 14:08 VBG pH 7.48 (7.32-7.43) H 12/28/16 09:48 VBG pCO2 31 mmHg (40-60) L 12/28/16 09:48 VBG HCO3 25.0 mmol/L 12/28/16 09:48 VBG Total CO2 24.1 mmol/L (22-28) 12/28/16 09:48 VBG O2 Sat (Calc) 92.5 % (40-65) H 12/28/16 09:48 VBG Base Excess 0.4 mmol/L (0.0-2.0) 12/28/16 09:48 VBG Potassium 3.8 mmol/L (3.6-5.2) 12/28/16 09:48 A-a O2 Difference 27.0 mm/Hg 12/31/16 11:00 Respiratory Index 0.3 12/31/16 11:00 Hgb O2 Saturation 96.6 % (95.0-98.0) 12/31/16 11:00 Sodium 136.0 mmol/l (132-148) 12/28/16 09:48 Chloride 106.0 mmol/L (98-107) 12/28/16 09:48 Glucose 238 mg/dl (65-105) H 12/28/16 09:48 Lactate 2.1 mmol/L (0.7-2.1) 12/28/16 09:48 FiO2 21.0 % 12/31/16 11:00 Inspiratory BiPAP 12 12/27/16 14:08 Expiratory BiPAP 6 12/27/16 14:08 Crit Value Called To Massiel hwite rn 12/28/16 04:36 Crit Value Called By Kayy schultz rt 12/28/16 04:36 Crit Value Read Back Y 12/28/16 04:36 Blood Gas Notified Time 445 12/28/16 04:36 Sodium 129 mmol/L (132-148) L 01/05/17 06:28 Potassium 4.6 mmol/L (3.6-5.2) 01/05/17 06:28 Chloride 93 mmol/L (98-107) L 01/05/17 06:28 Carbon Dioxide 27 mmol/L (22-30) 01/05/17 06:28 Anion Gap 14 (10-20) 01/05/17 06:28 BUN 39 mg/dL (7-17) H 01/05/17 06:28 Creatinine 1.3 MG/DL (0.7-1.2) H 01/05/17 06:28 Est GFR ( Amer) 48 01/05/17 06:28 Est GFR (Non-Af Amer) 40 01/05/17 06:28 POC Glucose (mg/dL) 215 mg/dL (65-110) H 01/05/17 11:17 Random Glucose 219 mg/dL (65-105) H 01/05/17 06:28 Hemoglobin A1c 7.1 % (4.2-6.5) H 12/28/16 04:20 Lactic Acid 6.2 mmol/L (0.7-2.1) H* 12/27/16 19:58 Calcium 8.4 mg/dl (8.6-10.4) L 01/05/17 06:28 Phosphorus 5.3 mg/dL (2.5-4.5) H 01/05/17 06:28 Magnesium 1.8 mg/dL (1.6-2.3) 01/05/17 06:28 Iron 27 ug/dL (37-170) L 12/29/16 06:48 TIBC 346 ug/dL (250-450) 12/29/16 06:48 % Saturation 7.8 (20-55) L 12/29/16 06:48 Total Bilirubin 0.5 mg/dL (0.2-1.3) 01/05/17 06:28 AST 12 U/L (14-36) L 01/05/17 06:28 ALT 22 U/L (9-52) 01/05/17 06:28 Alkaline Phosphatase 53 U/L (38-126) 01/05/17 06:28 Total Creatine Kinase 157 U/L (30-135) H 12/27/16 14:02 CK-MB (Mass) 4.08 ng/mL (0.0-3.38) H 12/27/16 14:02 Troponin I < 0.0120 ng/mL (0.00-0.120) 12/27/16 14:02 NT-Pro-B Natriuret Pep 476 pg/mL (0-900) 12/27/16 14:02 Total Protein 6.0 g/dL (6.3-8.3) L 01/05/17 06:28 Albumin 3.5 g/dL (3.5-5.0) 01/05/17 06:28 Globulin 2.5 gm/dL (2.2-3.9) 01/05/17 06:28 Albumin/Globulin Ratio 1.4 (1.0-2.1) 01/05/17 06:28 Triglycerides 45 mg/dL (0-149) 12/28/16 04:20 Cholesterol 186 mg/dL (0-199) 12/28/16 04:20 LDL Cholesterol Direct 86 mg/dL (0-129) 12/28/16 04:20 HDL Cholesterol 81 mg/dL (30-70) H 12/28/16 04:20 Arterial Blood Potassium 3.9 mmol/L (3.6-5.2) 12/27/16 14:08 Venous Blood Potassium 3.8 mmol/L (3.6-5.2) 12/28/16 09:48 Urine Color Yellow (YELLOW) 12/28/16 05:00 Urine Clarity Hazy (Clear) 12/28/16 05:00 Urine pH 5.0 (5.0-8.0) 12/28/16 05:00 Ur Specific [place] 1.014 (1.003-1.030) 12/28/16 05:00 Urine Protein 2+ mg/dL (NEGATIVE) H 12/28/16 05:00 Urine Glucose (UA) Normal mg/dL (Normal) 12/28/16 05:00 Urine Ketones Negative mg/dL (NEGATIVE) 12/28/16 05:00 Urine Blood 2+ (NEGATIVE) H 12/28/16 05:00 Urine Nitrate Negative (NEGATIVE) 12/28/16 05:00 Urine Bilirubin Negative (NEGATIVE) 12/28/16 05:00 Urine Urobilinogen Normal mg/dL (0.2-1.0) 12/28/16 05:00 Ur Leukocyte Esterase Neg [place]/uL (Negative) 12/28/16 05:00 Urine WBC (Auto) 6 /hpf (0-5) H 12/28/16 05:00 Urine RBC (Auto) 121 /hpf (0-3) H 12/28/16 05:00 Ur Squamous Epith Cells < 1 /hpf (0-5) 12/28/16 05:00 Hyaline Casts 0-2 /lpf (0-2) 12/28/16 05:00 Influenza Typ A,B (EIA) Negative for flu a/b (NEGATIVE) 12/28/16 02:18 Mycoplasma pneumon IgG 1.19 (<=0.90) H 12/28/16 04:20 Mycoplasma pneumon IgM 309 U/mL (<770) 12/28/16 04:20 S.pneumoniae Type 1 IgG 0.9 mcg/mL 12/28/16 04:20 S.pneumoniae Type 3 IgG <0.3 mcg/mL 12/28/16 04:20 S.pneumoniae Type 4 IgG <0.3 mcg/mL 12/28/16 04:20 S.pneumoniae Type 5 IgG 0.8 mcg/mL 12/28/16 04:20 S.pneumoniae Type 8 IgG <0.3 mcg/mL 12/28/16 04:20 S.pneumoniae Type 9 IgG 0.4 mcg/mL 12/28/16 04:20 S.pneumoniae Typ 12 IgG <0.3 mcg/mL 12/28/16 04:20 S.pneumoniae Typ 14 IgG 1.0 mcg/mL 12/28/16 04:20 S.pneumonia Type 19 IgG 0.6 mcg/mL 12/28/16 04:20 S.pneumonia Type 23 IgG <0.3 mcg/mL 12/28/16 04:20 S.pneumoniae Typ 26 IgG <0.3 mcg/mL 12/28/16 04:20 S.pneumoniae Typ 51 IgG 3.2 mcg/mL 12/28/16 04:20 S.pneumoniae Typ 56 IgG 0.3 mcg/mL 12/28/16 04:20 S.pneumoniae Typ 68 IgG <0.3 mcg/mL 12/28/16 04:20 - Hospital Course Hospital Course: Patient is a 76 year old female with past medical history of a bladder tumor, DM , HTN, osteoporosis, asthma and shingles who presented with worsening shortness of breath, cough and body aches for two days. Patient was initially imaged with CXR and Renal U/S. CXR revealed hyperinflation w/ emphysematous changes in upper lobes. Renal ultrasound revealed severe hydronephrosis of right collecting system and bladder mass 3.4x3.6x4.4 cm. Mass has increased since last U/S. Abdomen/pelvis CT suspicious for BL masses w/ larger is located on right posteriorly obstructing right ureter. Incidental small sclerotic bony lesions found. Follow up CXR then showed small right pleural effusion and development of hazy opacities. Bone scan f/u showed abnormality on R anterior rib 7. Urine cytology atypical urothelial cells. Chest CT 12/29 revealed LLL posterior segmental consolidation consistent w/ infiltrate w/ L pleural thickening. JUDIE has 5-6 mm solid nodule similar to previous study. F/u in 12 months recommended. Consults w/ pulmonology (Dr. Almazan) initially denied clearance for cystoscopy, but upon improvement of patient, Dr. Almazan cleared patient for D/C and cystoscopy. Urology initially did not want to perform cystoscopy w/ bx on patient due to pulmonary concerns, and subsequently recommended outpatient cystoscopy w/ bx. Patient tolerated treatments throughout hospital stay, requiring changes from zolpidem to temazepam due to feeling of dizziness when treated w/ the former. Otherwise, patient improved from admission and tolerated treatments well. This is the patients second visit to this hospital with concerns to her bladder tumor. It was explained to her in June 2016 the importance for her to follow up with her urologist. However, she was lost to follow up. 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 It was explained multiple times with a magnetic tape typewriter operator and patient acknowledged her understanding of the situation and agreed to follow up with her doctors as directed. This is a brief account of her stay. For more details, please see her chart. - Date & Time of H&P Date of H&P: 01/05/17 Time of H&P: 07:00 Discharge Exam - Head Exam Head Exam: ATRAUMATIC, NORMAL INSPECTION - Eye Exam Eye Exam: EOMI - ENT Exam ENT Exam: Mucous Membranes Moist - Respiratory Exam Respiratory Exam: Wheezes, NORMAL BREATHING PATTERN - Cardiovascular Exam Cardiovascular Exam: REGULAR RHYTHM, RRR, +S1, +S2. absent: JVD - GI/Abdominal Exam GI & Abdominal Exam: Normal Bowel Sounds, Soft, Tenderness - Extremities Exam Extremities exam: full ROM, pedal pulses present - Back Exam Back exam: CVA tenderness (L). absent: rash noted - Neurological Exam Neurological exam: Alert, CN II-XII Intact, Oriented x3 - Psychiatric Exam Psychiatric exam: Normal Affect, Normal Mood - Skin Skin Exam: Dry, Intact, Normal Color, Warm Discharge Plan - Discharge Medications Prescriptions: Fluticasone/Salmeterol 250/50 [Advair Diskus 250/50] 1 puff INH RQ12 30 Days Gabapentin [Neurontin] 100 mg PO BID #60 cap guaiFENesin [Mucinex LA] 600 mg PO BID #30 tab Losartan [Cozaar] 25 mg PO DAILY #30 tab metFORMIN ER [glucoPHAGE XR] 500 mg PO BID #60 Montelukast Sodium [Singulair] 10 mg PO HS #30 tablet Moxifloxacin [Avelox] 400 mg PO DAILY #3 tab Verapamil HCl [Verapamil ER] 240 mg PO DAILY #30 - Follow Up Plan Condition: FAIR Disposition: HOME/ ROUTINE Instructions: Verapamil (By mouth), Guaifenesin (By mouth), Gabapentin (By mouth), Losartan (By mouth), Metformin (By mouth), Montelukast (By mouth), Moxifloxacin (By mouth), Fluticasone/Salmeterol (By breathing), Asthma (DC), Heart Healthy Diet (DC), Diabetic Foot Care (DC), COPD (Chronic Obstructive Pulmonary Disease) (DC), Basic Carbohydrate Counting (DC), Meal Planning with the Plate Method (DC), Meal Planning with Diabetes Exchanges (DC), Acute Abdominal Pain (DC), Hypertension (DC) Additional Instructions: Pt. is medically stable for discharge. Please follow up with Dr. Brock to schedule outpatient Cystoscopy as soon as possible. Dr. Brock [address] [place], [place] [phone] fax [phone] Please follow up with Dr. Almazan, a prevention rn within 1 week. [address], [place] [phone] Please follow up with your primary doctor, Dr. Medina within 2 weeks. [address] [place], [place] [phone] Thank you for allowing us to take part in your care. Referrals: Jesus Brock MD [Staff Provider] - Sekou Almazan MD [Staff Provider] - Darrell Tirado MD [Staff Provider] - <Wong Mancilla - Last Filed: 02/05/17 10:30> Provider - Provider Date of Admission: 12/27/16 15:43 Attending physician: Lex Herrmann MD Hospital Course - Lab Results Lab Results: Micro Results 12/28/16 06:00 Urine Urine Culture - Final No Growth (<1,000 CFU/ML) Most Recent Lab Values WBC 10.0 K/uL (4.8-10.8) 01/05/17 06:28 RBC 3.96 Mil/uL (3.80-5.20) 01/05/17 06:28 Hgb 8.9 g/dL (11.0-16.0) L 01/05/17 06:28 Hct 28.1 % (34.0-47.0) L 01/05/17 06:28 MCV 70.9 fL (81.0-99.0) L 01/05/17 06:28 MCH 22.5 pg (27.0-31.0) L 01/05/17 06:28 MCHC 31.7 g/dL (33.0-37.0) L 01/05/17 06:28 RDW 17.5 % (11.5-14.5) H 01/05/17 06:28 Plt Count 258 K/uL (130-400) 01/05/17 06:28 MPV 8.8 fL (7.2-11.7) 01/05/17 06:28 Neut % (Auto) 78.2 % (50.0-75.0) H 01/05/17 06:28 Lymph % (Auto) 14.1 % (20.0-40.0) L 01/05/17 06:28 [place] % (Auto) 7.5 % (0.0-10.0) 01/05/17 06:28 Eos % (Auto) 0.0 % (0.0-4.0) 01/05/17 06:28 Baso % (Auto) 0.2 % (0.0-2.0) 01/05/17 06:28 Neut # 7.8 K/uL (1.8-7.0) H 01/05/17 06:28 Lymph # 1.4 K/uL (1.0-4.3) 01/05/17 06:28 [place] # 0.7 K/uL (0.0-0.8) 01/05/17 06:28 Eos # 0.0 K/uL (0.0-0.7) 01/05/17 06:28 Baso # 0.0 K/uL (0.0-0.2) 01/05/17 06:28 Neutrophils % (Manual) 83 % (50-75) H 01/03/17 06:10 Band Neutrophils % 1 % (0-2) 01/02/17 06:50 Lymphocytes % (Manual) 7 % (20-40) L 01/03/17 06:10 Monocytes % (Manual) 10 % (0-10) 01/03/17 06:10 Eosinophils % (Manual) 1 % (0-4) 01/02/17 06:50 Platelet Estimate Normal (NORMAL) 01/03/17 06:10 Large Platelets Present 01/03/17 06:10 Hypochromasia (manual) Slight 01/03/17 06:10 Poikilocytosis (manual Slight 01/02/17 06:50 Anisocytosis (manual) Slight 01/03/17 06:10 Microcytosis (manual) Slight 01/03/17 06:10 Macrocytosis (manual) Slight 01/01/17 11:09 Target Cells Slight 12/30/16 06:18 Ovalocytes Slight 01/03/17 06:10 [place] Cells Slight 01/01/17 11:09 Schistocytes Slight 01/03/17 06:10 PT 11.5 SECONDS (9.7-12.2) 12/27/16 14:02 INR 1.0 12/27/16 14:02 APTT 26 SECONDS (21-34) 12/27/16 14:02 D-Dimer, Quantitative < 200 ng/mlDDU (0-243) 12/27/16 20:35 Puncture Site Rra 12/31/16 11:00 pCO2 28 mm/Hg (35-45) L 12/31/16 11:00 pO2 88 mm/Hg (80-100) 12/31/16 11:00 HCO3 25.3 mmol/L (21-28) 12/31/16 11:00 ABG pH 7.52 (7.35-7.45) H 12/31/16 11:00 ABG Total CO2 23.8 mmol/L (22-28) 12/31/16 11:00 ABG O2 Saturation 99.5 % (95-98) H 12/31/16 11:00 ABG Base Excess 0.4 mmol/L (-2.0-3.0) 12/31/16 11:00 ABG Hemoglobin 8.3 g/dL (11.7-17.4) L 12/31/16 11:00 ABG Carboxyhemoglobin 1.9 % (0.5-1.5) H 12/31/16 11:00 POC ABG HHb (Measured) 0.5 % (0.0-5.0) 12/31/16 11:00 ABG Methemoglobin 0.9 % (0.0-3.0) 12/31/16 11:00 Yuri Test A 12/31/16 11:00 ABG Potassium 3.9 mmol/L (3.6-5.2) 12/27/16 14:08 VBG pH 7.48 (7.32-7.43) H 12/28/16 09:48 VBG pCO2 31 mmHg (40-60) L 12/28/16 09:48 VBG HCO3 25.0 mmol/L 12/28/16 09:48 VBG Total CO2 24.1 mmol/L (22-28) 12/28/16 09:48 VBG O2 Sat (Calc) 92.5 % (40-65) H 12/28/16 09:48 VBG Base Excess 0.4 mmol/L (0.0-2.0) 12/28/16 09:48 VBG Potassium 3.8 mmol/L (3.6-5.2) 12/28/16 09:48 A-a O2 Difference 27.0 mm/Hg 12/31/16 11:00 Respiratory Index 0.3 12/31/16 11:00 Hgb O2 Saturation 96.6 % (95.0-98.0) 12/31/16 11:00 Sodium 136.0 mmol/l (132-148) 12/28/16 09:48 Chloride 106.0 mmol/L (98-107) 12/28/16 09:48 Glucose 238 mg/dl (65-105) H 12/28/16 09:48 Lactate 2.1 mmol/L (0.7-2.1) 12/28/16 09:48 FiO2 21.0 % 12/31/16 11:00 Inspiratory BiPAP 12 12/27/16 14:08 Expiratory BiPAP 6 12/27/16 14:08 Crit Value Called To Massiel white rn 12/28/16 04:36 Crit Value Called By Kayy schultz rt 12/28/16 04:36 Crit Value Read Back Y 12/28/16 04:36 Blood Gas Notified Time 445 12/28/16 04:36 Sodium 129 mmol/L (132-148) L 01/05/17 06:28 Potassium 4.6 mmol/L (3.6-5.2) 01/05/17 06:28 Chloride 93 mmol/L (98-107) L 01/05/17 06:28 Carbon Dioxide 27 mmol/L (22-30) 01/05/17 06:28 Anion Gap 14 (10-20) 01/05/17 06:28 BUN 39 mg/dL (7-17) H 01/05/17 06:28 Creatinine 1.3 MG/DL (0.7-1.2) H 01/05/17 06:28 Est GFR ( Amer) 48 01/05/17 06:28 Est GFR (Non-Af Amer) 40 01/05/17 06:28 POC Glucose (mg/dL) 343 mg/dL (65-110) H 01/05/17 16:15 Random Glucose 219 mg/dL (65-105) H 01/05/17 06:28 Hemoglobin A1c 7.1 % (4.2-6.5) H 12/28/16 04:20 Lactic Acid 6.2 mmol/L (0.7-2.1) H* 12/27/16 19:58 Calcium 8.4 mg/dl (8.6-10.4) L 01/05/17 06:28 Phosphorus 5.3 mg/dL (2.5-4.5) H 01/05/17 06:28 Magnesium 1.8 mg/dL (1.6-2.3) 01/05/17 06:28 Iron 27 ug/dL (37-170) L 12/29/16 06:48 TIBC 346 ug/dL (250-450) 12/29/16 06:48 % Saturation 7.8 (20-55) L 12/29/16 06:48 Total Bilirubin 0.5 mg/dL (0.2-1.3) 01/05/17 06:28 AST 12 U/L (14-36) L 01/05/17 06:28 ALT 22 U/L (9-52) 01/05/17 06:28 Alkaline Phosphatase 53 U/L (38-126) 01/05/17 06:28 Total Creatine Kinase 157 U/L (30-135) H 12/27/16 14:02 CK-MB (Mass) 4.08 ng/mL (0.0-3.38) H 12/27/16 14:02 Troponin I < 0.0120 ng/mL (0.00-0.120) 12/27/16 14:02 NT-Pro-B Natriuret Pep 476 pg/mL (0-900) 12/27/16 14:02 Total Protein 6.0 g/dL (6.3-8.3) L 01/05/17 06:28 Albumin 3.5 g/dL (3.5-5.0) 01/05/17 06:28 Globulin 2.5 gm/dL (2.2-3.9) 01/05/17 06:28 Albumin/Globulin Ratio 1.4 (1.0-2.1) 01/05/17 06:28 Triglycerides 45 mg/dL (0-149) 12/28/16 04:20 Cholesterol 186 mg/dL (0-199) 12/28/16 04:20 LDL Cholesterol Direct 86 mg/dL (0-129) 12/28/16 04:20 HDL Cholesterol 81 mg/dL (30-70) H 12/28/16 04:20 Arterial Blood Potassium 3.9 mmol/L (3.6-5.2) 12/27/16 14:08 Venous Blood Potassium 3.8 mmol/L (3.6-5.2) 12/28/16 09:48 Urine Color Yellow (YELLOW) 12/28/16 05:00 Urine Clarity Hazy (Clear) 12/28/16 05:00 Urine pH 5.0 (5.0-8.0) 12/28/16 05:00 Ur Specific [place] 1.014 (1.003-1.030) 12/28/16 05:00 Urine Protein 2+ mg/dL (NEGATIVE) H 12/28/16 05:00 Urine Glucose (UA) Normal mg/dL (Normal) 12/28/16 05:00 Urine Ketones Negative mg/dL (NEGATIVE) 12/28/16 05:00 Urine Blood 2+ (NEGATIVE) H 12/28/16 05:00 Urine Nitrate Negative (NEGATIVE) 12/28/16 05:00 Urine Bilirubin Negative (NEGATIVE) 12/28/16 05:00 Urine Urobilinogen Normal mg/dL (0.2-1.0) 12/28/16 05:00 Ur Leukocyte Esterase Neg [place]/uL (Negative) 12/28/16 05:00 Urine WBC (Auto) 6 /hpf (0-5) H 12/28/16 05:00 Urine RBC (Auto) 121 /hpf (0-3) H 12/28/16 05:00 Ur Squamous Epith Cells < 1 /hpf (0-5) 12/28/16 05:00 Hyaline Casts 0-2 /lpf (0-2) 12/28/16 05:00 Influenza Typ A,B (EIA) Negative for flu a/b (NEGATIVE) 12/28/16 02:18 Mycoplasma pneumon IgG 1.19 (<=0.90) H 12/28/16 04:20 Mycoplasma pneumon IgM 309 U/mL (<770) 12/28/16 04:20 S.pneumoniae Type 1 IgG 0.9 mcg/mL 12/28/16 04:20 S.pneumoniae Type 3 IgG <0.3 mcg/mL 12/28/16 04:20 S.pneumoniae Type 4 IgG <0.3 mcg/mL 12/28/16 04:20 S.pneumoniae Type 5 IgG 0.8 mcg/mL 12/28/16 04:20 S.pneumoniae Type 8 IgG <0.3 mcg/mL 12/28/16 04:20 S.pneumoniae Type 9 IgG 0.4 mcg/mL 12/28/16 04:20 S.pneumoniae Typ 12 IgG <0.3 mcg/mL 12/28/16 04:20 S.pneumoniae Typ 14 IgG 1.0 mcg/mL 12/28/16 04:20 S.pneumonia Type 19 IgG 0.6 mcg/mL 12/28/16 04:20 S.pneumonia Type 23 IgG <0.3 mcg/mL 12/28/16 04:20 S.pneumoniae Typ 26 IgG <0.3 mcg/mL 12/28/16 04:20 S.pneumoniae Typ 51 IgG 3.2 mcg/mL 12/28/16 04:20 S.pneumoniae Typ 56 IgG 0.3 mcg/mL 12/28/16 04:20 S.pneumoniae Typ 68 IgG <0.3 mcg/mL 12/28/16 04:20 Attending/Attestation - Attestation I have personally seen and examined this patient.: Yes I have fully participated in the care of the patient.: Yes I have reviewed all pertinent clinical information, including history, physical exam and plan: Yes Notes (Text): Patient seen and examined with the resident. Agree with the resident's evaluation, assessment and plan. Diagnoses of bladder needs continued work up and treatment as an outpatient.
[2017-01-05 15:22] VITALS: BP 165/85; PULSE 92; TEMP 98.3; O2SAT 99
[2017-01-05] MEDS ORDERED: Fluticasone-Salmeterol 250-50mcg Diskus INH SCH (20:00)
== END 2017-01-05 17:10 | disposition home or self-care (01) | DRG 190 ==
LOC: C.ER 13:27 → C.9E 15:43 → C.6T 12-28 14:32
PROVIDERS: ADMIT Hospitalist; ATTEND Internal Medicine
PROC: 5A09457 Assistance with Respiratory Ventilation, 24-96 Consecutive Hours, Continuous Positive Airway Pressure (ICD-10-PCS; principal; 2016-12-27)
DX: J44.0 Chronic obstructive pulmonary disease with (acute) lower respiratory infection (principal); J18.9 Pneumonia, unspecified organism; E87.3 Alkalosis; E11.22 Type 2 diabetes mellitus with diabetic chronic kidney disease; N13.30 Unspecified hydronephrosis; J45.901 Unspecified asthma with (acute) exacerbation; B02.29 Other postherpetic nervous system involvement; N32.0 Bladder-neck obstruction; J44.1 Chronic obstructive pulmonary disease with (acute) exacerbation; D64.9 Anemia, unspecified; I12.9 Hypertensive chronic kidney disease with stage 1 through stage 4 chronic kidney disease, or unspecified chronic kidney disease; N18.9 Chronic kidney disease, unspecified; F41.9 Anxiety disorder, unspecified; M81.0 Age-related osteoporosis without current pathological fracture; R91.1 Solitary pulmonary nodule; N32.9 Bladder disorder, unspecified; Z87.891 Personal history of nicotine dependence; R31.29 Other microscopic hematuria; G47.00 Insomnia, unspecified; K59.00 Constipation, unspecified

== ENCOUNTER 2017-02-05 15:43 | Emergency (ER) | payer MEDICARE, OTHER ==
[2017-02-05 15:53] VITALS: BMI 23.8
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
--- NOTE | 2017-02-05 17:12 | RAD ---
PROCEDURE: Right knee dated 02/05/2017 HISTORY: Injury. COMPARISON: None. FINDINGS: BONES: Current study reveals no evidence of acute displaced fracture nor dislocation. The osseous structures intact. JOINTS: Joint spaces are relatively preserved. There appears to be small calcifications within the medial and lateral joint space margins consistent with chondrocalcinosis. Rule out CPPD. JOINT EFFUSION: No significant joint effusion. OTHER FINDINGS: None. IMPRESSION: No acute fractures. Findings consistent with chondrocalcinosis. Rule out CPPD.
--- NOTE | 2017-02-05 17:15 | RAD ---
HISTORY: injury COMPARISON: No prior. FINDINGS: BONES: No acute compression fractures nor retropulsed fragments. Mild chronic appearing anterior wedge deformities of a few upper/mid thoracic segments noted. The vertebral bodies exhibit normal alignment. No evidence of retropulsed fragments. If symptoms persist or underlying acute fracture suspected clinically recommend followup CT scan. Mild subclinical levoscoliosis DISC SPACES: Mild multilevel degenerative spondylosis. Changes include varying degrees of mild disc space narrowing endplate eburnation and small anterolateral osteophyte formation. SOFT TISSUES: Soft tissues appear grossly unremarkable OTHER FINDINGS: None. IMPRESSION: Minor chronic appearing anterior wedge deformities of a few mid upper/mid thoracic segments. No evidence retropulsed fragments. If symptoms persist or acute fracture suspected clinically recommend followup CT scan. Mild multilevel degenerative spondylosis as above.
--- NOTE | 2017-02-05 17:19 | RAD ---
PROCEDURE: Cervical spine dated 02/05/2017. Lateral open-mouth and AP views with guided extended llamas position performed. Findings: Note that the examination is somewhat limited due to partial obscuration of the odontoid by overlying occiput in the open-mouth position. The odontoid is also poorly visualized in the extended llamas view. HISTORY: Pain. COMPARISON: No prior studies available comparison. FINDINGS: BONES: No evidence of acute compression fractures no retropulsed fragments. . Minor chronic anterior stature loss of several vertebral body segments felt to be degenerative in origin. Very minimal posterior subluxation C3 over C4 and to a lesser degree C2 over C3 of this is felt to be physiologic in part due to hyperextension in the lateral projection. Vertebral bodies and facets are otherwise normally aligned. DISC SPACES: Multilevel degenerative spondylosis. Changes include varying degrees of the mild posterior disc space narrowing with small marginal anterior and posterior osteophyte formation former larger than latter. The uncovertebral and facet joints are moderately hypertrophic throughout. SOFT TISSUES: Prevertebral soft tissues unremarkable. OTHER FINDINGS: None. IMPRESSION: Slightly limited study as described. No acute fractures seen within the limitation of this exam. Multilevel degenerative spondylosis. If symptoms persist or acute fracture suspected clinically consider followup CT scan
--- NOTE | 2017-02-05 17:23 | RAD ---
PROCEDURE: Right wrist dated 02/05/2017. HISTORY: injury COMPARISON: None. FINDINGS: BONES: No definitive radiographic evidence of acute displaced fracture nor dislocation. The osseous structures intact. No cortical destructive changes. There appears be some triscaphe DJD. Mild DJD 1st metacarpal and trapezial articulation. JOINTS: Normal. No dislocation. SOFT TISSUES: Normal. OTHER FINDINGS: None. IMPRESSION: No evidence of acute displaced fracture nor dislocation. If symptoms persist or occult fracture suspected clinically recommend repeat radiographs in 5-10 days as most fractures should become radiographically evident in this timeframe. The
[2017-02-05 18:04] VITALS: BP 119/70; PULSE 84; RESP 18; TEMP 97.6; O2SAT 98
--- NOTE | 2017-02-06 18:51 | RAD ---
HISTORY: Cough COMPARISON: Comparison made with the chest radiograph and CT scan chest 12/28/2016 and 12/29/2016 respectively. TECHNIQUE: Chest PA and lateral FINDINGS: LUNGS: Hyperinflation consistent with centrilobular emphysema upper lobe predominance. Mild bibasilar lung consistent or infiltrates. Tiny right-sided Bochdalek's hernia is not appreciated on this study PLEURA: No significant pleural effusion identified. No pneumothorax apparent. CARDIOVASCULAR: Heart appears mildly enlarged OSSEOUS STRUCTURES: No significant abnormalities. VISUALIZED UPPER ABDOMEN: Normal. OTHER FINDINGS: None. IMPRESSION: Hyperinflation consistent with centrilobular emphysema upper lobe predominance. Note these changes are seen to better advantage on prior CT scan chest. Mild bibasilar atelectasis and or scarring
== END 2017-02-05 18:04 | disposition home or self-care (01) ==
LOC: C.ER 15:43
DX: S16.1XXA Strain of muscle, fascia and tendon at neck level, initial encounter (principal); S63.501A Unspecified sprain of right wrist, initial encounter; S20.229A Contusion of unspecified back wall of thorax, initial encounter; S80.01XA Contusion of right knee, initial encounter; Y08.89XA Assault by other specified means, initial encounter

== ENCOUNTER 2017-02-25 07:15 | Day surgery (SDC) | payer MEDICARE, OTHER ==
[2017-02-10 15:33] VITALS: BMI 20.6
[2017-02-25] MEDS ORDERED: Lactated Ringer's 1,000 ML IV ONE (08:58)
[2017-02-25] MEDS ORDERED: Lidocaine 2% Jelly (Uro-Jet) ONE (09:08)
[2017-02-25] MEDS ORDERED: Iohexol 240 (50 ml) ONE (09:08)
[2017-02-25] MEDS ORDERED: cefTRIAXone IV 1 gm in Dextros 50 ML IVPB ONE (09:08)
[2017-02-25] MEDS ORDERED: Propofol 10 mg/ml Inj (20 ML) ONE (09:12)
[2017-02-25] MEDS ORDERED: Albuterol HFA 90 mcg/actuation (8 g) ONE (09:13)
[2017-02-25] MEDS ORDERED: Midazolam 2 MG/2 ML VIAL ONE ×2 (09:13→09:49)
[2017-02-25] MEDS ORDERED: Albuterol 0.083% Inhal Sol (2.5 mg/3 mL) UD INH ONE (09:59)
[2017-02-25] MEDS ORDERED: HYDROmorphone 0.5 mg/0.5 ml ISec IVP PRN (09:59)
--- NOTE | 2017-02-25 10:45 | OP ---
PROCEDURE DATE: 02/25/2017 PREOPERATIVE DIAGNOSES: Bladder masses with right hydronephrosis. POSTOPERATIVE DIAGNOSES: Bladder masses with right hydronephrosis. PROCEDURE: Cystoscopy with bladder biopsies of right bladder mass and fulguration of biopsy and blee ding sites. ANESTHESIA: Local anesthesia plus IV sedation with Dr. Walters and nurse technical programs manager, Anabel. DESCRIPTION OF PROCEDURE: The patient was placed on the cystoscopy table in the dorsal lithotomy pos ition, prepped and draped in usual sterile fashion with Betadine solution. A KUB was obtained. Appr oximately 5 mL of 2% Xylocaine jelly were injected intraurethrally, followed by insertion of a #22 Fr ench Storz cystoscope into the bladder under IV sedation. Sterile water was used as the irrigating s olution throughout the entire procedure. The bladder was examined in all 4 quadrants and there were multiple bladder masses seen in the bladder. The largest was greater than 4 cm on the right lateral wall and trigone and posterior wall, completely covering the right ureteral orifice, which was not vi sualized. The left ureteral orifice was visualized and there were additional bladder masses on the l eft trigone, at least 2 or 3 of these masses were visualized. These were no more than 2 cm in diamet er. The right bladder mass was greater than 4 cm or 5 cm. There was oozing from the right bladder m ass. Multiple biopsies were taken from this bladder mass, placed in formalin and sent to pathology. The biopsy and bleeding sites were then fulgurated using the coagulating current set at [address] oughout the entire procedure. The rest of the bladder mucosa appeared to be relatively smooth with m inimal trabeculation. At the end of the procedure, the bladder was thoroughly irrigated with removal of all clots. The patient tolerated the procedure well with about 30 mL of blood loss and was broug ht to the recovery area in satisfactory condition. PLAN: For this patient will be to discharge the patient home on Ceftin 500 mg b.i.d. for 5 days. Th e patient will be seen in office followup in about 2 weeks to discuss the pathology results and futur e treatment. The patient also will be advised not to start any type of aspirin or anti-inflammatory products or blood thinners until she is voiding elena urine well. Jesus Brock MD cc: [id number] TT: 02/25/2017 10:44:54 [facility] # [id number] en
[2017-02-25 12:15] VITALS: BP 149/64; PULSE 82; RESP 20; TEMP 97.8; O2SAT 98
--- NOTE | 2017-02-25 12:45 | RAD ---
HISTORY: BLADDER TUMOR COMPARISON: No prior. FINDINGS: BOWEL: Stool retention No obstruction. No free air. BONES: Diffuse lumbar spondylosis. Bilateral hip arthrosis. Partially visualized vascular calcifications right groin OTHER FINDINGS: Multiple phleboliths and/or injection granulomas project over the central right paracentral abdomen and right lower abdominal/pelvis IMPRESSION: Stool retention. No bowel obstruction suggested on this exam
== END 2017-02-25 12:05 | disposition home or self-care (01) ==
LOC: C.SDS 07:15
PROVIDERS: ATTEND Urology
DX: C67.9 Malignant neoplasm of bladder, unspecified (principal); R30.0 Dysuria; N13.30 Unspecified hydronephrosis
CPT/HCPCS: 52204; 74000; 88305; J0696; J7120